=== PATIENT | female | born 1945 | race Caucasian/White ===

== ENCOUNTER 2018-06-09 20:01 | Emergency (ER) | payer MEDICARE ==
[2018-06-09 21:19] LABS: ABS Basophils 0 10^3/ul (0-0.2); ABS Eosinophils 0.2 10^3/ul (0-0.6); ABS Lymphocytes 0.9 10^3/ul (1.0-4.8); ABS Monocytes 0.9 10^3/ul (0-0.8); ABS Neutrophils 7.4 10^3/ul (1.5-7.7); ABS Nucleated RBC 0 10^3/ul; Hematocrit 36 % (35-47); Hemoglobin 12.1 g/dl (12.0-16.0); Lymphocyte % 9.6 % (25-47); Mean Corpuscular HGB Conc 34 g/dl (31-36); Mean Corpuscular Hemoglobin 32 pg (27-31); Mean Corpuscular Volume 97 fL (80-97); Nucleated Red Blood Cells % 0.1; Platelet Count 163 10^3/ul (150-450); Red Blood Count 3.75 10^6/ul (4.00-5.40); Red Cell Distribution Width 15 % (10.5-15); White Blood Count 9.4 10^3/ul (3.5-10.8)
[2018-06-09 21:38] LABS: EGFR Non-African American 57.8 (>60)
[2018-06-09] MEDS ORDERED: Ketorolac INJ* 30 MG/ML 1 ML VIAL IM ONE (22:52)
[2018-06-09 23:08] LABS: Urine Appearance Cloudy; Urine Blood 3+ (Negative); Urine Color Yellow; Urine Ketones Negative (Negative); Urine Protein Negative (Negative); Urine Red Blood Cell 3+(>10/hpf) (Absent); Urine Urobilinogen Negative (Negative); Urine White Blood Cell 2+(11-20/hpf) (Absent)
[2018-06-10] MEDS ORDERED: Tamsulosin CAP* 0.4 MG PO ONE (00:29)
--- NOTE | 2018-06-10 00:38 | ED ---
GI/ HPI - HPI Summary HPI Summary: 73-year-old female presents with left-sided flank pain for the past 2 days. She states that it started lower abdomen has moved around her abdomen but is now located mostly in the left lower quadrant. She denies any dysuria or hematuria. She has more pain when she tries to urinate. No previous belly surgeries. No medical conditions. She admits to nausea and vomiting. She admits to constipation. No diarrhea. No blood in her stool. She denies any history of diverticulitis. - History of Current Complaint Chief Complaint: EDFlankPain Time Seen by Provider: 06/09/18 22:40 Stated Complaint: LT SIDE FLANK PAIN Pain Intensity: 10 - Additional Pertinent History Primary Care Physician: KWAN - Allergy/Home Medications Allergies/Adverse Reactions: Allergies Allergy/AdvReac Type Severity Reaction Status Date / Time No Known Allergies Allergy Verified 06/09/18 20:05 Home Medications: Home Medications dilTIAZem HCl [Cartia Xt] 120 mg PO DAILY 06/09/18 [History Confirmed 06/09/18] fentaNYL PATCH 12 MCG/HR * [Duragesic Patch 12 Mcg/Hr *] 12 mcg TRANSDERM Q72H 06/09/18 [History Confirmed 06/09/18] fentaNYL PATCH 25 MCG/HR* [Duragesic PATCH 25 Mcg/Hr*] 25 mcg TRANSDERM Q72H [History Confirmed 06/09/18] oxyCODONE TAB* [Roxycodone TAB 5 mg*] 5 mg PO TID PRN MDD 15 mg 06/09/18 [ History Confirmed 06/09/18] PMH/Surg Hx/FS Hx/Imm Hx Endocrine/Hematology History: Reports: Hx Anticoagulant Therapy - asa, Hx Systemic Lupus Erythematosus, Hx Thyroid Disease - HYPOTHYROIDISM, Other Endocrine/Hematological Disorders - thrombocytopenia, hx lyme disease Denies: Hx Diabetes Cardiovascular History: Reports: Other Cardiovascular Problems/Disorders - A-FIB Denies: Hx Congestive Heart Failure, Hx Hypertension, Hx Pacemaker/ICD Respiratory History: Reports: Hx Chronic Bronchitis, Hx Seasonal Allergies, Hx Sleep Apnea - HAD PRIOR TO LOSING WEIGHT, Other Respiratory Problems/Disorders - QUIT SMOKING 03/2016 Denies: Hx Chronic Obstructive Pulmonary Disease (COPD) GI History: Reports: Hx Cirrhosis, Hx Gastroesophageal Reflux Disease, Hx Ulcer - HX OF SMALL ULCER, NO PROBLEMS NOW, Other GI Disorders - CONSTIPATION History: Reports: Hx Kidney Stones - HX OF KIDNEY STONE Denies: Hx Renal Disease, Other Problems/Disorders Musculoskeletal History: Reports: Hx Arthritis, Hx Back Problems - L3--L4 L4-- L5 fusion, Other Musculoskeletal History - chronic joint pain, obesity, osteoporosis Denies: Hx Osteoporosis Sensory History: Reports: Hx Cataracts, Hx Contacts or Glasses - READING, Hx Hearing Problem - tinnitus nos Denies: Hx Hearing Aid Opthamlomology History: Reports: Hx Cataracts, Hx Contacts or Glasses - READING Neurological History: Reports: Other Neuro Impairments/Disorders - OCCASIONAL DIZZINESS, Psychiatric History: Reports: Hx Anxiety - CLAUSTROPHOBIC IN TIGHT SPACES Denies: Hx Panic Disorder - Cancer History Cancer Type, 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 INCISION AND DRAINAGE OF LOWER TOOTH FOR INFECTION, [facility]. 2012 BILATERAL CATARACT EXTRACTION WITH IOL IMPLANT, [facility]. 2014 CYSTOSCOPY WITH MULTIPLE BLADDER BIOPSIES AND FULGERATION, [facility]. 05/22/2016 EBUS WITH ANESTHESIA, [facility]. 07/18/16 THORACOTOMY WITH LEFT LOWER LOBECTOMY Hx Anesthesia Reactions: No - Immunization History Immunizations Up to Date: Yes Infectious Disease History: No Infectious Disease History: Reports: Hx Hepatitis - HX AUTOIMMUNE HEPATITIS ( ) WITH SCARRING TO LIVER Denies: Traveled Outside the [place] in Last 30 Days - Family History Known Family History: Positive: Other Family History: Breast CA - Social History Alcohol Use: Rare Hx Substance Use: No Substance Use Type: Reports: None Substance Use Comment - Amount & Last Used: FENTANYL PATCHES Hx Tobacco Use: Yes Smoking Status (MU): Former Smoker Type: Cigarettes Amount Used/How Often: 1/2 -1 PPD Length of Time of Smoking/Using Tobacco: 45 YEARS Have You Smoked in the Last Year: Yes Review of Systems Negative: Fever Negative: Chest Pain Negative: Shortness Of Breath Positive: Abdominal Pain, Vomiting, Nausea. Negative: Diarrhea All Other Systems Reviewed And Are Negative: Yes Physical Exam Triage Information Reviewed: Yes Vital Signs On Initial Exam: Initial Vitals Temp Pulse Resp BP Pulse Ox 98.9 F 78 17 163/77 98 06/09/18 20:05 06/09/18 20:05 06/09/18 20:05 06/09/18 20:05 06/09/18 20:05 Vital Signs Reviewed: Yes Appearance: Positive: Well-Appearing Skin: Positive: Warm, Dry Head/Face: Positive: Normal Head/Face Inspection Eyes: Positive: Normal, Conjunctiva Clear ENT: Positive: Pharynx normal Respiratory/Lung Sounds: Positive: Clear to Auscultation, Breath Sounds Present Cardiovascular: Positive: Normal, RRR Abdomen Description: Positive: Soft, CVA Tenderness (L), Other: - LLQ Bowel Sounds: Positive: Present Musculoskeletal: Positive: Normal Neurological: Positive: Normal Psychiatric: Positive: Normal Diagnostics - Vital Signs Vital Signs Temp Pulse Resp BP Pulse Ox 06/09/18 23:34 68 18 140/77 95 06/09/18 20:05 98.9 F 78 17 163/77 98 - Laboratory Lab Results: Lab Results 06/09/18 06/09/18 06/09/18 Range/Units 21:10 21:10 21:10 WBC 9.4 (3.5-10.8) 10^3/ul RBC 3.75 L (4.00-5.40) 10^6/ul Hgb 12.1 (12.0-16.0) g/dl Hct 36 (35-47) % MCV 97 (80-97) fL MCH 32 H (27-31) pg MCHC 34 (31-36) g/dl RDW 15 (10.5-15) % Plt Count 163 (150-450) 10^3/ul MPV 9.0 (7.4-10.4) um3 Neut % (Auto) 78.6 (38-83) % Lymph % (Auto) 9.6 L (25-47) % [place] % (Auto) 9.3 H (0-7) % Eos % (Auto) 2.0 (0-6) % Baso % (Auto) 0.5 (0-2) % Absolute Neuts (auto) 7.4 (1.5-7.7) 10^3/ul Absolute Lymphs (auto) 0.9 L (1.0-4.8) 10^3/ul Absolute Monos (auto) 0.9 H (0-0.8) 10^3/ul Absolute Eos (auto) 0.2 (0-0.6) 10^3/ul Absolute Basos (auto) 0 (0-0.2) 10^3/ul Absolute Nucleated RBC 0 10^3/ul Nucleated RBC % 0.1 Sodium 141 (135-145) mmol/L Potassium 4.0 (3.5-5.0) mmol/L Chloride 106 (101-111) mmol/L Carbon Dioxide 29 (22-32) mmol/L Anion Gap 6 (2-11) mmol/L BUN 23 (6-24) mg/dL Creatinine 0.95 (0.51-0.95) mg/dL Est GFR ( Amer) 70.0 (>60) Est GFR (Non-Af Amer) 57.8 (>60) BUN/Creatinine Ratio 24.2 H (8-20) Glucose 128 H (70-100) mg/dL Lactic Acid 0.9 (0.5-2.0) mmol/L Calcium 9.5 (8.6-10.3) mg/dL Total Bilirubin 0.50 (0.2-1.0) mg/dL AST 27 (13-39) U/L ALT 16 (7-52) U/L Alkaline Phosphatase 92 (34-104) U/L C-Reactive Protein 14.33 H (<8.01) mg/L Total Protein 7.5 (6.4-8.9) g/dL Albumin 3.7 (3.2-5.2) g/dL Globulin 3.8 (2-4) g/dL Albumin/Globulin Ratio 1.0 (1-3) Lipase 28 (11.0-82.0) U/L Urine Color Urine Appearance Urine pH (5-9) Ur Specific [place] (1.010-1.030) Urine Protein (Negative) Urine Ketones (Negative) Urine Blood (Negative) Urine Nitrate (Negative) Urine Bilirubin (Negative) Urine Urobilinogen (Negative) Ur Leukocyte Esterase (Negative) Urine WBC (Auto) (Absent) Urine RBC (Auto) (Absent) Ur Squamous Epith Cells (Absent) Calcium Oxalate Crystal (Absent) Urine Bacteria (Absent) Hyaline Casts (Absent) Urine Glucose (Negative) Urine Ascorbic Acid (Negative) 06/09/18 Range/Units 22:55 WBC (3.5-10.8) 10^3/ul RBC (4.00-5.40) 10^6/ul Hgb (12.0-16.0) g/dl Hct (35-47) % MCV (80-97) fL MCH (27-31) pg MCHC (31-36) g/dl RDW (10.5-15) % Plt Count (150-450) 10^3/ul MPV (7.4-10.4) um3 Neut % (Auto) (38-83) % Lymph % (Auto) (25-47) % [place] % (Auto) (0-7) % Eos % (Auto) (0-6) % Baso % (Auto) (0-2) % Absolute Neuts (auto) (1.5-7.7) 10^3/ul Absolute Lymphs (auto) (1.0-4.8) 10^3/ul Absolute Monos (auto) (0-0.8) 10^3/ul Absolute Eos (auto) (0-0.6) 10^3/ul Absolute Basos (auto) (0-0.2) 10^3/ul Absolute Nucleated RBC 10^3/ul Nucleated RBC % Sodium (135-145) mmol/L Potassium (3.5-5.0) mmol/L Chloride (101-111) mmol/L Carbon Dioxide (22-32) mmol/L Anion Gap (2-11) mmol/L BUN (6-24) mg/dL Creatinine (0.51-0.95) mg/dL Est GFR ( Amer) (>60) Est GFR (Non-Af Amer) (>60) BUN/Creatinine Ratio (8-20) Glucose (70-100) mg/dL Lactic Acid (0.5-2.0) mmol/L Calcium (8.6-10.3) mg/dL Total Bilirubin (0.2-1.0) mg/dL AST (13-39) U/L ALT (7-52) U/L Alkaline Phosphatase (34-104) U/L C-Reactive Protein (<8.01) mg/L Total Protein (6.4-8.9) g/dL Albumin (3.2-5.2) g/dL Globulin (2-4) g/dL Albumin/Globulin Ratio (1-3) Lipase (11.0-82.0) U/L Urine Color Yellow Urine Appearance Cloudy Urine pH 5.0 (5-9) Ur Specific [place] 1.020 (1.010-1.030) Urine Protein Negative (Negative) Urine Ketones Negative (Negative) Urine Blood 3+ A (Negative) Urine Nitrate Negative (Negative) Urine Bilirubin Negative (Negative) Urine Urobilinogen Negative (Negative) Ur Leukocyte Esterase Trace A (Negative) Urine WBC (Auto) 2+(11-20/hpf) A (Absent) Urine RBC (Auto) 3+(>10/hpf) A (Absent) Ur Squamous Epith Cells Present A (Absent) Calcium Oxalate Crystal Present A (Absent) Urine Bacteria Absent (Absent) Hyaline Casts Present A (Absent) Urine Glucose Negative (Negative) Urine Ascorbic Acid * A (Negative) Result Diagrams: 06/09/18 21:10 06/09/18 21:10 Lab Statement: Any lab studies that have been ordered have been reviewed, and results considered in the medical decision making process. - CT abd CT Interpretation: Positive (See Comments) - 3 mm stone distal ureter CT Interpretation Completed By: Radiologist DUSTY Course/Dx - Course Course Of Treatment: 73-year-old female presents with left-sided flank pain for the past 2 days. She states that it started lower abdomen has moved around her abdomen but is now located mostly in the left lower quadrant. She denies any dysuria or hematuria. She has more pain when she tries to urinate. No previous belly surgeries. No medical conditions. She admits to nausea and vomiting. She admits to constipation. No diarrhea. No blood in her stool. She denies any history of diverticulitis. On exam tenderness left flank and left lower quadrant. Labs within normal limits. Urine shows potential infection. CT shows 3 mm stone distal ureter. Placed on Flomax and gave pain medication. Placed on Cipro. patient has follow up with Dr. Villar Friday. Patient understands and agrees with plan. - Diagnoses Differential Diagnoses - Female: Renal Calculi, Urinary Tract Infection, Ureteral Calculi Provider Diagnoses: Ureteral stone, UTI (urinary tract infection) Discharge - Sign-Out/Discharge Documenting (check all that apply): Patient Departure - Discharge Plan Condition: Good Disposition: HOME Prescriptions: Ciprofloxacin TAB* [Cipro 500 MG TAB*] 500 mg PO BID #9 tab Docusate CAP* [Colace Cap*] 100 mg PO DAILY #10 cap Ondansetron TAB* [Zofran 4 MG Tab*] 4 mg PO Q6H PRN #12 tab PRN Reason: Nausea oxyCODONE/Acetamin 5/325 MG* [Percocet 5/325 TAB*] 1 tab PO Q6H PRN #12 tab MDD 4 PRN Reason: Pain Tamsulosin CAP* [Flomax CAP*] 0.4 mg PO DAILY #10 cap Patient Education Materials: Urinary Tract Infection in Women (ED), Ureteral Stones (ED) Referrals: Ioana Garcia MD [Primary Care Provider] - Naeem Villar MD [Medical Doctor] - Additional Instructions: take cipro twice a day for 5 days Take ibuprofen or tyenlol every 6 hours and narcotic as needed every 6 hours, use colace daily for constipation Take Zofran every 6 hours for nausea as needed Take Flomax daily starting tomorrow, first dose given in ED until stone expelled , make sure stand up slowly Follow up with urology Strain urine until collect stone Return to ED if unable to manage pain at home, develop fever, or any new or worsening symptoms - Billing Disposition and Condition Condition: GOOD Disposition: Home
[2018-06-10] MEDS ORDERED: oxyCODONE TAB* 5 MG TAB PO ONE (00:41)
[2018-06-10] MEDS ORDERED: Ciprofloxacin TAB* 500 MG PO ONE (00:41)
[2018-06-10] MEDS ORDERED: O ndansetron ODT 4MG 2TAB PRPK 4 MG PAK PO ONE (00:46)
[2018-06-10] MEDS ORDERED: oxyCODONE/Acetamin 5/325 MG* TAB PO ONE (01:12)
[2018-06-10] MEDS ORDERED: Ondansetron ODT TAB* 4 MG PO ONE (01:21)
[2018-06-10 01:31] VITALS: BP 142/82
--- NOTE | 2018-06-10 07:52 | RAD ---
Indication: Left flank pain, left lower quadrant pain. CT of the abdomen and pelvis was performed without oral or IV contrast demonstration. Coronal and sagittal reconstructed images were obtained. Comparison is made with previous exam dated May 11, 2018. The lung valentine demonstrate emphysematous changes of lungs without evidence of alveolar consolidation. No nodules are noted. The heart is of normal size. No pericardial effusion is noted. Liver is small in size with nodular contours consistent with cirrhosis. No intrahepatic duct dilatation is noted. No definite masses identified although evaluation is limited. The gallbladder demonstrates no calcified gallstones. No pericholecystic fluid or wall thickening is noted. The pancreas demonstrates no mass or pancreatic duct dilatation. The spleen is normal in size. No adrenal lesions are noted. The kidneys demonstrate left hydronephrosis. Left hydroureter is noted. 3 mm calculi is noted at the left ureterovesicular junction. Additional nonobstructing right kidney is noted. No retroperitoneal adenopathy is noted. No dilated loops of bowel are noted. Diverticulosis without definite evidence of diverticulitis is noted. Uterus and ovaries are unremarkable. The urinary bladder is otherwise unremarkable. The uterus and ovaries are unremarkable. The urinary bladder is unremarkable. There is postoperative changes of the lower lumbar spine. Fusion rods are noted. IMPRESSION: 3 mm calculi in the left ureterovesicular junction with left hydronephrosis. Findings consistent with cirrhotic liver. No other masses or fluid collections are noted.
== END 2018-06-10 01:30 | disposition home or self-care (01) ==
LOC: ED 20:01
DX: N13.2 Hydronephrosis with renal and ureteral calculous obstruction (principal); Z87.442 Personal history of urinary calculi; N39.0 Urinary tract infection, site not specified; K74.60 Unspecified cirrhosis of liver; R11.2 Nausea with vomiting, unspecified; K59.00 Constipation, unspecified; I48.91 Unspecified atrial fibrillation; Z79.82 Long term (current) use of aspirin; Z85.118 Personal history of other malignant neoplasm of bronchus and lung; Z85.51 Personal history of malignant neoplasm of bladder; Z80.3 Family history of malignant neoplasm of breast; Z87.891 Personal history of nicotine dependence
CPT/HCPCS: 36415; 74176; 80053; 81003; 81015; 83605; 83690; 85025; 86140; 87086; 96372; 99283; A9270-GY; J1885

== ENCOUNTER 2019-02-26 11:50 | Emergency (ER) | payer MEDICARE ==
[2019-02-26] MEDS ORDERED: Ondansetron ODT TAB* 4 MG PO ONE (12:08)
[2019-02-26] MEDS ORDERED: Ondansetron INJ* 2 MG/ML VIAL IV ONE (12:40)
[2019-02-26] MEDS ORDERED: NS 0.9% 1000 ML** 1,000 ML IV ONE (12:40)
[2019-02-26] MEDS ORDERED: Morphine 4 MG/ML VIAL (1 ml) 4 MG/ML VIAL IV ONE (12:56)
[2019-02-26 13:13] LABS: ABS Basophils 0.1 10^3/ul (0-0.2); ABS Eosinophils 0.1 10^3/ul (0-0.6); ABS Lymphocytes 0.4 10^3/ul (1.0-4.8); ABS Monocytes 0.3 10^3/ul (0-0.8); ABS Neutrophils 4.9 10^3/ul (1.5-7.7); ABS Nucleated RBC 0 10^3/ul; Eosinophil % 1.2 %; Hematocrit 36 % (33-41); Hemoglobin 11.8 g/dL (12.0-16.0); Lymphocyte % 6.6 %; Mean Corpuscular HGB Conc 33 g/dL (31-36); Mean Corpuscular Hemoglobin 33 pg (27-31); Mean Corpuscular Volume 101 fL (80-97); Nucleated Red Blood Cells % 0.2; Platelet Count 198 10^3/uL (150-450); Red Blood Count 3.53 10^6 /uL (3.70-4.87); Red Cell Distribution Width 16 % (10.5-15); White Blood Count 5.8 10^3/uL (3.5-10.8)
[2019-02-26 13:29] LABS: ALT 54 U/L (7-52); Albumin 3.2 g/dL (3.2-5.2); Albumin/Globulin Ratio 0.7 (1-3); Alkaline Phosphatase 233 U/L (34-104); BUN/Creatinine Ratio 29.2 (8-20); Blood Urea Nitrogen 19 mg/dL (6-24); C Reactive Protein 37.02 mg/L (<8.01); CO2 Carbon Dioxide 31 mmol/L (22-32); Calcium 9.2 mg/dL (8.6-10.3); Chloride 101 mmol/L (101-111); EGFR African American 108.4 (>60); EGFR Non-African American 89.6 (>60); Globulin 4.5 g/dL (2-4); Glucose 138 mg/dL (70-100); Sodium 140 mmol/L (135-145); Total Protein 7.7 g/dL (6.4-8.9)
[2019-02-26 13:30] LABS: Troponin I 0.01 ng/mL (<0.04)
[2019-02-26 13:31] LABS: Anion Gap 8 mmol/L (2-11)
--- NOTE | 2019-02-26 13:48 | ED ---
Abdominal Pain/Female - HPI Summary HPI Summary: Pt. is a 73 y.o female who presents to the ER for acute RUQ pain and vomiting since this morning. Pt. states she woke up with significant RUQ pain that radiates into back with N/V. Denies CP or SOB. Luis A fever, recent illness, diarrhea. Past medical hx of autoimmune hepatitis, hypothyroid, MEGAN, and chronic pain. Sxs are moderate in severity. Pain is constant without modifying factors. - History of Current Complaint Chief Complaint: EDAbdPain Stated Complaint: STOMACH PAIN/VOMITING PER PT Time Seen by Provider: 02/26/19 12:36 Hx Obtained From: Patient Pain Intensity: 10 Allergies/Adverse Reactions: Allergies Allergy/AdvReac Type Severity Reaction Status Date / Time No Known Allergies Allergy Verified 01/08/19 12:57 Home Medications: Home Medications Cholecalciferol (Vitamin D3) [Vitamin D3] 400 unit PO DAILY 02/26/19 [History Confirmed 02/26/19] azaTHIOprine TAB(*) [Imuran TAB(*)] 50 mg PO DAILY 02/26/19 [History Confirmed 02/26/19] PMH/Surg Hx/FS Hx/Imm Hx Previously Healthy: Yes Endocrine/Hematology History: Reports: Hx Anticoagulant Therapy - asa, Hx Systemic Lupus Erythematosus, Hx Thyroid Disease - HYPOTHYROIDISM, Other Endocrine/Hematological Disorders - thrombocytopenia, hx lyme disease Denies: Hx Diabetes Cardiovascular History: Reports: Hx Angina - infrequently with exertion, Hx Myocardial Infarction, Other Cardiovascular Problems/Disorders - A-FIB Denies: Hx Congestive Heart Failure, Hx Coronary Artery Disease, Hx Hypercholesterolemia, Hx Hypertension, Hx Pacemaker/ICD, Hx Valvular Heart Disease Respiratory History: Reports: Hx Chronic Bronchitis, Hx Seasonal Allergies, Hx Sleep Apnea - HAD PRIOR TO LOSING WEIGHT, Other Respiratory Problems/Disorders - QUIT SMOKING 03/2016 Denies: Hx Asthma, Hx Chronic Obstructive Pulmonary Disease (COPD) GI History: Reports: Hx Cirrhosis, Hx Gastroesophageal Reflux Disease, Hx Ulcer - HX OF SMALL ULCER, NO PROBLEMS NOW, Other GI Disorders - CONSTIPATION History: Reports: Hx Kidney Stones - HX OF KIDNEY STONE Denies: Hx Renal Disease, Other Problems/Disorders Musculoskeletal History: Reports: Hx Arthritis, Hx Back Problems - L3--L4 L4-- L5 fusion, Other Musculoskeletal History - chronic joint pain, obesity, osteoporosis Denies: Hx Osteoporosis Sensory History: Reports: Hx Cataracts, Hx Contacts or Glasses - READING, Hx Hearing Problem - tinnitus nos Denies: Hx Hearing Aid Opthamlomology History: Reports: Hx Cataracts, Hx Contacts or Glasses - READING Neurological History: Reports: Other Neuro Impairments/Disorders - OCCASIONAL DIZZINESS, Psychiatric History: Reports: Hx Anxiety - CLAUSTROPHOBIC IN TIGHT SPACES Denies: Hx Panic Disorder - Cancer History Cancer Type, 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 INCISION AND DRAINAGE OF LOWER TOOTH FOR INFECTION, [facility]. 2013 BILATERAL CATARACT EXTRACTION WITH IOL IMPLANT, [facility]. 2015 CYSTOSCOPY WITH MULTIPLE BLADDER BIOPSIES AND FULGERATION, [facility]. 05/22/2016 EBUS WITH ANESTHESIA, [facility]. 07/18/16 THORACOTOMY WITH LEFT LOWER LOBECTOMY Hx Anesthesia Reactions: No Infectious Disease History: No Infectious Disease History: Reports: Hx Hepatitis - HX AUTOIMMUNE HEPATITIS ( ) WITH SCARRING TO LIVER Denies: Hx Clostridium Difficile, Hx Human Immunodeficiency Virus (HIV), Hx of Known/Suspected MRSA, Hx Shingles, Hx Tuberculosis, History Other Infectious Disease, Traveled Outside the in Last 30 Days - Family History Known Family History: Positive: Other, Non-Contributory Family History: Breast CA - Social History Occupation: Retired Lives: With Family Alcohol Use: None Hx Substance Use: No Substance Use Type: Reports: None Substance Use Comment - Amount & Last Used: FENTANYL PATCHES Hx Tobacco Use: Yes Smoking Status (MU): Former Smoker Type: Cigarettes Amount Used/How Often: 1/2 -1 PPD Length of Time of Smoking/Using Tobacco: 45 YEARS Have You Smoked in the Last Year: Yes Review of Systems Constitutional: Negative Negative: Fever, Chills Cardiovascular: Negative Negative: Palpitations, Chest Pain Respiratory: Negative Negative: Shortness Of Breath, Cough Positive: Abdominal Pain, Vomiting, Nausea. Negative: Diarrhea Genitourinary: Negative All Other Systems Reviewed And Are Negative: Yes Physical Exam Triage Information Reviewed: Yes Vital Signs On Initial Exam: Initial Vitals Temp Pulse Resp BP Pulse Ox 97 F 63 18 116/98 97 02/26/19 11:52 02/26/19 11:52 02/26/19 11:52 02/26/19 11:52 02/26/19 11:52 Vital Signs Reviewed: Yes Appearance: Positive: Well-Nourished - Pt. sitting up in bed, appears uncomfortable but nontoxic. Skin: Positive: Warm, Dry Head/Face: Positive: Normal Head/Face Inspection Eyes: Positive: Normal, EOMI, ANH Neck: Positive: Supple Respiratory/Lung Sounds: Positive: Clear to Auscultation, Breath Sounds Present Cardiovascular: Positive: Normal, RRR Abdomen Description: Positive: Other: - Obese. Abd. is soft with marked tenderness to the RUQ with positive gongora sign. Musculoskeletal: Negative: Edema Left, Edema Right Neurological: Positive: Normal, CN Intact II-III Psychiatric: Positive: Affect/Mood Appropriate Diagnostics - Vital Signs Vital Signs Temp Pulse Resp BP Pulse Ox 02/26/19 13:32 78 116/54 95 02/26/19 13:05 17 02/26/19 13:02 64 130/54 95 02/26/19 13:00 61 97 02/26/19 12:40 67 96 02/26/19 11:52 97 F 63 18 116/98 97 - Laboratory Lab Results: Lab Results 02/26/19 02/26/19 02/26/19 Range/Units 12:59 12:59 12:59 WBC 5.8 (3.5-10.8) 10^3/uL RBC 3.53 L (3.70-4.87) 10^6 /uL Hgb 11.8 L (12.0-16.0) g/dL Hct 36 (33-41) % MCV 101 H (80-97) fL MCH 33 H (27-31) pg MCHC 33 (31-36) g/dL RDW 16 H (10.5-15) % Plt Count 198 (150-450) 10^3/uL MPV 9.0 (7.4-10.4) fL Neut % (Auto) 84.7 % Lymph % (Auto) 6.6 % Lane % (Auto) 5.5 % Eos % (Auto) 1.2 % Baso % (Auto) 2.0 % Absolute Neuts (auto) 4.9 (1.5-7.7) 10^3/ul Absolute Lymphs (auto) 0.4 L (1.0-4.8) 10^3/ul Absolute Monos (auto) 0.3 (0-0.8) 10^3/ul Absolute Eos (auto) 0.1 (0-0.6) 10^3/ul Absolute Basos (auto) 0.1 (0-0.2) 10^3/ul Absolute Nucleated RBC 0 10^3/ul Nucleated RBC % 0.2 Sodium 140 (135-145) mmol/L Potassium TNP Chloride 101 (101-111) mmol/L Carbon Dioxide 31 (22-32) mmol/L Anion Gap 8 (2-11) mmol/L BUN 19 (6-24) mg/dL Creatinine 0.65 (0.51-0.95) mg/dL Est GFR ( Amer) 108.4 (>60) Est GFR (Non-Af Amer) 89.6 (>60) BUN/Creatinine Ratio 29.2 H (8-20) Glucose 138 H (70-100) mg/dL Lactic Acid 1.5 (0.5-2.0) mmol/L Calcium 9.2 (8.6-10.3) mg/dL Magnesium 2.0 (1.9-2.7) mg/dL Total Bilirubin 2.10 H (0.2-1.0) mg/dL AST TNP ALT 54 H (7-52) U/L Alkaline Phosphatase 233 H (34-104) U/L Troponin I 0.01 (<0.04) ng/mL C-Reactive Protein 37.02 H (<8.01) mg/L Total Protein 7.7 (6.4-8.9) g/dL Albumin 3.2 (3.2-5.2) g/dL Globulin 4.5 H (2-4) g/dL Albumin/Globulin Ratio 0.7 L (1-3) Lipase 16 (11.0-82.0) U/L Result Diagrams: 02/26/19 12:59 02/26/19 17:04 Lab Statement: Any lab studies that have been ordered have been reviewed, and results considered in the medical decision making process. Abdominal Pain Fem Course/Dx - Course Course Of Treatment: Pt. presenting for RUQ pain and vomiting. She is afebrile with stable VS. Pt. started on IV fluids, zofran and morphine. Labs, GB US, ECG and CXR ordered. ECG done at 1246 shows a sinus rhythm of 64bpm, normal axis, no ST elevation or depression, unchanged from prior tracing. GB US per radiology: IMPRESSION: Hepatomegaly is noted. Gallbladder is poorly visualized and may be filled with. sludge. The common duct measures up to 1.5 cm. CBC shows normal WBC. Bilirubin elevated at 2.1, AST hemolyzed, ALT 54, alk phos 233 , CRP 37. CXR negative for acute findings per radiology. Pt. re-examined and pain has greatly improved. Results discussed. Surgery paged at 1430, Dr. Boyer. Dr. Boyer in the OR and I spoke with his nurse. To return call. 1543 : Surgery repaged. I spoke with Dr. Boyer who recommend GI consult for MRCP and potential ERCP. GI paged at 1550 and then again 1620. I spoke with Dr. Tim Aparicio who recommends MRCP and she will exam pt. in the ER. I spoke with Dr. Mosher, hospitalist, who will consult on pt. 1640: Dr. Becker in to see pt. MRCP cannot be performed till 1999. [facility] apparently has no GI coverage for the weekend. Discussed with Dr. Street who recommends to obtain MRCP first and if obstruction is present will need to transfer for ERCP. Pt. will be signed out to Sandro Pan PA-C for MRCP and disposition. - Diagnoses Differential Diagnosis: Positive: Appendicitis, Bowel Obstruction, Constipation , Gall Bladder Disease, Hepatitis, [place], Pancreatitis, Renal Colic, Urinary Tract Infection Provider Diagnoses: Common bile duct dilatation, Cirrhosis Discharge - Sign-Out/Discharge Documenting (check all that apply): Sign-Out Patient Signing out patient TO: Sandro Pan Patient Received Moderate/Deep Sedation with Procedure: No - Discharge Plan Condition: Stable Referrals: Ioana Garcia MD [Primary Care Provider] - - Billing Disposition and Condition Condition: STABLE
[2019-02-26] MEDS ORDERED: LORazepam TAB(*) 1 MG PO ONE (17:00)
[2019-02-26 17:37] LABS: Activated Partial Thrombo Time 33.8 seconds (26.0-36.3); INR 1.06 (0.77-1.02); Potassium Redraw 4.4 mmol/L (3.5-5.0)
[2019-02-26 19:21] LABS: Urine Appearance Clear; Urine Bacteria Absent (Absent); Urine Bilirubin Negative (Negative); Urine Blood 1+ (Negative); Urine Color Amber; Urine Glucose Negative (Negative); Urine Ketones Trace (Negative); Urine Nitrite Negative (Negative); Urine Protein Negative (Negative); Urine Red Blood Cell 2+(6-10/hpf) (Absent); Urine Specific Gravity 1.014 (1.010-1.030); Urine Urobilinogen Positive (Negative); Urine White Blood Cell Trace(0-5/hpf) (Absent)
--- NOTE | 2019-02-26 20:10 | CONS ---
GASTROENTEROLOGY CONSULT REPORT: DATE OF CONSULT: 02/26/19 CONSULTING PROVIDER: ER. REASON FOR CONSULT: Elevated bilirubin and dilated CBD. HISTORY OF PRESENT ILLNESS: Ms. Dee is a 73-year-old woman with a history of autoimmune hepatitis with well-compensated cirrhosis; SLE; hypothyroidism; CAD; AFib; MEGAN; chronic pain on oxycodone; history of lung cancer, status post resection, and bladder cancer, who is admitted with right upper quadrant pain. Ms. Dee was in her usual state of health until this morning when she developed acute right upper quadrant pain. Pain was quite severe and radiated to her back. Associated with nausea and several episodes of nonbilious emesis. She reported feeling very sweaty, but she did not take her temperature. No similar episodes of pain. She had history of constipation, which remains unchanged. No other GI symptoms. . PAST MEDICAL HISTORY: 1. Autoimmune hepatitis with well-compensated cirrhosis as seen on imaging. 2. Systemic lupus erythematosus. 3. Hypothyroidism. 4. Coronary artery disease with a history of an WI. 5. Atrial fibrillation. 6. Sleep apnea. 7. GERD. 8. Constipation. 9. History of kidney stones. 10. History of chronic back pain. 11. Bladder cancer, status post fulguration in 2014. 12. Lung cancer, status post left lower lobectomy in 2016. PAST SURGICAL HISTORY: 1. Titanium plates in lower back in 2004. 2. Cataract extraction in 2012. 3. Cystoscopy with bladder biopsies and fulguration in 2014. 4. EBUS and thoracotomy with left lower lobectomy in 2016. MEDICATIONS: Include: 1. Imuran 50 mg daily. 2. Oxycodone 5 mg tablet. 3. Vitamin D. ALLERGIES: No known drug allergies. FAMILY HISTORY: No known GI or liver disease. SOCIAL HISTORY: Former smoker. [id number] smoking history. No significant alcohol use or drug use. REVIEW OF SYSTEMS: The patient denies any symptoms other than the GI symptoms as discussed in the HPI. PHYSICAL EXAM: Vital Signs: Afebrile, heart rate 63, blood pressure 116/98, 97% on room air. General: Well-appearing elderly woman, no acute distress. Several family members at bedside. HEENT: Mucous membranes are moist. Cardiovascular: Regular rate and rhythm. Pulmonary: Breathing comfortably. Abdomen: Soft with tenderness in the right upper quadrant. Extremities: No edema. Neuro: A and O x3. Skin: No jaundice. DIAGNOSTIC STUDIES/LAB DATA: Labs reviewed. White count 5.8, hemoglobin 11.8, hematocrit 36, platelet count 198. Sodium 140, creatinine 0.65. AST not reported, ALT 54, alk phos 233, bilirubin 2.1. CRP 37. Albumin 3.2, lipase 16. Imaging: Gallbladder ultrasound demonstrated hepatomegaly with cirrhotic- appearing liver. Gallbladder is likely filled with sludge, CBD measures 1.5 cm. IMPRESSION AND RECOMMENDATIONS: Ms. Dee is a 73-year-old woman with multiple medical conditions including autoimmune hepatitis with well- compensated cirrhosis, who is admitted with acute onset right upper quadrant pain. Labs notable for mildly elevated transaminase level as well as a mildly elevated alk phos and bilirubin. Gallbladder ultrasound demonstrates a poorly visualized gallbladder, although there is a suspicion that the gallbladder is filled with sludge. There is noted to be a dilated common bile duct to 1.5 cm. Ms. Dee is currently clinically stable with some residual right upper quadrant pain on exam, although her pain is overall improved with pain medication. At this point, I would recommend an MRCP to evaluate for the possibility of choledocholithiasis given the imaging findings and the patient's RUQ pain. If MRCP demonstrates common bile duct stone, then the patient will need to have an ERCP scheduled. She is not currently cholangitic, so she does not need to emergently undergo such a procedure. - Continue to monitor CBC and LFTs. Please check INR given history of cirrhosis. - Please order MRCP to evaluate for CBD stone. - Recommend NPO if the patient remains uncomfortable as eating may exacerbate her pain. - Of note, the patient has been followed by Dr. Atkinson in the past. It seems that she has has history of an elevated AFP without any evidence of liver lesions. Last AFP was in the 90's when checked in April 2018. Please recheck AFP while the patient is in-house. Thank you very much for this consult. GI will continue to follow. [id number] #: [id number] MTDD
--- NOTE | 2019-02-26 23:41 | PN ---
Progress Note - Progress Note Date of Service: 02/26/19 Note: Patient was signed out to me by Deejay Maki's PA pending results of MRCP. MRCP positive for choledocholithiasis and recommending ERCP. Discussed patient with Dr. Becker GI on-call who states she does not do ERCP. In addition we do not have GI coverage this weekend. Dr. Becker recommended transfer for ERCP. [facility] has GI pharmacy operations specialist however they do not perform ERCP. Patient was subsequently accepted to medicine floor at [facility] by Dr Valdez hospitalist. Patient transferred in stable condition. Patient approves transfer.
[2019-02-27 00:31] VITALS: BP 148/91
== END 2019-02-27 00:30 | disposition home or self-care (01) ==
LOC: ED 11:50
DX: K83.8 Other specified diseases of biliary tract (principal); K74.60 Unspecified cirrhosis of liver; R10.11 Right upper quadrant pain; Z79.01 Long term (current) use of anticoagulants; M32.9 Systemic lupus erythematosus, unspecified; I25.2 Old myocardial infarction; K21.9 Gastro-esophageal reflux disease without esophagitis; Z87.442 Personal history of urinary calculi; Z85.118 Personal history of other malignant neoplasm of bronchus and lung; Z87.891 Personal history of nicotine dependence
CPT/HCPCS: 36415; 71045; 74181; 76376; 76705; 80053; 81003; 81015; 83605; 83690; 83735; 84484; 85025; 85610; 85730; 86140; 87086; 93005; 96361; 96374; 96375; 99284; A9270-GY; J2270; J2405

== ENCOUNTER 2019-03-20 17:25 | Inpatient (IN) | payer MEDICARE ==
[2019-03-20] MEDS ORDERED: Pantoprazole* 80 mg IN NS 80 MG/250 ML BAG IVPB ONE (17:33)
[2019-03-20] MEDS ORDERED: Tranexamic Acid 1,000 MG/10 ML 1,000 MG in NS 0.9% 50 ML* 50 ML IV ONE (17:33)
[2019-03-20] MEDS ORDERED: Pantoprazole IV* 40 MG IV ONE (17:33)
[2019-03-20] MEDS ORDERED: Tranexamic Acid 1,000 MG/10 ML SDV IV ONE (17:35)
--- NOTE | 2019-03-20 17:42 | ED ---
GI/ HPI - HPI Summary HPI Summary: This patient is a 73 year old female brought in by ambulance to [facility] with a chief complaint of hematemesis and melena since last night. Patient noticed the bloody diarrhea last night. Patient called EMS after starting to vomit blood. Per EMS, patients stool has bright red blood on the top and bottom and resembles coffee grounds. The pain is rated 6/10 in severity. Symptoms aggravated by nothing. Symptoms alleviated by nothing. Patient additionally reports abd pain also sta - History of Current Complaint Chief Complaint: EDAbdPain Time Seen by Provider: 03/20/19 17:31 Stated Complaint: VOMITING BLOOD PER EMS Hx Obtained From: Patient Onset/Duration: Started Days Ago, Still Present Timing: Constant Current Severity: Severe Pain Intensity: 6 Location of Pain: Diffuse Associated Signs and Symptoms: Positive: Hematemesis, Bright Red Blood w/Stool, Melena, Other: - abd pain Aggravating Factor(s): Nothing Alleviating Factor(s): Nothing - Additional Pertinent History Primary Care Physician: KWAN - Allergy/Home Medications Allergies/Adverse Reactions: Allergies Allergy/AdvReac Type Severity Reaction Status Date / Time No Known Allergies Allergy Verified 03/15/19 15:08 PMH/Surg Hx/FS Hx/Imm Hx Previously Healthy: No Endocrine/Hematology History: Reports: Hx Anticoagulant Therapy - asa, Hx Systemic Lupus Erythematosus, Hx Thyroid Disease - HYPOTHYROIDISM, Other Endocrine/Hematological Disorders - thrombocytopenia, hx lyme disease Denies: Hx Diabetes Cardiovascular History: Reports: Hx Angina - infrequently with exertion, Hx Myocardial Infarction, Other Cardiovascular Problems/Disorders - A-FIB Denies: Hx Congestive Heart Failure, Hx Coronary Artery Disease, Hx Hypercholesterolemia, Hx Hypertension, Hx Pacemaker/ICD, Hx Valvular Heart Disease Respiratory History: Reports: Hx Chronic Bronchitis, Hx Seasonal Allergies, Hx Sleep Apnea - HAD PRIOR TO LOSING WEIGHT, Other Respiratory Problems/Disorders - QUIT SMOKING 03/2016 Denies: Hx Asthma, Hx Chronic Obstructive Pulmonary Disease (COPD) GI History: Reports: Hx Cirrhosis, Hx Gastroesophageal Reflux Disease, Hx Ulcer - HX OF SMALL ULCER, NO PROBLEMS NOW, Other GI Disorders - CONSTIPATION History: Reports: Hx Kidney Stones - HX OF KIDNEY STONE Denies: Hx Renal Disease, Other Problems/Disorders Musculoskeletal History: Reports: Hx Arthritis, Hx Back Problems - L3--L4 L4-- L5 fusion, Other Musculoskeletal History - chronic joint pain, obesity, osteoporosis Denies: Hx Osteoporosis Sensory History: Reports: Hx Cataracts, Hx Contacts or Glasses - READING, Hx Hearing Problem - tinnitus nos Denies: Hx Hearing Aid Opthamlomology History: Reports: Hx Cataracts, Hx Contacts or Glasses - READING Neurological History: Reports: Other Neuro Impairments/Disorders - OCCASIONAL DIZZINESS, Psychiatric History: Reports: Hx Anxiety - CLAUSTROPHOBIC IN TIGHT SPACES Denies: Hx Panic Disorder - Cancer History Cancer Type, Location and Year: LEFT LUNG. BLADDER Hx Chemotherapy: No Hx Radiation Therapy: No - Surgical History Surgery Procedure, Year, and Place: 2005 NEURO TITANIUM PLATES LOWER BACK, [facility]. INCISION AND DRAINAGE OF LOWER TOOTH FOR INFECTION, [facility] [place]. 2013 BILATERAL CATARACT EXTRACTION WITH IOL IMPLANT, [facility]. 2014 CYSTOSCOPY WITH MULTIPLE BLADDER BIOPSIES AND FULGERATION, [facility]. 05/22/2016 EBUS WITH ANESTHESIA, [facility]. 07/18/16 THORACOTOMY WITH LEFT LOWER LOBECTOMY Hx Anesthesia Reactions: No Infectious Disease History: No Infectious Disease History: Reports: Hx Hepatitis - HX AUTOIMMUNE HEPATITIS ( ) WITH SCARRING TO LIVER Denies: Hx Clostridium Difficile, Hx Human Immunodeficiency Virus (HIV), Hx of Known/Suspected MRSA, Hx Shingles, Hx Tuberculosis, History Other Infectious Disease, Traveled Outside the [place] in Last 30 Days - Family History Known Family History: Positive: Other Family History: Breast CA - Social History Alcohol Use: None Hx Substance Use: Yes Substance Use Comment - Amount & Last Used: FENTANYL PATCHES Hx Tobacco Use: Yes Smoking Status (MU): Former Smoker Type: Cigarettes Amount Used/How Often: 1/2 -1 PPD Length of Time of Smoking/Using Tobacco: 45 YEARS Have You Smoked in the Last Year: Yes Review of Systems Negative: Fever Positive: Epistaxis Positive: Abdominal Pain, Vomiting - hematemesis, Diarrhea - melena All Other Systems Reviewed And Are Negative: Yes Physical Exam - Summary Physical Exam Summary: Appearance: well appearing, moderate pain distress Skin: warm, dry, gross pallor Head/face: Dried blood on lips and mouth Eyes: EOMI, ANH ENT: mucous membranes moist Neck: supple, non-tender Respiratory: CTA, breath sounds present Cardiovascular: Tachycardic, weak radial pulses Abdomen: mild diffuse abd tenderness, soft Bowel Sounds: present Musculoskeletal: normal, strength/ROM intact Neuro: normal, sensory motor intact, A&Ox3 Triage Information Reviewed: Yes Vital Signs On Initial Exam: Initial Vitals Temp Pulse Resp BP Pulse Ox 97.6 F 84 18 101/72 88 03/20/19 17:26 03/20/19 17:26 03/20/19 17:26 03/20/19 17:26 03/20/19 17:26 Vital Signs Reviewed: Yes Procedures - Central Line Right Jugular Triple Lumen Central Venous Catheter Central Line Lumen: triple Central Line Procedure: sterile drapes applied, sterile dressing applied, no betadine prep - c Central Line Position: internal jugular (R) Anesthesia: Lidocaine cc's of anesthesia: 3 Complications: none Central Line Post Position: sutured, good blood return, position confirmed w/ CXR Diagnostics - Vital Signs Vital Signs Temp Pulse Resp BP Pulse Ox 03/20/19 17:26 97.6 F 84 18 101/72 88 - Laboratory Lab Results: laboratory results are pending as they were difficult to obtain due to poor peripheral access. There obtained through central line I placed. Lab Statement: Any lab studies that have been ordered have been reviewed, and results considered in the medical decision making process. - Radiology CXR Radiology Interpretation Completed By: ED Physician Summary of Radiographic Findings: CXR reveals, per ED physician, Central lining in the right subclavian vein. NG tube is appropriately placed. Pending official report. - CT CTA Head CT Interpretation Completed By: Radiologist - EKG 1731 Cardiac Rate: NL EKG Rhythm: Sinus Rhythm - 80 BPM Summary of EKG Findings: An EKG, taken 1730, reveals NSR (80 BPM), Normal axis, normal interval, long QT, low voltage, nonspecific ST. Re-Evaluation - Re-Evaluation First Eval Change: Improved - Blood pressure now 110 systolic. GIGU Course/Dx - Course Course Of Treatment: Nurse's notes reviewed. Patient presents with large amount of upper GI bleed and melena. An NG tube was placed and 150 cc of coffee -ground emesis was retrieved. Her blood pressure was 90s on arrival and has improved with IV fluids and blood to 110 systolic. A right intrajugular venous catheter was placed and was found to and up in the right subclavian. The hospitalist team is aware of this. IV tranexamic acid and IV protonic/protonic drip were given. She has stabilized. Laboratories are pending at time of disposition. The patient was discussed with the GI doctor who will evaluate her in the ICU. Hospitalist team is at the bedside evaluating. - Diagnoses Differential Diagnoses - Female: Other - Upper GI bleed, adverse effect of medication, lower GI bleed, gastritis/peptic ulcer disease Provider Diagnoses: Upper GI bleed, Hemorrhagic shock - Physician Notifications Discussed Care Of Patient With: Dudley Vera - GI Time Discussed With Above Provider: 18:08 - We discussed patient care with Dr. Vera (GI) at 1808 and they accepted consult and agreed to come see patient. Instructed by Provider To: Admit As Inpatient - We discussed patient care with Dr. La (Hospitalist) at 1830 and he accepted the patient for admission. - Critical Care Time Critical Care Time: 30-74 min Discharge - Sign-Out/Discharge Documenting (check all that apply): Patient Departure Patient Received Moderate/Deep Sedation with Procedure: No - Discharge Plan Condition: Critical Disposition: ADMITTED TO [facility] Referrals: Ioana Garcia MD [Primary Care Provider] - - Billing Disposition and Condition Condition: CRITICAL Disposition: Admitted to [facility] - Attestation Statements Document Initiated by Minie: Yes Documenting Scribe: Bari Perla Provider For Whom [facility] is Documenting (Include Credential): Charan Mathews MD Scribe Attestation: Bari Sung scribed for Charan Mathews MD on 03/20/19 at 1906. Scribe Documentation Reviewed: Yes Provider Attestation: The documentation as recorded by the Bari lezama accurately reflects the service I personally performed and the decisions made by me, Charan Mathews MD Status of Scribe Document: Viewed
[2019-03-20] MEDS ORDERED: Lidocaine 2% JELLY* 6 ML JELLY TOPICAL ONE (17:44)
[2019-03-20 19:12] LABS: ABS Basophils 0 10^3/ul (0-0.2); ABS Eosinophils 0 10^3/ul (0-0.6); ABS Lymphocytes 0.7 10^3/ul (1.0-4.8); ABS Monocytes 0.3 10^3/ul (0-0.8); ABS Neutrophils 6.1 10^3/ul (1.5-7.7); ABS Nucleated RBC 0 10^3/ul; Eosinophil % 0.3 %; Hematocrit 24 % (33-41); Hemoglobin 7.9 g/dL (12.0-16.0); Mean Corpuscular HGB Conc 33 g/dL (31-36); Mean Corpuscular Hemoglobin 33 pg (27-31); Mean Corpuscular Volume 97 fL (80-97); Mean Platelet Volume 9.1 fL (7.4-10.4); Nucleated Red Blood Cells % 0.2; Platelet Count 171 10^3/uL (150-450); Red Blood Count 2.43 10^6 /uL (3.70-4.87); Red Cell Distribution Width 20 % (10.5-15); White Blood Count 7.2 10^3/uL (3.5-10.8)
[2019-03-20 19:21] LABS: Activated Partial Thrombo Time 31.9 seconds (26.0-36.3); INR 1.41 (0.82-1.09)
[2019-03-20 20:00] LABS: BUN/Creatinine Ratio 56.3 (8-20); EGFR African American 97.9 (>60); EGFR Non-African American 80.9 (>60); Potassium 4.4 mmol/L (3.5-5.0)
[2019-03-20 20:01] LABS: Albumin 2.3 g/dL (3.2-5.2); Albumin/Globulin Ratio 0.8 (1-3); Calcium 7.6 mg/dL (8.6-10.3); Globulin 2.8 g/dL (2-4); Total Bilirubin 0.8 mg/dL (0.2-1.0); Total Protein 5.1 g/dL (6.4-8.9)
[2019-03-20] MEDS ORDERED: Octreotide Acetate* 50 MCG in NS 0.9% 50 ML* 50 ML IVPB ONE (20:18)
[2019-03-20] MEDS ORDERED: cefTRIAXone(*) 1 GM in NS 0.9% 50 ML* 50 ML IVPB ONE (20:20)
[2019-03-20] MEDS ORDERED: Acetaminophen TAB* 325 MG PO PRN (20:23)
[2019-03-20] MEDS ORDERED: Albuterol 2.5 MG/3 ML NEB.SOL* (0.083%) INH PRN (20:25)
[2019-03-20] MEDS: NS 0.9% 1000 ML** 1,000 ML IV SCH (20:40)
[2019-03-20] MEDS ORDERED: Spiriva Inhaler DEVICE* 1 EACH DEVICE INH SCH ×2 (21:00)
[2019-03-20] MEDS: fentaNYL PATCH 12 MCG/HR TRANSDERM SCH (21:49)
[2019-03-20] MEDS: fentaNYL PATCH 25 MCG/HR TRANSDERM SCH (21:50)
--- NOTE | 2019-03-20 22:12 | HP ---
HISTORY AND PHYSICAL: DATE OF ADMISSION: 03/20/2019 CHIEF COMPLAINT: Hematemesis and bright red blood per rectum. PRIMARY CARE PROVIDER: Dr. Ioana Garcia. PATIENT'S FARMWORKER VEGETABLE: Yi Alfonso, daughter. CODE STATUS: Full. HPI was obtained from the patient who is an excellent historian. HISTORY OF PRESENT ILLNESS: 73-year-old female with a past medical history of autoimmune hepatitis, on azathioprine; compensated cirrhosis with last EGD in 2013 without varices; paroxysmal atrial fibrillation, not on anticoagulation; COPD; hypothyroidism and chronic back pain, on intermediate frame tender opiate therapy, who presented with 1 day of melena and associated hematemesis. The patient reports that she had dark melena starting the night prior to presentation and then this progressed to both dark tarry stools and then bright red blood per rectum concurrently starting several hours prior to this admission. She also started vomiting coffee- ground emesis and then mark red blood. She has mild abdominal pain associated with this that is epigastric and RUQ in nature and rated 6/10, that does not radiate. She has actually been complaining of this pain for several weeks, was seen in the [facility] emergency room 02/26/2019 after she had 2 days of upper abdominal pain and had cholestatic liver function tests with a dilated CBD on US (1.5cm - possible sludge in GB) and possible filling defect CBD on MRCP. She was transferred to [facility] where she underwent ERCP and sphincterotomy with no stones seen after CBD swept. She reports pain has been intermittent since she had the ERCP. Furthermore, her AFP has been elevated and she is undergoing MRI as an outpatient. EMERGENCY ROOM COURSE: Blood pressure was 105/72 on arrival, heart rate 75, respiratory rate is 20, 99% on room air, temperature 97.9. Because of dramatic presentation, an NG tube was placed and immediately 150 cc of coffee-ground emesis was retrieved on suction. She had a right triple-lumen IJ placed with the tip to right subclavian without complication and received immediately 1 L fluid bolus and a massive transfusion protocol including tranexamic acid was initiated given her long history. She received 2 units of blood and stat CBC that was taken mid transfusion showed hemoglobin of 7.8, INR 1.4. CMP with LFTs largely stable. Pantoprazole 80 mg IV x1 was given, as above tranexamic acid drip and IV infusion was started. The patient did receive 2 units of blood and 1 L of normal saline and the hospitalist team was asked to evaluate the patient. PAST MEDICAL HISTORY: 1. Autoimmune hepatitis, managed on prednisone and then azathioprine 2. Compensated cirrhosis, seen by imaging with last EGD in 2013 showing no varices 3. Paroxysmal atrial fibrillation, not on anticoagulation 4. COPD; hypothyroidism 5. chronic back pain, on custodial opiate therapy 6. History of lung cancer in 2016, found on screening and treated surgically; 7. History of bladder cancer in 2014, low grade, treated by Dr. Villar 8. Lupus which is a diagnosis from 1983, later rediagnosed as autoimmune hepatitis; 9. History of peptic ulcer disease' 10. Sleep apnea, not on CPAP 11. Osteoarthritis. PAST SURGICAL HISTORY: Back surgery in 2004, cystoscopy with retrieval of kidney stones, cataract removal, cystoscopy in 2014 for her urothelial cancer, lung resection in 2016, left upper lobe. MEDICATIONS: 1. Aspirin 325 mg p.o. daily. 2. Azathioprine 50 mg p.o. daily. 3. Vitamin D3 400 units p.o. daily. 4. Diltiazem 120 mg p.o. daily. 5. Levothyroxine 100 mcg p.o. q.a.m. 6. Multivitamin 1 tab p.o. q. daily. 7. Oxycodone 5 mg p.o. t.i.d. p.r.n. for pain. 8. Tiotropium inhaler 2.5 mcg inhaled daily. 9. Fentanyl patch 12 mcg transdermal q.72 hours and fentanyl patch 25 mcg transdermal q.72 hours. 10. Gabapentin 300mg PO QHS ALLERGIES: No known drug allergies. FAMILY HISTORY: Noncontributory. SOCIAL HISTORY: The patient lives alone independently. She is retried. Tobacco - she has a former 15-pack year history and quit in 2016. Alcohol, denies current or past use. Illicits - denies any use. REVIEW OF SYSTEMS: Constitutional: The patient denies fevers, chills, or malaise. HEENT: Denies vision changes, sore throat, headache. Cardiovascular: Denies chest pain, palpitations, orthopnea. Respiratory: Denies shortness of breath, cough or pleuritic chest pain. GI: Does endorse nausea, vomiting and bright red blood per rectum. Denies mark diarrhea or constipation. Does endorse abdominal pain, 6/10, epigastric. : Denies dysuria or hematuria. Musculoskeletal: Denies myalgias, arthralgias, or weakness past her baseline back pain. Skin: Denies any rashes or lesions. Neurological: Denies focal weakness or numbness. Psychiatric: Denies delusions, depression and anxiety. Endocrine: Denies polyuria, polydipsia. Heme: Denies lymphadenopathy and bruising. PHYSICAL EXAMINATION GENERAL APPEARANCE: This is a pleasant woman in no acute distress, sitting in bed comfortably with nasogastric tube. VITAL SIGNS: At the time of physical exam, blood pressure is 107/65, heart rate 75, respiratory rate is 13, oxygen saturation 96% on room air. The patient is afebrile. HEENT: She has sclerae anicteric. PERRLA. Extraocular muscles are intact. Oropharynx is with moist mucous membranes with no lesions. NGT in place. NECK: Supple with no supraclavicular or cervical lymphadenopathy. R TL IJ in place. RESPIRATORY: Chest is clear to auscultation bilaterally. CARDIAC: Regular rate and rhythm with no murmurs, rubs or gallops. ABDOMEN: Belly is soft, non-distended, tender to palpation in epigastric, but otherwise no rebound or guarding. No fluid wave, no caput or other stigmata of chronic liver disease SKIN: Skin with no breakdown or lesions. MUSCULOSKELETAL: She moves all 4 limbs spontaneously. EXTREMITIES: Without edema and 2+ pedal pulses bilaterally. NEURO: Cranial nerves II through XII are intact with no focal neurologic deficits. The patient is A and O x3. DIAGNOSTIC STUDIES/LAB DATA: CBC shows white blood cell count of 7.2, hemoglobin 7.9, hematocrit 24, platelets 171. INR is 1.41. CMP, lipase is pending at the time of evaluation. Imaging: A chest x-ray was done which shows no active cardiopulmonary disease and a right triple lumen with tip terminating in the right subclavian. EKG was done, which showed normal sinus rhythm with no signs of acute ischemia, low voltage, and a QTc of 490. Imaging, labs and EKG were reviewed by myself. ASSESSMENT AND PLAN: 73-year-old female with autoimmune hepatitis, compensated cirrhosis, last EGD in 2013 showing no varices; paroxysmal atrial fibrillation, not on anticoagulation; chronic obstructive pulmonary disease; hypothyroid; chronic back pain, on custodial opiate therapy, who presented with hematemesis and melena for 1 day concerning for upper gastrointestinal bleed. She is hemodynamically stable after 1 L of fluid and 2 units of packed red blood cells. She has a history of antral ulcers, but never history of varices, unclear if recent ERCP is related to current presentation 1. Gastrointestinal bleed as above, likely upper source. We will discontinue the nasogastric tube. She is status post antifibrinolytic therapy in the emergency room. She did have aspirin use in the last 24 hours prior to her admission. Central access was established. We will continue gentle IV fluids at 125 cc per hour for a total of 2 L. She is status post 2 units of packed red blood cells and will hold on further, type and screen is in place and blood bank is aware. IV PPI gtt will be continued. Octreotide drip will be started given her history of cirrhosis seen on imaging. She has no physical exam findings for decompensated cirrhosis at this time. We will hold her aspirin and DVT prophylaxis at this time and we will also dose with ceftriaxone 1 g x1 given her cirrhosis history. 2. Autoimmune hepatitis. We will currently hold her azathioprine. 3 Cirrhosis as above. Compensated. MELD 13. Octreotide and ceftriaxone added given this history. She also has an elevated AFP which can be followed up as an outpatient as she has been doing, pursuing MRI to r/o HCC. 4. Hypothyroidism. We will continue Synthroid. We will convert to IV 50 mcg dose given n.p.o. status. 5. Low back pain. She is on chronic intermediate frame tender opiate use. We will continue her fentanyl patches and breakthrough IV morphine low dose for abdominal pain. Continue gabapentin. 6. Paroxysmal atrial fibrillation. We will hold her p.o. diltiazem at this time and can convert to IV p.r.n. if pressures allow. 7. Chronic obstructive pulmonary disease. We will offer p.r.n. nebs and continue Spiriva. She is currently not oxygen dependent. 8. FEN: The patient is n.p.o. with GI consult in place likely for EGD in the next 24 to 48 hours. 9. DVT prophylaxis will be held at this time given active GI bleed. 10. Disposition: Stable for admission to ICU at this time given recent GI bleed and ability for closer monitoring. 11. Code status is full. TIME SPENT: Forty minutes was spent on the planning of this hospitalization with over half of that spent directly at the bedside providing direct patient care. The patient and family are advised of plans on admission and agree and have no further questions. [id number] #: [id number] KELLI
[2019-03-20] MEDS: Octreotide Acetate* 500 MCG in NS 0.9% 100 ML* 100 ML IVPB SCH (22:44)
[2019-03-20] MEDS: Morphine 10 MG/ML VIAL (1 ml) IV PRN (23:53)
[2019-03-20 23:58] LABS: Hematocrit 23 % (33-41); Mean Corpuscular HGB Conc 35 g/dL (31-36); Mean Corpuscular Hemoglobin 32 pg (27-31); Mean Corpuscular Volume 94 fL (80-97); Mean Platelet Volume 8.9 fL (7.4-10.4); Platelet Count 159 10^3/uL (150-450); Red Blood Count 2.46 10^6 /uL (3.70-4.87); Red Cell Distribution Width 21 % (10.5-15)
[2019-03-21] MEDS: Gabapentin CAP(*) 300 MG PO SCH ×2 (01:10→20:49)
[2019-03-21] MEDS: NS 0.9% 1000 ML** 1,000 ML IV SCH (05:02)
[2019-03-21 05:53] LABS: ABS Basophils 0.1 10^3/ul (0-0.2); ABS Eosinophils 0 10^3/ul (0-0.6); ABS Lymphocytes 1.7 10^3/ul (1.0-4.8); ABS Monocytes 0.3 10^3/ul (0-0.8); ABS Neutrophils 3.6 10^3/ul (1.5-7.7); ABS Nucleated RBC 0 10^3/ul; Eosinophil % 0.7 %; Hematocrit 21 % (33-41); Hemoglobin 6.9 g/dL (12.0-16.0); Lymphocyte % 28.8 %; Mean Corpuscular HGB Conc 34 g/dL (31-36); Mean Corpuscular Hemoglobin 32 pg (27-31); Mean Corpuscular Volume 94 fL (80-97); Mean Platelet Volume 9.2 fL (7.4-10.4); Nucleated Red Blood Cells % 0.1; Platelet Count 137 10^3/uL (150-450); Red Cell Distribution Width 22 % (10.5-15); White Blood Count 5.8 10^3/uL (3.5-10.8)
[2019-03-21] MEDS ORDERED: Levothyroxine INJ* 100 MCG/5 ML VIAL IV SCH (06:00)
[2019-03-21 06:09] LABS: Albumin 2.1 g/dL (3.2-5.2); Albumin/Globulin Ratio 0.7 (1-3); BUN/Creatinine Ratio 59.4 (8-20); Calcium 7.4 mg/dL (8.6-10.3); EGFR African American 101.2 (>60); EGFR Non-African American 83.6 (>60); Globulin 2.9 g/dL (2-4); Total Bilirubin 0.9 mg/dL (0.2-1.0)
[2019-03-21] MEDS: fentaNYL Patch Check Q Shift 1 NOTE FOLLOW UP SCH ×2 (07:34→18:54)
[2019-03-21] MEDS: Morphine 10 MG/ML VIAL (1 ml) IV PRN ×2 (08:30→23:52)
[2019-03-21] MEDS: Tiotropium CAP.INH* CAP.INH/18 MCG (USE ORDER SET !) INH SCH (08:47)
[2019-03-21] MEDS: Octreotide Acetate* 500 MCG in NS 0.9% 100 ML* 100 ML IVPB SCH (09:09)
[2019-03-21] MEDS ORDERED: Midazolam* 1 MG/ML 10 ML VIAL (10 MG) ONE (10:04)
[2019-03-21] MEDS ORDERED: fentaNYL* 50 MCG/ML 2 ML VIAL (100 MCG VIAL) ONE (10:04)
[2019-03-21] MEDS: Pantoprazole* 80 mg IN NS 80 MG/250 ML BAG IVPB SCH ×2 (10:08→20:43)
--- NOTE | 2019-03-21 10:13 | PN ---
Subjective Date of Service: 03/21/19 Interval History: Patient feeling better, less dyspnea, less abdominal pain than on admission yesterday. She presented with melena, then BRBPR. No rectal bleeding this AM.' Nurse Hadley noted IJ was not securely sutured, had migrated about 2 cm cephalad. He repositioned this AM, and secured better. Family History: Unchanged from Admission Social History: Unchanged from Admission Past Medical History: Unchanged from Admission Objective Active Medications: Acetaminophen (Tylenol Tab*) 325 mg PO Q6H PRN PRN Reason: PAIN OR TEMPERATURE Albuterol (Ventolin 2.5 Mg/3 Ml Neb.Michaela*) 2.5 mg INH Q4H PRN PRN Reason: DYSPNEA Device (Tiotropium Inhaler Device*) 1 each INH .USE w/ SPIRIVA CAPS [facility] Diltiazem HCl (Cardizem Cd Cap*) 120 mg PO DAILY [facility] Fentanyl (Duragesic Patch 12 Mcg/Hr *) 12 mcg TRANSDERM Q72H [facility] Last Admin: 03/20/19 21:49 Dose: 12 mcg Fentanyl (Duragesic Patch 25 Mcg/Hr*) 25 mcg TRANSDERM Q72H [facility] Last Admin: 03/20/19 21:50 Dose: 25 mcg Gabapentin (Neurontin Cap(*)) 300 mg PO BEDTIME [facility] Last Admin: 03/21/19 01:10 Dose: 300 mg Sodium Chloride (Ns 0.9% 1000 Ml) 1,000 mls @ 125 mls/hr IV Q8H [facility] Stop: 03/21/19 12:14 Last Admin: 03/21/19 05:02 Dose: 125 mls/hr Octreotide Acetate 500 mcg/ (Sodium Chloride) 101 mls @ 10.1 mls/hr IVPB Q10H [facility] Last Admin: 03/21/19 09:09 Dose: 10.1 mls/hr Levothyroxine Sodium (Synthroid Tab*) 100 mcg PO 0600 [facility] Morphine Sulfate (Morphine 10 Mg/Ml Vial (1 Ml)) 5 mg IV Q6H PRN PRN Reason: PAIN Last Admin: 03/21/19 08:30 Dose: 5 mg Piotropium [place] (Spiriva Cap.Inh*) 1 cap INH DAILY [facility] Last Admin: 03/21/19 08:47 Dose: 1 cap Vital Signs - 8 hr 03/21/19 03/21/19 03/21/19 05:00 06:00 06:51 Temperature 36.8 C 36.9 C Pulse Rate 69 69 Respiratory 16 12 15 Rate Blood Pressure 116/49 116/56 (mmHg) O2 Sat by Pulse 93 96 Oximetry 03/21/19 03/21/19 03/21/19 07:00 08:00 08:21 Temperature 36.9 C 37.0 C Pulse Rate 71 73 Respiratory 18 17 16 Rate Blood Pressure 104/69 124/59 (mmHg) O2 Sat by Pulse 97 96 Oximetry Oxygen Devices in Use Now: None Appearance: pale, alert, no distress Eyes: No Scleral Icterus Ears/Nose/Mouth/Throat: NL Teeth, Lips, Gums Neck: NL Appearance and Movements; NL JVP Respiratory: Symmetrical Chest Expansion and Respiratory Effort, Clear to Auscultation Cardiovascular: NL Sounds; No Murmurs; No JVD, RRR Abdominal: No Hepatosplenomegaly, - - tender epigastric, +BS, no masses Lymphatic: No Cervical Adenopathy Skin: No Rash or Ulcers Neurological: Alert and Oriented x 3 Lines/Tubes/Other Access: Clean, Dry and Intact Central Line - RT IJ Nutrition: Taking PO's Result Diagrams: 03/21/19 05:49 03/21/19 05:49 Additional Lab and Data: Laboratory Tests 03/20/19 03/21/19 18:26 05:49 Calcium 7.6 L 7.4 L AST 71 H 75 H Albumin 2.3 L 2.1 L Microbiology and Other Data: Microbiology 03/20/19 22:43 Nasal Screen MRSA (PCR) - Final Nasal Mrsa Not Detected Diagnostic Imaging: CXR portable: RT IJ w/ tip in RT subclavian Assess/Plan/Problems-Billing Assessment: - Patient Problems (1) Upper GI hemorrhage Current Visit: Yes Status: Acute Priority: High Code(s): K92.2 - GASTROINTESTINAL HEMORRHAGE, UNSPECIFIED SNOMED Code(s): 17917944 Comment: -Differential includes peptic ulcer, variceal bleed, or dieulafoy lesion -Spoke with Dr. Vera, patient will have EGD this AM. -S/P 3 units PRBC, will have H/H this AM, may need 4th unit -Restarted IV protonix drip, continued on octreotide (2) Afib Current Visit: No Status: Acute Priority: Medium Code(s): I48.91 - UNSPECIFIED ATRIAL FIBRILLATION SNOMED Code(s): 15736464 Comment: Sinus rhythm. Restarted oral cardizem. Off aspirin and avoiding anticoagulants due to GI bleed. (3) DVT prophylaxis Current Visit: No Status: Acute Priority: Low Code(s): QOG6430 - SNOMED Code(s): 286300095 Comment: -SCDs (4) Central line complication Current Visit: Yes Status: Acute Priority: Low Code(s): T82.9XXA - UNSP COMP OF CARDIAC AND VASCULAR PROSTH DEV/GRFT, INIT SNOMED Code(s): 336472820 Comment: -Reviewed CXR with Dr. Madrigal. -Can continue to use CVL Status and Disposition: -inpatient
[2019-03-21 10:46] LABS: Hematocrit 25 % (33-41); Hemoglobin 8.5 g/dL (12.0-16.0)
--- NOTE | 2019-03-21 12:00 | PRO ---
CC: Dr. Garcia* PROCEDURE REPORT: DATE OF PROCEDURE: 03/21/19 REFERRING PHYSICIAN: Dr. Garcia. PROCEDURE: EGD. INDICATION: Melena, hematemesis. MEDICATIONS GIVEN: 1. 25 mcg IV fentanyl. 2. 5 mg IV Versed. DESCRIPTION OF PROCEDURE: After the EGD procedure, including the risks, benefits, and alternatives not limited to perforation, surgery, and/or were explained to the patient, written consent was then obtained. IV medication was given and a bite block was placed between the teeth. An Olympus gastroscope was then inserted into the patient's mouth, advanced down the esophagus, into the stomach, into the distal duodenum. In the esophagus, at the GE junction, no esophageal varices were seen, no erosive esophagitis was seen. Scope was advanced through the GE junction into the body of the stomach. Retroflex view revealed 2 small clean based ulcers, no stigmata of recent hemorrhage. Forward view did reveal a few small erosions, again no stigmata. The mucosa was slightly cobblestonish. I did take biopsies given the fact that her alpha fetoprotein has been slightly elevated and there is a concern about possible gastric malignancy. The scope was advanced through the pylorus, into the duodenal bulb, into the distal duodenum, no abnormalities were seen. Bile was seen. No blood was seen. The scope was then withdrawn from the patient. She tolerated the procedure well and was returned to the care of the ICU staff in stable condition. IMPRESSION: 1. Complete upper endoscopy into the distal duodenum with biopsies. 2. Gastric cardia clean based ulcers, likely secondary to a nonsteroidal use. I would avoid nonsteroidals at this time. 3. Cobblestoning of the mucosa. Biopsies were obtained to rule out gastric cancer. 4. No varices were seen. 5. We could stop her octreotide. We will continue with the IV PPI. We will follow along. [id number]/[facility] #: [id number] [facility]
--- NOTE | 2019-03-21 12:00 | CONS ---
GASTROENTEROLOGY CONSULTATION: DATE OF CONSULT: 03/21/19. PROCEDURE: EGD. REASON FOR CONSULT: Hematemesis, melena, bright red blood per rectum. HISTORY OF PRESENT ILLNESS: Ms. Dee is a very pleasant 73-year-old female who has a history of autoimmune hepatitis who is on azithromycin. She had seen [facility] Department of Hepatology a few months ago for increased alpha-fetoprotein. They did not see any obvious evidence of hepatocellular carcinoma; however, ordered a follow up with a MRI of her abdomen for further evaluation. She additionally had suspected cholelithiasis with no evidence of cholecystitis and she underwent an ERCP at [facility] approximately 3 weeks ago. Unfortunately, I do not have the results of this other than no stones were found. The patient states that approximately 24 hours ago, she began to vomit. She threw up bright red blood per rectum in addition to coffee-grounds. She was having mild abdominal pain. She does take a full strength aspirin 325 mg every day. She denies any other nonsteroidals. She was having mild epigastric discomfort. She came into the emergency room last night. She did receive 3 units of blood over night and received IV PPI. This morning, she states that she feels well. She has had no further vomiting. No abdominal pain. She states that she feels much better. No bowel movements today. She normally is constipated. PAST MEDICAL HISTORY: Significant for : 1. Autoimmune hepatitis with cirrhosis, last EGD was 2013 that I have the results of no varices then; however, she did have an ERCP a few weeks ago, I do not have the results. 2. Paroxysmal a-fib. 3. COPD. 4. Chronic pain. 5. Lung cancer. 6. Bladder cancer. 7. Lupus. 8. Peptic ulcer disease. 9. Sleep apnea. 10. Osteoarthritis. PAST SURGICAL HISTORY: Includes back surgery, cataract surgery, lung resection. MEDICATIONS UPON ADMISSION: 1. Gabapentin. 2. Fentanyl patch. 3. Oxycodone. 4. Levothyroxine. 5. Diltiazem. 6. Azathioprine 50 mg a day. 7. Aspirin 325 mg a day. ALLERGIES: None. FAMILY HISTORY: No liver disease in the family. SOCIAL HISTORY: She lives alone. She denies any recent tobacco. She quit approximately 2 to 3 years ago. No alcohol use. No IV drug use. REVIEW OF SYSTEMS: Twelve systems were reviewed and other than that mentioned in the HPI were unremarkable. PHYSICAL EXAM: Temperature is 98.6, blood pressure is 124/59, pulse is 72. General: Well-appearing female, in no apparent distress, alert, oriented, pleasant, and fluent. HEENT: Mucous membranes are moist without lesions, ulcers, or exudate. Neck is supple. Trachea is midline. Head is normocephalic , atraumatic. She does have some spider angiomata on her face. Heart: Irregular rate and rhythm. Lungs: Clear to auscultation bilaterally. No wheezes, rales, or rhonchi. Abdomen: Positive bowel sounds. Soft, nontender, nondistended. No hepatosplenomegaly, masses, rebound, or guarding. Skin is warm and dry. Neuro: No asterixis. DIAGNOSTIC STUDIES/LAB DATA: Labs of note, white count is 5.8, hemoglobin is 6.9, it has fallen from 8, she has received 3 units of blood, platelets of 137. INR is 1.41. Chemistry panel shows a BUN of 41, with a creatinine of 0.69, bilirubin is normal at 0.9, AST is 75, ALT 32, albumin is 2.1. ASSESSMENT AND PLAN: This is a pleasant 73-year-old female with a history of autoimmune hepatitis and resulting cirrhosis who presented with hematemesis and melena,. Possible etiologies will be peptic ulcer disease secondary to her full strength aspirin, esophageal varices, portal hypertensive gastropathy. Unfortunately, I do not have the results of her most ERCP which could shed some light on these possible etiologies. At this point , she does need an upper endoscopy to evaluate for all the above. This was explained to the patient and her daughter. I will make arrangement for it in the ICU urgently. [id number]/[facility] #: [id number] MTDD
[2019-03-21] MEDS: Diltiazem CD CAP* 120 MG PO SCH (12:53)
[2019-03-22] MEDS: Levothyroxine TAB* 100 MCG TAB PO SCH (05:21)
[2019-03-22 05:42] LABS: ABS Basophils 0.1 10^3/ul (0-0.2); ABS Eosinophils 0.2 10^3/ul (0-0.6); ABS Lymphocytes 1.2 10^3/ul (1.0-4.8); ABS Monocytes 0.3 10^3/ul (0-0.8); ABS Neutrophils 3.1 10^3/ul (1.5-7.7); ABS Nucleated RBC 0 10^3/ul; Eosinophil % 3.3 %; Hematocrit 25 % (33-41); Hemoglobin 8.4 g/dL (12.0-16.0); Lymphocyte % 24.5 %; Mean Corpuscular HGB Conc 34 g/dL (31-36); Mean Corpuscular Hemoglobin 32 pg (27-31); Mean Corpuscular Volume 94 fL (80-97); Mean Platelet Volume 8.9 fL (7.4-10.4); Nucleated Red Blood Cells % 0.2; Platelet Count 134 10^3/uL (150-450); Red Blood Count 2.65 10^6 /uL (3.70-4.87); Red Cell Distribution Width 20 % (10.5-15); White Blood Count 4.9 10^3/uL (3.5-10.8)
[2019-03-22 06:06] LABS: Albumin 2.3 g/dL (3.2-5.2); Albumin/Globulin Ratio 0.7 (1-3); BUN/Creatinine Ratio 38.5 (8-20); Calcium 7.6 mg/dL (8.6-10.3); EGFR African American 108.4 (>60); EGFR Non-African American 89.6 (>60); Globulin 3.2 g/dL (2-4); Potassium 3.8 mmol/L (3.5-5.0); Total Bilirubin 1.1 mg/dL (0.2-1.0); Total Protein 5.5 g/dL (6.4-8.9)
[2019-03-22] MEDS: fentaNYL Patch Check Q Shift 1 NOTE FOLLOW UP SCH ×2 (06:35→18:16)
[2019-03-22] MEDS: Pantoprazole* 80 mg IN NS 80 MG/250 ML BAG IVPB SCH ×2 (07:22→16:57)
[2019-03-22] MEDS: Diltiazem CD CAP* 120 MG PO SCH (08:17)
[2019-03-22] MEDS: Tiotropium CAP.INH* CAP.INH/18 MCG (USE ORDER SET !) INH SCH (08:24)
[2019-03-22] MEDS ORDERED: Tiotropium Respimt 2.5 mcg(NF) 1 PUFF MDI INH SCH (09:00)
[2019-03-22] MEDS ORDERED: Pantoprazole IV* 40 MG IV SCH (09:00)
--- NOTE | 2019-03-22 10:21 | PN ---
Subjective Date of Service: 03/22/19 Interval History: Patient has no new complaints. Tolerated a bit of food. No abdominal pain, no melena. Reports Dr. Toro wanted a "liver scan" tomorrow. Family History: Unchanged from Admission Social History: Unchanged from Admission Past Medical History: Unchanged from Admission Objective Active Medications: Acetaminophen (Tylenol Tab*) 325 mg PO Q6H PRN PRN Reason: PAIN OR TEMPERATURE Albuterol (Ventolin 2.5 Mg/3 Ml Neb.Michaela*) 2.5 mg INH Q4H PRN PRN Reason: DYSPNEA Device (Tiotropium Inhaler Device*) 1 each INH .USE w/ SPIRIVA CAPS [facility] Diltiazem HCl (Cardizem Cd Cap*) 120 mg PO DAILY [facility] Last Admin: 03/22/19 08:17 Dose: 120 mg Fentanyl (Duragesic Patch 12 Mcg/Hr *) 12 mcg TRANSDERM Q72H [facility] Last Admin: 03/20/19 21:49 Dose: 12 mcg Fentanyl (Duragesic Patch 25 Mcg/Hr*) 25 mcg TRANSDERM Q72H [facility] Last Admin: 03/20/19 21:50 Dose: 25 mcg Gabapentin (Neurontin Cap(*)) 300 mg PO BEDTIME [facility] Last Admin: 03/21/19 20:49 Dose: 300 mg Pantoprazole Sodium (Protonix Iv Bag*) 80 mg in 250 mls @ 25 mls/hr IVPB Q10H [facility] Stop: 03/22/19 18:00 Last Admin: 03/22/19 07:22 Dose: 25 mls/hr Levothyroxine Sodium (Synthroid Tab*) 100 mcg PO 0600 [facility] Last Admin: 03/22/19 05:21 Dose: 100 mcg Morphine Sulfate (Morphine 10 Mg/Ml Vial (1 Ml)) 5 mg IV Q6H PRN PRN Reason: PAIN Last Admin: 03/21/19 23:52 Dose: 5 mg Pharmacy Profile Note (Fentanyl Patch Check Q Shift) 1 note FOLLOW UP 0700, 1900 [facility] Last Admin: 03/22/19 06:35 Dose: 1 note Tiotropium [place] (Spiriva Cap.Inh*) 1 cap INH DAILY [facility] Last Admin: 03/22/19 08:24 Dose: 1 cap Vital Signs - 8 hr 03/22/19 03/22/19 03/22/19 03:40 07:34 08:00 Temperature 36.5 C 36.6 C Pulse Rate 63 64 Respiratory 16 20 18 Rate Blood Pressure 129/62 125/59 (mmHg) O2 Sat by Pulse 98 99 Oximetry Oxygen Devices in Use Now: None Appearance: alert, no distress Eyes: No Scleral Icterus Ears/Nose/Mouth/Throat: NL Teeth, Lips, Gums Neck: NL Appearance and Movements; NL JVP Respiratory: Symmetrical Chest Expansion and Respiratory Effort, Clear to Auscultation Cardiovascular: NL Sounds; No Murmurs; No JVD, RRR Abdominal: - - tender epigastric, +BS, no masses Extremities: No Edema Neurological: Alert and Oriented x 3 Lines/Tubes/Other Access: Clean, Dry and Intact Peripheral IV, Clean, Dry and Intact Central Line Nutrition: Taking PO's Result Diagrams: 03/22/19 05:30 03/22/19 05:30 Additional Lab and Data: Laboratory Tests 03/22/19 05:30 Total Bilirubin 1.10 H AST 153 H ALT 69 H Total Protein 5.5 L Assess/Plan/Problems-Billing Assessment: 73 year old woman with autoimmune hepatitis, cirrhosis, who presented with upper GI bleed - Patient Problems (1) Upper GI hemorrhage Current Visit: Yes Status: Acute Priority: High Code(s): K92.2 - GASTROINTESTINAL HEMORRHAGE, UNSPECIFIED SNOMED Code(s): 25227116 Comment: -EGD showed peptic ulcer, presumed related to NSAIDs -S/P 3 units PRBC, HGB is stable today -Finish protonix drip this afternoon, switch to PO PPI. (2) Afib Current Visit: No Status: Acute Priority: Medium Code(s): I48.91 - UNSPECIFIED ATRIAL FIBRILLATION SNOMED Code(s): 55121279 Comment: -Sinus rhythm continues -Continue oral cardizem -Off aspirin and anticoagulants; discussed risk of stroke with patient (3) DVT prophylaxis Current Visit: No Status: Acute Priority: Low Code(s): WTU4160 - SNOMED Code(s): 918863789 Comment: -SCDs (4) Cirrhosis of liver Current Visit: Yes Status: Acute Priority: Medium Comment: -Discussed with Dr. Toro -Will need 3-phase scan to follow up liver disease Status and Disposition: -inpatient, possible discharge tomorrow
--- NOTE | 2019-03-22 10:43 | PN ---
Progress Note - Progress Note Date of Service: 03/22/19 SOAP: Subjective: []Feel better today. Was able to eat. Had hemoptysis and blood in stool on admission. EGD with ulcers, not bleeding now on PPI. Recent history significant for admission to [facility] earlier in month for biliary obstruction. MRCP/ERCP showed CBD stenos. She has long standing cirrhosis and had an AFP > 1100. Seen in our clinc on Friday as follow up to recent admission to [facility], planned follow up liver imaging with [address] with IVC. PmHX: lung cancer, 3 yrs CORRIE, autoimmune hepatitis and cirrhosis. Acetaminophen (Tylenol Tab*) 325 mg PO Q6H PRN PRN Reason: PAIN OR TEMPERATURE Albuterol (Ventolin 2.5 Mg/3 Ml Neb.Michaela*) 2.5 mg INH Q4H PRN PRN Reason: DYSPNEA Device (Tiotropium Inhaler Device*) 1 each INH .USE w/ SPIRIVA CAPS [facility] Diltiazem HCl (Cardizem Cd Cap*) 120 mg PO DAILY [facility] Last Admin: 03/22/19 08:17 Dose: 120 mg Fentanyl (Duragesic Patch 12 Mcg/Hr *) 12 mcg TRANSDERM Q72H [facility] Last Admin: 03/20/19 21:49 Dose: 12 mcg Fentanyl (Duragesic Patch 25 Mcg/Hr*) 25 mcg TRANSDERM Q72H [facility] Last Admin: 03/20/19 21:50 Dose: 25 mcg Gabapentin (Neurontin Cap(*)) 300 mg PO BEDTIME [facility] Last Admin: 03/21/19 20:49 Dose: 300 mg Pantoprazole Sodium (Protonix Iv Bag*) 80 mg in 250 mls @ 25 mls/hr IVPB Q10H [facility] Stop: 03/22/19 18:00 Last Admin: 03/22/19 07:22 Dose: 25 mls/hr Levothyroxine Sodium (Synthroid Tab*) 100 mcg PO 0600 [facility] Last Admin: 03/22/19 05:21 Dose: 100 mcg Morphine Sulfate (Morphine 10 Mg/Ml Vial (1 Ml)) 5 mg IV Q6H PRN PRN Reason: PAIN Last Admin: 03/21/19 23:52 Dose: 5 mg Pantoprazole Sodium (Protonix Tab*) 40 mg PO 2000 [facility] Pharmacy Profile Note (Fentanyl Patch Check Q Shift) 1 note FOLLOW UP 0700, 1900 [facility] Last Admin: 03/22/19 06:35 Dose: 1 note Tiotropium [place] (Spiriva Cap.Inh*) 1 cap INH DAILY [facility] Last Admin: 03/22/19 08:24 Dose: 1 cap Objective: [] Vital Signs Temp Pulse Resp BP Pulse Ox 97.8 F 64 18 125/59 97 03/22/19 07:34 03/22/19 08:25 03/22/19 08:25 03/22/19 07:34 03/22/19 08:25 HEENT pale CTA RRR 70s, S1S2 and no murmurs +BS, mild epigastric tenderness but improved from Friday. Can feel liver edge Ext with good pulses. Assessment: []73 year old with cirrhosis and question of new diagnosis HCC. Admission earlier this month with biliary obstruction, now GIB. Plan: []1. GIB. Hgb stable today - Agree with PPI - Check Iron studies tomorrow 2. Biliary obstruction. Stable, no acute intervention. 3. Possible HCC, - Re-check AFP - 3 phase scan of liver today 4. Keep clinc follow up on Friday.
[2019-03-22] MEDS: Morphine 10 MG/ML VIAL (1 ml) IV PRN ×2 (14:23→21:08)
--- NOTE | 2019-03-22 17:15 | PN ---
Progress Note - Progress Note Date of Service: 03/22/19 Note: doing well, suzette diet, no bm, minimal abd pain 97.7, 111/55, 16 nad, +bs,soft, nt hgb 8.4 fro 6.9 PUD oral PPI bid x 4 wks, then q day; ?need for ASA, would like to hold indef Dudley Vera MD [facility], [phone]
[2019-03-22] MEDS: Pantoprazole TAB * 40 MG TAB PO SCH (21:07)
[2019-03-22] MEDS: Gabapentin CAP(*) 300 MG PO SCH (21:07)
[2019-03-23] MEDS: Levothyroxine TAB* 100 MCG TAB PO SCH (04:55)
[2019-03-23] MEDS: fentaNYL Patch Check Q Shift 1 NOTE FOLLOW UP SCH ×2 (07:17→20:05)
[2019-03-23] MEDS: Tiotropium CAP.INH* CAP.INH/18 MCG (USE ORDER SET !) INH SCH (07:41)
[2019-03-23] MEDS ORDERED: Iohexol 300* (CONTRAST) 10 ML SDV IV ONE (08:05)
[2019-03-23] MEDS: Diltiazem CD CAP* 120 MG PO SCH (10:06)
[2019-03-23 19:41] VITALS: BP 124/69
[2019-03-23] MEDS: Gabapentin CAP(*) 300 MG PO SCH (20:26)
[2019-03-23] MEDS: Pantoprazole TAB * 40 MG TAB PO SCH (21:24)
[2019-03-23] MEDS: fentaNYL PATCH 25 MCG/HR TRANSDERM SCH (22:33)
[2019-03-23] MEDS: fentaNYL PATCH 12 MCG/HR TRANSDERM SCH (22:33)
--- NOTE | 2019-03-24 13:31 | DS ---
CC: Dr. Atkinson; Dr. Toro; Dr. Garcia DISCHARGE SUMMARY: DATE OF ADMISSION: 03/20/19 DATE OF DISCHARGE: 03/23/19 PRIMARY DIAGNOSIS: Upper gastrointestinal hemorrhage due to gastric ulcers related to NSAID use. SECONDARY DIAGNOSES: 1. Autoimmune hepatitis. 2. Cirrhosis without varices. 3. Suspected hepatocellular carcinoma due to cirrhosis. 4. Chronic obstructive pulmonary disease. 5. Hypothyroidism. 6. Chronic back pain, on long-term opioid therapy. 7. History of lung cancer in 2016, status post left upper lobectomy. 8. History of bladder cancer in 2014, low grade, followed by Dr. Villar. 9. Sleep apnea, not on CPAP. 10. Osteoarthritis. 11. Recent cholestatic event, status post ERCP in [place] earlier in February. 12. Restless leg syndrome. MEDICATIONS ON DISCHARGE: 1. Azathioprine 50 mg p.o. q. day. 2. Vitamin D 400 units p.o. q. day. 3. Fentanyl patch 37 mcg topically every 3 days. 4. Levothyroxine 100 mcg p.o. q.a.m. 5. Multivitamin 1 tab p.o. q. day. 6. Oxycodone 5 mg p.o. t.i.d. p.r.n. 7. Spiriva Respimat inhaled once daily. 8. Acetaminophen 325 mg p.o. q.6 hours p.r.n. pain. 9. Albuterol nebulizer q.4 hours as needed. 10. Diltiazem CD 120 mg p.o. q. day. 11. Gabapentin 300 mg p.o. q.h.s. 12. Pantoprazole 40 mg p.o. q. day. HOSPITAL COURSE: Patient presented with dramatic upper GI hemorrhage after several days of epigastric pain. She was initially treated with 2 units of packed red cells and Protonix drip and octreotide drip because of suspicion of variceal bleed. The patient's aspirin was stopped. Her initial hemoglobin was 7.9 and this fell to 6.9 on the second day of hospitalization. She was monitored in the intensive care unit and ended up having 3 units of packed red cells total. Consultation was with Dr. Vera that occurred on 03/21/19 and the same day, he performed an upper endoscopy, which showed 2 clean based ulcers in the cardia of the stomach, which were not actively bleeding. No varices were seen. The patient's hemoglobin stabilized at around 8.4 with no further active bleeding. The patient was advised to stay off NSAIDs and take Protonix daily and have a followup with Dr. Atkinson, who is her primary ductfixing plumber, in 2 months. The patient has history of lung cancer and bladder cancer and was seen by Dr. Toor on 03/22/19 because of a concern on imaging that occurred earlier this month when she was admitted to [facility]. She had CBD stenosis on MRCP and she had an alpha fetoprotein of greater than 1100. An abdomen CT with three -phase intravenous contrast was performed on 03/23/19. This showed a cirrhotic liver and heterogenous pattern enhancement, predominantly of the left lobe with the absence of the left portal vein flow. There is preferential arterial enhancement of the left lobe of the liver, which made difficult to state whether the patient had hepatocellular carcinoma or not. Right nephrolithiasis and trace ascites were also seen. Because of concern of portal vein thrombosis , patient had a portal vein ultrasound late in the day on 03/23/19. This showed patency of the portal veins, but reversal of flow on the right portal vein and there is also hepatofugal flow identified at the location of the left portal vein. Sonographic findings are consistent with hepatic cirrhosis and chronic portal vein hypertension. The plan for investigating hepatocellular carcinoma is to see Dr. Toro as an outpatient. The patient is aware that there is still a concern with the liver, but the testing that we have available was completed. Dr. Toro will order a dedicated MRI of the liver. The patient was able to ambulate and tolerate food on the day of discharge. She had some restless leg syndrome, which responded to gabapentin. This has been resolved with repletion of her iron. CONDITION: Her condition is stable. STATUS: Inpatient. DIET: Soft solids, advance as tolerated. ACTIVITY: As tolerated. FOLLOWUP: Follow up with Dr. Garcia within 1 week, Dr. Toro within 1 week, Dr. Atkinson within 2 months. TIME SPENT: I spent greater than 45 minutes coordinating care with specialists , examining the patient, arranging testing and completing necessary discharge paperwork on the day of discharge. [id number]/[facility] #: [id number] MTDD
== END 2019-03-24 06:15 | disposition home or self-care (01) | DRG 378 ==
LOC: ED 17:25 → ICU 20:04 → MEDTELE 03-21 16:30
PROVIDERS: ADMIT Internal Medicine; ATTEND Internal Medicine
PROC: 05HM33Z Insertion of Infusion Device into Right Internal Jugular Vein, Percutaneous Approach (ICD-10-PCS; 2019-03-20)
PROC: 30233N1 Transfusion of Nonautologous Red Blood Cells into Peripheral Vein, Percutaneous Approach (ICD-10-PCS; 2019-03-20)
PROC: 0DB98ZX Excision of Duodenum, Via Natural or Artificial Opening Endoscopic, Diagnostic (ICD-10-PCS; principal; 2019-03-21)
PROC: 0DB68ZX Excision of Stomach, Via Natural or Artificial Opening Endoscopic, Diagnostic (ICD-10-PCS; 2019-03-21)
DX: K25.4 Chronic or unspecified gastric ulcer with hemorrhage (principal); T82.524A Displacement of infusion catheter, initial encounter; C78.7 Secondary malignant neoplasm of liver and intrahepatic bile duct; R18.8 Other ascites; K76.6 Portal hypertension; T39.395A Adverse effect of other nonsteroidal anti-inflammatory drugs [NSAID], initial encounter; M32.9 Systemic lupus erythematosus, unspecified; E03.9 Hypothyroidism, unspecified; G47.33 Obstructive sleep apnea (adult) (pediatric); J30.2 Other seasonal allergic rhinitis; K21.9 Gastro-esophageal reflux disease without esophagitis; K74.60 Unspecified cirrhosis of liver; M19.90 Unspecified osteoarthritis, unspecified site; E66.9 Obesity, unspecified; M81.0 Age-related osteoporosis without current pathological fracture; G89.29 Other chronic pain; F41.9 Anxiety disorder, unspecified; Z96.1 Presence of intraocular lens; F40.240 Claustrophobia; K75.4 Autoimmune hepatitis; I48.0 Paroxysmal atrial fibrillation; J44.9 Chronic obstructive pulmonary disease, unspecified; M54.9 Dorsalgia, unspecified; Y92.239 Unspecified place in hospital as the place of occurrence of the external cause; Y82.8 Other medical devices associated with adverse incidents; G25.81 Restless legs syndrome; N20.0 Calculus of kidney; H91.90 Unspecified hearing loss, unspecified ear; Y92.9 Unspecified place or not applicable; I25.2 Old myocardial infarction; Z87.891 Personal history of nicotine dependence; Z87.442 Personal history of urinary calculi; Z98.1 Arthrodesis status; Z98.42 Cataract extraction status, left eye; Z98.41 Cataract extraction status, right eye; Z68.32 Body mass index [BMI] 32.0-32.9, adult; Z90.2 Acquired absence of lung [part of]; Z85.118 Personal history of other malignant neoplasm of bronchus and lung; Z85.51 Personal history of malignant neoplasm of bladder; Z80.3 Family history of malignant neoplasm of breast
CPT/HCPCS: 36415; 71045; 74170; 80053; 85014; 85018; 85025; 85027; 85610; 85730; 86850; 86900; 86901; 86922; 86927; 87641; 88305; 93005; 93975; 94640; 99156; 99157; 99232; 99285; A9270-GY; J0696; J2250; J2270; J2354; J3010; P9040; Q9967

== ENCOUNTER 2019-09-20 13:14 | Inpatient (IN) | payer MEDICARE ==
[2019-09-20] MEDS ORDERED: Metoprolol Tartrate IV* 1 MG/ML 5 ML VIAL IV ONE (14:53)
[2019-09-20] MEDS ORDERED: Acetaminophen TAB* 325 MG PO PRN (14:53)
[2019-09-20] MEDS ORDERED: Albuterol 2.5 MG/3 ML NEB.SOL* (0.083%) INH PRN (14:53)
[2019-09-20] MEDS: Diltiazem CD CAP* 120 MG PO SCH (16:59)
[2019-09-20] MEDS: Enoxaparin(*) 100 MG/ML SYR SUBCUT SCH (18:53)
[2019-09-20] MEDS: fentaNYL PATCH 50 MCG/HR TRANSDERM SCH (18:55)
[2019-09-20] MEDS: fentaNYL Patch Check Q Shift 1 NOTE FOLLOW UP SCH (18:56)
[2019-09-20] MEDS: Cefepime 2 GM in Dextrose(*) 2 GM/50 ML BAG IV SCH (18:59)
[2019-09-20] MEDS: Albumin Human 25%* 25 GM/100 ML BTL IV SCH ×2 (20:33→23:18)
[2019-09-20] MEDS: ALBUMIN HUMAN 25% IV ONE ×2 (20:33→23:16)
[2019-09-20] MEDS: Gabapentin CAP(*) 300 MG PO SCH (20:38)
[2019-09-20] MEDS: Pantoprazole TAB * 40 MG TAB PO SCH (20:38)
[2019-09-20] MEDS: NS 0.9% 1000 ML** 1,000 ML IV SCH (23:47)
[2019-09-21] MEDS: Albumin Human 25%* 25 GM/100 ML BTL IV SCH ×3 (00:17→02:06)
[2019-09-21] MEDS: Levothyroxine TAB* 100 MCG TAB PO SCH (05:19)
[2019-09-21] MEDS: fentaNYL Patch Check Q Shift 1 NOTE FOLLOW UP SCH ×2 (06:44→18:52)
[2019-09-21 07:30] LABS: Hematocrit 23 % (35-47); Hemoglobin 7.8 g/dL (12.0-16.0); Mean Corpuscular HGB Conc 35 g/dL (31-36); Mean Corpuscular Hemoglobin 37 pg (27-31); Mean Corpuscular Volume 108 fL (80-97); Red Blood Count 2.11 10^6 /uL (3.70-4.87); Red Cell Distribution Width 20 % (10-15); White Blood Count 3.8 10^3/uL (3.5-10.8)
[2019-09-21 07:33] LABS: Albumin 3.2 g/dL (3.2-5.2); Albumin/Globulin Ratio 1.1 (1-3); BUN/Creatinine Ratio 44.7 (8-20); EGFR African American 41.2 (>60); Magnesium 2.2 mg/dL (1.9-2.7); Potassium 4.7 mmol/L (3.5-5.0); Total Protein 6.2 g/dL (6.4-8.9)
[2019-09-21] MEDS: Citalopram TAB* 10 MG PO SCH (08:08)
[2019-09-21] MEDS: Diltiazem CD CAP* 120 MG PO SCH (08:08)
[2019-09-21 08:15] LABS: TSH (Thyroid Stimulating Horm) 12.03 mcIU/mL (0.34-5.60)
[2019-09-21 08:42] LABS: Nucleated Red Blood Cells % 0.8
[2019-09-21 09:33] LABS: Polychromasia 1+
[2019-09-21 09:34] LABS: Mean Platelet Volume 8.1 fL (7.4-10.4); Platelet Count 74 10^3/uL (150-450)
[2019-09-21] MEDS: SPIRIVA Respimat* (tiotropium) 2.5 mcg/inh Inhaler INH SCH (09:34)
[2019-09-21 09:35] LABS: ABS Eosinophils 0.1 10^3/ul (0-0.6)
[2019-09-21] MEDS: NS 0.9% 1000 ML** 1,000 ML IV SCH (09:55)
--- NOTE | 2019-09-21 11:25 | PN ---
Progress Note - Progress Note Date of Service: 09/21/19 SOAP: Subjective: [Contreras is feeling better today. Abd pain has improved. She converted to a sinus rhythm. Still having intermittent diarrhea. Able to eat telugu toast this morning without nausea.] Objective: [ Vital Signs: Temp Pulse Resp BP Pulse Ox 97.3 F 73 18 100/48 91 09/21/19 07:15 09/21/19 07:15 09/21/19 07:34 09/21/19 07:15 09/21/19 07:15 Acetaminophen (Tylenol Tab*) 650 mg PO Q6H PRN PRN Reason: PAIN - MILD Albuterol (Ventolin 2.5 Mg/3 Ml Neb.Michaela*) 2.5 mg INH Q4H PRN PRN Reason: DYSPNEA Azathioprine (Imuran Tab(*)) 50 mg PO DAILY [facility] Last Admin: 09/21/19 09:34 Dose: 50 mg Citalopram Hydrobromide (Celexa Tab*) 10 mg PO DAILY [facility] Last Admin: 09/21/19 08:08 Dose: 10 mg Diltiazem HCl (Cardizem Cd Cap*) 120 mg PO DAILY [facility] Last Admin: 09/21/19 08:08 Dose: 120 mg Enoxaparin Sodium (Lovenox(*)) 85 mg SUBCUT Q24H [facility] Last Admin: 09/20/19 18:53 Dose: 85 mg Fentanyl (Duragesic Patch 50 Mcg/Hr*) 50 mcg TRANSDERM Q72HR [facility] Last Admin: 09/20/19 18:55 Dose: 50 mcg Gabapentin (Neurontin Cap(*)) 300 mg PO BEDTIME [facility] Last Admin: 09/20/19 20:38 Dose: 300 mg Cefepime HCl (Maxipime 2 Gm In Dextrose Duplex (*)) 2 gm in 50 mls @ 100 mls/ hr IV Q24H [facility] Last Admin: 09/20/19 18:59 Dose: 100 mls/hr Sodium Chloride (Ns 0.9% 1000 Ml) 1,000 mls @ 100 mls/hr IV PER RATE [facility] Last Admin: 09/21/19 09:55 Dose: 100 mls/hr Albumin Human (Albumin Human 25%*) 100 gm in 400 mls @ 200 mls/hr IV ONCE ONE Stop: 09/22/19 10:59 Levothyroxine Sodium (Synthroid Tab*) 100 mcg PO QAM@0600 [facility] Last Admin: 09/21/19 05:19 Dose: 100 mcg Oxycodone HCl (Roxycodone Tab*) 10 mg PO Q6HR PRN PRN Reason: PAIN - MODERATE Pantoprazole Sodium (Protonix Tab*) 40 mg PO 1999 [facility] Last Admin: 09/20/19 20:38 Dose: 40 mg Pharmacy Profile Note (Fentanyl Patch Check Q Shift) 1 note FOLLOW UP 0700, 1900 [facility] Last Admin: 09/21/19 06:44 Dose: 1 note Tiotropium [place] (Spiriva Respimat 2.5 Mcg) 2 puff INH DAILY [facility] Last Admin: 09/21/19 09:34 Dose: 2 puff Laboratory Results - last 24 hr 09/21/19 09/21/19 09/21/19 06:53 06:53 06:53 WBC 3.8 RBC 2.11 L Hgb 7.8 L Hct 23 L MCV 108 H MCH 37 H MCHC 35 RDW 20 H Plt Count 74 L D MPV 8.1 Neut % (Auto) Not Reportable Lymph % (Auto) Not Reportable [place] % (Auto) Not Reportable Eos % (Auto) Not Reportable Baso % (Auto) Not Reportable Absolute Neuts (auto) Not Reportable Absolute Lymphs (auto) Not Reportable Absolute Monos (auto) Not Reportable Absolute Eos (auto) Not Reportable Absolute Basos (auto) Not Reportable Absolute Nucleated RBC 0.0 Immature Gran % 1.0 Neutrophils % 79.0 Band Neutrophils % 1.0 Lymphocytes % 12.0 Monocytes % 5.0 Eosinophils % 3.0 Nucleated RBC % 0.8 Abs Neuts (Manual) 3.0 Abs Lymphs (Manual) 0.5 L Abs Monocytes (Manual) 0.2 Absolute Eos (Manual) 0.1 Abs Basophils (Manual) 0.0 Nucleated RBCs/100 WBC 2.0 H Normal RBC Morphology Not Reportable Polychromasia 1+ Anisocytosis 2+ Macrocytosis 2+ Target Cells 1+ Sodium 133 L Potassium 4.7 Chloride 102 Carbon Dioxide 21 L Anion Gap 10 BUN 67 H Creatinine 1.50 H Est GFR ( Amer) 41.2 Est GFR (Non-Af Amer) 34.0 BUN/Creatinine Ratio 44.7 H Glucose 90 Calcium 8.0 L Magnesium 2.2 Total Bilirubin 4.00 H AST 96 H ALT 40 Alkaline Phosphatase 120 H Total Protein 6.2 L Albumin 3.2 Globulin 3.0 D Albumin/Globulin Ratio 1.1 TSH 12.03 H Exam: Gen: chronically ill, but acutely well appearing 74 yo female in NAD HEENT: thrush, mildly dry MM] CV: RRR, no m/r/g Resp: CTA, no w/c/r Abd: distended, +ascites, soft nonTTP Ext: 2+ LE edema Assessment: [This is a 74 yo female with HCC who has not initiated therapy at this time who presented to the oncology clinic with severe lethargy, poor oral intake, increased ascites and abd pain. Cell counts on peritoneal fluid was indicative of SBP and fluid cultures are now growing gram negative bacilli. ] Plan: [1. SBP - gram neg bacilli growing from peritoneal fluid - blood cultures are pending - cont cefepime - requested ID consult - receive 1.5g/kg albumin at admission yesterday, repeat albumin at 1g/kg on day 3 (tomorrow) 2. HCC - plan to initiate sorafenib if performance status improves 3. Afib - now spontaneously converted to sinus - cont diltiazem 4. h/o portal vein thrombus - cont lovenox, renally adjusted dose to 1mg/kg q 24h, but will increase back to full dose when CrCl >30 5. Anemia - this seems to most likely be a sampling error, repeat CBC 6. FULL CODE Dispo: pt is interested in [facility], requested PT/OT consultation
[2019-09-21] MEDS: Nystatin SUSPENSION* 100000 UNITS/ML 5 ML UDC PO SCH ×3 (12:08→20:07)
[2019-09-21 12:37] LABS: Hematocrit 26 % (35-47); Hemoglobin 8.7 g/dL (12.0-16.0); Mean Corpuscular HGB Conc 34 g/dL (31-36); Mean Corpuscular Hemoglobin 37 pg (27-31); Mean Corpuscular Volume 109 fL (80-97); Red Blood Count 2.34 10^6 /uL (3.70-4.87); Red Cell Distribution Width 20 % (10-15); White Blood Count 3.2 10^3/uL (3.5-10.8)
[2019-09-21 14:32] LABS: Polychromasia 1+
[2019-09-21 14:33] LABS: Mean Platelet Volume 8.4 fL (7.4-10.4); Platelet Count 90 10^3/uL (150-450); Tear Drop Cells 1+
[2019-09-21 14:34] LABS: ABS Eosinophils 0.1 10^3/ul (0-0.6)
--- NOTE | 2019-09-21 14:38 | CONSULT ---
Subjective Date of Service: 09/21/19 Interval History: Ms. Dee is a 74 yo female with PMH significant for lupus anticoagulant, sleep apnea, lumbosacral spondylosis, Butch's thyroiditis, A fib, autoimmune hepatitis, chronic pain, connective tissue disorder, and hepatocellular cancer; who presented to the Oncology office with malaise, and ABD pain. She was found to have SBP. She presented to the hospital with a pressure injury to the sacrum, the patient reports that this has been present at home for awhile. She has not been treating the area with anything. Patient seen and examined at bedside. Family History: Unchanged from Admission Social History: Unchanged from Admission Past Medical History: Unchanged from Admission Review of Systems - Measurements Intake and Output: Intake and Output Last 24 Hours 09/19/19 09/20/19 09/21/19 09/22/19 06:59 06:59 06:59 06:59 Intake Total 1769 691 Output Total 125 0 Balance 1644 691 Weight 188 lb Intake: IV Fluids 549 451 Normal Saline 549 451 IVPB 500 Albumin 500 Oral 720 240 Output: Urine 125 0 Other: Estimated Void Medium Estimated Stool Amount Small - Review of Systems Constitutional Symptoms: Negative: Fever, Other - Chills Dermatology: Positive: Other - Open area to buttocks Objective Active Medications: Acetaminophen (Tylenol Tab*) 650 mg PO Q6H PRN Reason: PAIN - MILD Albuterol (Ventolin 2.5 Mg/3 Ml Neb.Michaela*) 2.5 mg INH Q4H PRN Reason: DYSPNEA Azathioprine (Imuran Tab(*)) 50 mg PO DAILY [facility] Citalopram Hydrobromide (Celexa Tab*) 10 mg PO DAILY [facility] Diltiazem HCl (Cardizem Cd Cap*) 120 mg PO DAILY [facility] Enoxaparin Sodium (Lovenox(*)) 85 mg SUBCUT Q24H [facility] Fentanyl (Duragesic Patch 50 Mcg/Hr*) 50 mcg TRANSDERM Q72HR [facility] Gabapentin (Neurontin Cap(*)) 300 mg PO BEDTIME [facility] Cefepime HCl (Maxipime 2 Gm In Dextrose Duplex (*)) 2 gm in 50 mls @ 100 mls/ hr IV Q24H [facility] Sodium Chloride (Ns 0.9% 1000 Ml) 1,000 mls @ 100 mls/hr IV PER RATE [facility] Albumin Human (Albumin Human 25%*) 100 gm in 400 mls @ 200 mls/hr IV ONCE ONE Stop: 09/22/19 10:59 Levothyroxine Sodium (Synthroid Tab*) 100 mcg PO QAM@0600 [facility] Nystatin (Nystatin Suspension*) 500,000 units PO QID [facility] Stop: 09/28/19 11:13 Oxycodone HCl (Roxycodone Tab*) 10 mg PO Q6HR PRN Reason: PAIN - MODERATE Pantoprazole Sodium (Protonix Tab*) 40 mg PO 1999 [facility] Pharmacy Profile Note (Fentanyl Patch Check Q Shift) 1 note FOLLOW UP 0700, 1900 [facility] Tiotropium [place] (Spiriva Respimat 2.5 Mcg) 2 puff INH DAILY [facility] Vital Signs 09/21/19 09/21/19 09/21/19 07:15 07:34 11:15 Temperature 97.3 F 97.7 F Pulse Rate 73 66 Respiratory 22 18 16 Rate Blood Pressure 100/48 90/38 (mmHg) O2 Sat by Pulse 91 91 Oximetry Oxygen Devices in Use Now: None Appearance: NAD, sitting up in a chair Ears/Nose/Mouth/Throat: Mucous Membranes Moist Respiratory: Symmetrical Chest Expansion and Respiratory Effort Skin: - - See skin note below Neurological: Alert and Oriented x 3 Result Diagrams: 09/21/19 12:25 09/21/19 06:53 Additional Lab and Data: Laboratory Tests 09/21/19 06:53 Total Protein 6.2 L Albumin 3.2 Skin Deviation Note - Skin Deviation Findings Buttocks - Superficial open area, measures 3 cm x 2 cm x 0.1 cm. The wound base is red granulation tissue. The surrounding area with nonblanchable erythema. The surrounding skin is intact. There is no drainage. Wound Problem/Plan Assessment: Ms. Dee is a 74 yo female with PMH significant for lupus anticoagulant, sleep apnea, lumbosacral spondylosis, Butch's thyroiditis, A fib, autoimmune hepatitis, chronic pain, connective tissue disorder, and hepatocellular cancer; who presented to the Oncology office with malaise, and ABD pain. She was found to have SBP. She presented to the hospital with a pressure injury to the sacrum. 1. Sacral pressure injury, stage 2. Recommend applying barrier cream to the area as needed. Frequent turning and repositioning. Use a lifting device to move in bed and chair to prevent shearing or friction injury to the skin. Will add a prealbumin to today's labs. 2. Hepatocellular cancer. Chemo is on hold due to decreased functional status. 3. SBP. Management per primary medicine team and ID. 4. Diet. Regular diet. 5. Code Status. Full Code Status, 6. Disposition. Inpatient, disposition per primary team. TIME SPENT: Time for this wound consultation was 20 minutes and 10 minutes was spent with the patient and family discussing past medical history; assessing, measuring, and photographing the wound. Is Patient a Wound Clinic Patient: No Attending: Vinita Shane
[2019-09-21] MEDS: Cefepime 2 GM in Dextrose(*) 2 GM/50 ML BAG IV SCH (17:13)
[2019-09-21] MEDS: Enoxaparin(*) 100 MG/ML SYR SUBCUT SCH (17:13)
[2019-09-21] MEDS: Gabapentin CAP(*) 300 MG PO SCH (20:08)
[2019-09-21] MEDS: Pantoprazole TAB * 40 MG TAB PO SCH (20:08)
[2019-09-21] MEDS: oxyCODONE TAB* 5 MG TAB PO PRN (20:15)
[2019-09-21 21:03] LABS: Prealbumin < 3 mg/dL (18-38)
--- NOTE | 2019-09-21 22:36 | CONS ---
CONSULTATION REPORT: DATE OF CONSULT: 09/21/19 REQUESTING PROVIDER: JUSTIN Kamara CONSULTING SERVICE: Infectious Disease. REASON FOR CONSULT: Bacterial peritonitis. IMPRESSION: 1. Bacterial peritonitis secondary to I suspect biliary disease in the setting of ascites due to cirrhosis. She has grown Klebsiella in her ascites fluid on the and on the , it is a common organism found in the gallbladder and she does have hepatocellular carcinoma with invasion into the gallbladder, which may be a portal of ESKAPE for the Klebsiella into her peritoneum. An underlying abscess is a consideration as well. 2. Hepatocellular carcinoma recently diagnosed, not on treatment at this point. 3. Left lung adenosquamous carcinoma, diagnosed in 2016. 4. Autoimmune hepatitis with cirrhosis. 5. Left portal vein thrombosis. RECOMMENDATIONS: Continue Ceftin, we will await the susceptibility report and we should obtain CT of the liver and gallbladder for abscess. HISTORY OF PRESENT ILLNESS: This is a 74-year-old woman with lung cancer and more recently hepatocellular carcinoma with involvement of the gallbladder. She has been admitted with abdominal pain and ascites. Most of the history is obtained from the review of the medical record as she cannot provide all those details currently. She does note a few days of abdominal pain as she from time to time has ascitic fluid removed. Culture results from the ascitic fluid on the grew Klebsiella and then from yesterday also growing Klebsiella pneumoniae. Her blood cultures yesterday were negative. She had been having malaise, chills, and fever at home she is not sure for how long, worsening abdominal pain. She had her paracentesis yesterday. She was admitted yesterday , started on IV antibiotics and has not had a fever here. Her belly pain is a little bit better, thinks the bloating is about at her baseline. She does have worsening leg swelling, no diarrhea. PAST MEDICAL HISTORY: 1. Lung cancer, adenosquamous carcinoma. 2. Hepatocellular carcinoma involving gallbladder. 3. Portal vein thrombosis. 4. Hypothyroidism. 5. Gastroesophageal reflux disease. 6. Atrial fibrillation. 7. Autoimmune hepatitis, complicated by cirrhosis. 8. History of gastric ulcer. 9. Hypertension. 10. Nephrolithiasis. 11. Spondylosis. 12. Lupus anticoagulant positive. 13. Sleep apnea. 14. History of spine surgery. 15. History of resection of bladder lesion. MEDICATIONS: 1. Tylenol. 2. Albuterol as needed. 3. Azathioprine. 4. Cefepime 2 g IV daily. 5. Citalopram. 6. Diltiazem. 7. Enoxaparin. 8. Fentanyl patch. 9. Gabapentin at bedtime. 10. Levothyroxine. 11. Nystatin suspension. 12. Oxycodone as needed. 13. Pantoprazole. 14. Spiriva. ALLERGIES: ASPIRIN. FAMILY HISTORY: Father had colon cancer. Grandmother had breast cancer. SOCIAL HISTORY: She lives by herself in [place]. She is . She is a past smoker. REVIEW OF SYSTEMS: All negative except as noted above to a 12-point review of systems. PHYSICAL EXAM: Vital Signs: Temperature 36.4, heart rate is 65, respiratory rate 20, blood pressure 95/50, oxygen saturation 97% on 2 L. In general, she is awake, not in distress. Neurologic: She is oriented x2, follows commands, moves all her extremities. She answers most questions appropriately. HEENT: There is no conjunctival hemorrhage. Oropharynx without lesions. Neck is supple without mass. Heart is regular rate and rhythm without murmurs, rubs, or gallops. Lungs have decreased breath sounds at the base bilaterally, loud wheeze or rale. Abdomen: Distended. There is no tenderness to palpation. There is no right upper quadrant tenderness. Skin: There is no rash or splinter hemorrhage. Musculoskeletal: There is no spinous tenderness to palpation. DIAGNOSTIC STUDIES/LAB DATA: Creatinine 1.5, ALT 96, bilirubin 4, white blood cell count 3, hemoglobin 8.7, platelets 90,000. Please see impression and recommendations outlined above. Thank you for asking me to see Ms. Dee in consultation. [id number]/[facility] #: [id number] KELLI
[2019-09-22] MEDS: NS 0.9% 1000 ML** 1,000 ML IV SCH ×2 (00:10→10:00)
[2019-09-22] MEDS: Levothyroxine TAB* 100 MCG TAB PO SCH (05:06)
[2019-09-22 05:38] LABS: Albumin 2.6 g/dL (3.2-5.2); Albumin/Globulin Ratio 0.8 (1-3); BUN/Creatinine Ratio 42.3 (8-20); Calcium 7.6 mg/dL (8.6-10.3); EGFR African American 39.4 (>60); EGFR Non-African American 32.5 (>60); Globulin 3.2 g/dL (2-4); Potassium 4.7 mmol/L (3.5-5.0); Total Bilirubin 4.2 mg/dL (0.2-1.0); Total Protein 5.8 g/dL (6.4-8.9)
[2019-09-22] MEDS: fentaNYL Patch Check Q Shift 1 NOTE FOLLOW UP SCH ×2 (06:44→18:54)
[2019-09-22 07:12] LABS: Hematocrit 26 % (35-47); Hemoglobin 8.7 g/dL (12.0-16.0); Mean Corpuscular HGB Conc 34 g/dL (31-36); Mean Corpuscular Hemoglobin 37 pg (27-31); Mean Corpuscular Volume 109 fL (80-97); Mean Platelet Volume 8.7 fL (7.4-10.4); Platelet Count 98 10^3/uL (150-450); Red Blood Count 2.34 10^6 /uL (3.70-4.87); Red Cell Distribution Width 20 % (10-15); White Blood Count 5.7 10^3/uL (3.5-10.8)
[2019-09-22 07:19] LABS: ABS Eosinophils 0.1 10^3/ul (0-0.6); Polychromasia 1+
[2019-09-22] MEDS: ALBUMIN HUMAN 25% IV SCH ×4 (09:58→14:31)
[2019-09-22] MEDS: Citalopram TAB* 10 MG PO SCH (09:59)
[2019-09-22] MEDS: Nystatin SUSPENSION* 100000 UNITS/ML 5 ML UDC PO SCH ×4 (09:59→20:09)
[2019-09-22] MEDS: Diltiazem CD CAP* 120 MG PO SCH (10:00)
[2019-09-22] MEDS: SPIRIVA Respimat* (tiotropium) 2.5 mcg/inh Inhaler INH SCH (10:23)
--- NOTE | 2019-09-22 10:58 | PN ---
Progress Note - Progress Note Date of Service: 09/22/19 SOAP: Subjective: CC: Bacterial Peritonitis HPI: Ms. Dee is a 74 yo female with PMH significant for hepatocellular carcinoma , lung cancer, autoimmune hepatitis with cirrhosis, left portal vein thrombus, and hypothyroidism; who presented to the hospital for bacterial peritonitis. Denies fever, chills, nausea, ABD pain, vomiting, or diarrhea. She feels like he belly is about the same today and not larger. She reports shortness of breath today and [facility] staff have placed her on O2. Objective: Vital Signs - 8 hr 09/22/19 09/22/19 09:47 10:40 Temperature 97.3 F 97.6 F Pulse Rate 68 66 Respiratory 18 16 Rate Blood Pressure 92/38 97/47 (mmHg) O2 Sat by Pulse 91 97 Oximetry Physical Exam: General: NAD, sitting up in a chair Neurological: Alert and Oriented HEENT: Moist MM, no thrush Cardiovascular: Heart rate regular. 2+ pitting bilateral LE edema Respiratory: Lung sounds clear Abdominal: Bowel sounds present; ABD large, soft, distended, + fluid wave Skin: No rash Laboratory Results - last 24 hr 09/21/19 09/21/19 09/21/19 06:53 06:53 12:25 WBC 3.2 L RBC 2.34 L Hgb 8.7 L Hct 26 L MCV 109 H MCH 37 H MCHC 34 RDW 20 H Plt Count 90 L MPV 8.4 Neut % (Auto) Not Reportable Lymph % (Auto) Not Reportable [place] % (Auto) Not Reportable Eos % (Auto) Not Reportable Baso % (Auto) Not Reportable Absolute Neuts (auto) Not Reportable Absolute Lymphs (auto) Not Reportable Absolute Monos (auto) Not Reportable Absolute Eos (auto) Not Reportable Absolute Basos (auto) Not Reportable Absolute Nucleated RBC Not Reportable Immature Gran % 2.0 Neutrophils % 78.0 Band Neutrophils % 2.0 Lymphocytes % 11.0 Reactive Lymphs % 1.0 Monocytes % 3.0 Eosinophils % 4.0 Basophils % 1.0 Nucleated RBC % Not Reportable Abs Neuts (Manual) 2.6 Abs Lymphs (Manual) 0.4 L Abs Monocytes (Manual) 0.1 Absolute Eos (Manual) 0.1 Abs Basophils (Manual) 0.0 Nucleated RBCs/100 WBC 2.0 H Normal RBC Morphology Not Reportable Polychromasia 1+ Basophilic Stippling 1+ Anisocytosis 2+ Target Cells 1+ Tear Drop Cells 1+ Prealbumin < 3 L TSH 12.03 H 09/22/19 09/22/19 05:07 05:07 WBC 5.7 RBC 2.34 L Hgb 8.7 L Hct 26 L MCV 109 H MCH 37 H MCHC 34 RDW 20 H Plt Count 98 L MPV 8.7 Neutrophils % 93.0 Lymphocytes % 6.0 Eosinophils % 1.0 Abs Neuts (Manual) 5.3 Abs Lymphs (Manual) 0.3 L Absolute Eos (Manual) 0.1 Normal RBC Morphology Normal Polychromasia 1+ Sodium 133 L Potassium 4.7 Chloride 104 Carbon Dioxide 20 L Anion Gap 9 BUN 66 H Creatinine 1.56 H Est GFR ( Amer) 39.4 Est GFR (Non-Af Amer) 32.5 BUN/Creatinine Ratio 42.3 H Glucose 90 Calcium 7.6 L Total Bilirubin 4.20 H AST 101 H ALT 44 Alkaline Phosphatase 124 H Total Protein 5.8 L Albumin 2.6 L Globulin 3.2 Albumin/Globulin Ratio 0.8 L Microbiology 09/21/19 14:42 Stool Occult Blood (JOSSUE) - Final Stool Assessment: 1. Bacterial peritonitis. Peritoneal fluid with klebsiella. Blood cultures with no growth to date. Afebrile and no leukocytosis. 2. Hepatocellular cancer. Has not started treatment, plan for treatment to be initiated once her functional status improves. 3. Left lung cancer. 4. Autoimmune hepatitis with cirrhosis. 5. Left portal vein thrombosis. Plan: Continue cefepime. Recommend obtaining a CT ABD/Pelvis to eval for GB pathology vs abscess (ordered). Further recommendations will be based on CT results, she will likely need an extended course of IV ABX, followed by suppressive ABX.
--- NOTE | 2019-09-22 11:53 | PN ---
Progress Note - Progress Note Date of Service: 09/22/19 SOAP: Subjective: [Placed on 2L supp O2 yesterday afternoon for O2 sat of 91% and some c/o SOB getting to the commode. She is feeling ok this morning. No abd pain. Appetite ok. LUE midline placed yesterday and confirmed appropriate placement, noted L arm edema today.] Objective: [ Vital Signs: Temp Pulse Resp BP Pulse Ox 97.5 F 66 16 96/58 97 09/22/19 11:25 09/22/19 11:25 09/22/19 11:25 09/22/19 11:25 09/22/19 11:25 Acetaminophen (Tylenol Tab*) 650 mg PO Q6H PRN PRN Reason: PAIN - MILD Albuterol (Ventolin 2.5 Mg/3 Ml Neb.Michaela*) 2.5 mg INH Q4H PRN PRN Reason: DYSPNEA Azathioprine (Imuran Tab(*)) 50 mg PO DAILY [facility] Last Admin: 09/22/19 09:59 Dose: 50 mg Citalopram Hydrobromide (Celexa Tab*) 10 mg PO DAILY [facility] Last Admin: 09/22/19 09:59 Dose: 10 mg Diltiazem HCl (Cardizem Cd Cap*) 120 mg PO DAILY [facility] Last Admin: 09/22/19 10:00 Dose: 120 mg Enoxaparin Sodium (Lovenox(*)) 85 mg SUBCUT Q24H [facility] Last Admin: 09/21/19 17:13 Dose: 85 mg Fentanyl (Duragesic Patch 50 Mcg/Hr*) 50 mcg TRANSDERM Q72HR [facility] Last Admin: 09/20/19 18:55 Dose: 50 mcg Gabapentin (Neurontin Cap(*)) 300 mg PO BEDTIME [facility] Last Admin: 09/21/19 20:08 Dose: 300 mg Cefepime HCl (Maxipime 2 Gm In Dextrose Duplex (*)) 2 gm in 50 mls @ 100 mls/ hr IV Q24H [facility] Last Admin: 09/21/19 17:13 Dose: 100 mls/hr Sodium Chloride (Ns 0.9% 1000 Ml) 1,000 mls @ 100 mls/hr IV PER RATE [facility] Last Admin: 09/22/19 10:00 Dose: 100 mls/hr Levothyroxine Sodium (Synthroid Tab*) 100 mcg PO QAM@0600 [facility] Last Admin: 09/22/19 05:06 Dose: 100 mcg Nystatin (Nystatin Suspension*) 500,000 units PO QID [facility] Stop: 09/28/19 11:13 Last Admin: 09/22/19 09:59 Dose: 500,000 units Oxycodone HCl (Roxycodone Tab*) 10 mg PO Q6HR PRN PRN Reason: PAIN - MODERATE Last Admin: 09/21/19 20:15 Dose: 10 mg Pantoprazole Sodium (Protonix Tab*) 40 mg PO 1999 [facility] Last Admin: 09/21/19 20:08 Dose: 40 mg Pharmacy Profile Note (Fentanyl Patch Check Q Shift) 1 note FOLLOW UP 0700, 1900 [facility] Last Admin: 09/22/19 06:44 Dose: 1 note Tiotropium [place] (Spiriva Respimat 2.5 Mcg) 2 puff INH DAILY [facility] Last Admin: 09/22/19 10:23 Dose: 2 puff Laboratory Results - last 24 hr 09/21/19 09/21/19 09/21/19 06:53 06:53 12:25 WBC 3.2 L RBC 2.34 L Hgb 8.7 L Hct 26 L MCV 109 H MCH 37 H MCHC 34 RDW 20 H Plt Count 90 L MPV 8.4 Neut % (Auto) Not Reportable Lymph % (Auto) Not Reportable [place] % (Auto) Not Reportable Eos % (Auto) Not Reportable Baso % (Auto) Not Reportable Absolute Neuts (auto) Not Reportable Absolute Lymphs (auto) Not Reportable Absolute Monos (auto) Not Reportable Absolute Eos (auto) Not Reportable Absolute Basos (auto) Not Reportable Absolute Nucleated RBC Not Reportable Immature Gran % 2.0 Neutrophils % 78.0 Band Neutrophils % 2.0 Lymphocytes % 11.0 Reactive Lymphs % 1.0 Monocytes % 3.0 Eosinophils % 4.0 Basophils % 1.0 Nucleated RBC % Not Reportable Abs Neuts (Manual) 2.6 Abs Lymphs (Manual) 0.4 L Abs Monocytes (Manual) 0.1 Absolute Eos (Manual) 0.1 Abs Basophils (Manual) 0.0 Nucleated RBCs/100 WBC 2.0 H Normal RBC Morphology Not Reportable Polychromasia 1+ Basophilic Stippling 1+ Anisocytosis 2+ Target Cells 1+ Tear Drop Cells 1+ Hem Pathologist Commnt Sodium Potassium Chloride Carbon Dioxide Anion Gap BUN Creatinine Est GFR ( Amer) Est GFR (Non-Af Amer) BUN/Creatinine Ratio Glucose Calcium Total Bilirubin AST ALT Alkaline Phosphatase Total Protein Albumin Globulin Albumin/Globulin Ratio Prealbumin < 3 L TSH 12.03 H 09/22/19 09/22/19 05:07 05:07 WBC 5.7 RBC 2.34 L Hgb 8.7 L Hct 26 L MCV 109 H MCH 37 H MCHC 34 RDW 20 H Plt Count 98 L MPV 8.7 Neut % (Auto) Lymph % (Auto) [place] % (Auto) Eos % (Auto) Baso % (Auto) Absolute Neuts (auto) Absolute Lymphs (auto) Absolute Monos (auto) Absolute Eos (auto) Absolute Basos (auto) Absolute Nucleated RBC Immature Gran % Neutrophils % 93.0 Band Neutrophils % Lymphocytes % 6.0 Reactive Lymphs % Monocytes % Eosinophils % 1.0 Basophils % Nucleated RBC % Abs Neuts (Manual) 5.3 Abs Lymphs (Manual) 0.3 L Abs Monocytes (Manual) Absolute Eos (Manual) 0.1 Abs Basophils (Manual) Nucleated RBCs/100 WBC Normal RBC Morphology Normal Polychromasia 1+ Basophilic Stippling Anisocytosis Target Cells Tear Drop Cells Hem Pathologist Commnt Sodium 133 L Potassium 4.7 Chloride 104 Carbon Dioxide 20 L Anion Gap 9 BUN 66 H Creatinine 1.56 H Est GFR ( Amer) 39.4 Est GFR (Non-Af Amer) 32.5 BUN/Creatinine Ratio 42.3 H Glucose 90 Calcium 7.6 L Total Bilirubin 4.20 H AST 101 H ALT 44 Alkaline Phosphatase 124 H Total Protein 5.8 L Albumin 2.6 L Globulin 3.2 Albumin/Globulin Ratio 0.8 L Prealbumin TSH Exam: Gen: chronically ill appearing 74 yo female in NAD HEENT: thrush, mildly dry MM] CV: RRR, no m/r/g Resp: CTA, no w/c/r Abd: distended, +ascites, soft nonTTP Ext: 2+ LE edema, 1+ LUE edema with some TTP Assessment: [This is a 74 yo female with HCC who has not initiated therapy at this time who presented to the oncology clinic with severe lethargy, poor oral intake, increased ascites and abd pain. Cell counts on peritoneal fluid was indicative of SBP and fluid cultures grew Klebsiella. ] Plan: [1. SBP - Klebsiella growing from peritoneal fluid, sensitive to cephalosporins - blood cultures are negative - cont cefepime - ID consult appreciated, CT abd/pelvis ordered for today to eval for abscess - received 1.5g/kg albumin at admission yesterday, repeat albumin at 1g/kg on day 3 (today) 2. HCC - plan to initiate sorafenib if performance status improves 3. Afib - now spontaneously converted to sinus - cont diltiazem 4. h/o portal vein thrombus - cont lovenox, renally adjusted dose to 1mg/kg q 24h, but will increase back to full dose when CrCl >30 5. Anemia - somewhat dilutional - stool heme occult negative 6. Hypoxia - may be due to fluid overload, she is certainly anasarcic - initiate IV lasix and monitor renal function carefully, but diuresis may be successful now that she has received albumin 7. LUE - check doppler US to eval for DVT, this would be unlikely as she is anticoagulated with full dose Lovenox 8. FULL CODE Dispo: pt is interested in [facility], referrals have been sent - may require an extended period of IV abx depending on CT results
[2019-09-22] MEDS: Enoxaparin(*) 100 MG/ML SYR SUBCUT SCH (17:15)
[2019-09-22] MEDS: Cefepime 2 GM in Dextrose(*) 2 GM/50 ML BAG IV SCH (17:15)
[2019-09-22] MEDS: Gabapentin CAP(*) 300 MG PO SCH (20:07)
[2019-09-22] MEDS: Pantoprazole TAB * 40 MG TAB PO SCH (20:09)
[2019-09-23 03:11] LABS: Urine Appearance Cloudy; Urine Bacteria Absent (Absent); Urine Bilirubin Negative (Negative); Urine Blood 1+ (Negative); Urine Color Amber; Urine Glucose Negative (Negative); Urine Ketones Trace (Negative); Urine Nitrite Negative (Negative); Urine Protein Negative (Negative); Urine Red Blood Cell 2+(6-10/hpf) (Absent); Urine Specific Gravity 1.016 (1.010-1.030); Urine Squamous Epithelial Cell Present (Absent); Urine Transitional Epithelial Present (Absent); Urine Urobilinogen Negative (Negative); Urine White Blood Cell 3+(>20/hpf) (Absent)
[2019-09-23] MEDS: Levothyroxine TAB* 100 MCG TAB PO SCH (05:16)
[2019-09-23] MEDS: fentaNYL Patch Check Q Shift 1 NOTE FOLLOW UP SCH ×2 (06:56→18:51)
[2019-09-23] MEDS ORDERED: fentaNYL PATCH 37.5 MCG/HR(NF) PATCH.TD72 TRANSDERM SCH (09:00)
[2019-09-23] MEDS: Diltiazem CD CAP* 120 MG PO SCH (09:27)
[2019-09-23] MEDS: Citalopram TAB* 10 MG PO SCH (09:27)
[2019-09-23] MEDS: Nystatin SUSPENSION* 100000 UNITS/ML 5 ML UDC PO SCH ×4 (09:27→20:47)
[2019-09-23] MEDS: SPIRIVA Respimat* (tiotropium) 2.5 mcg/inh Inhaler INH SCH (09:27)
[2019-09-23] MEDS: fentaNYL PATCH 50 MCG/HR TRANSDERM SCH (09:28)
[2019-09-23] MEDS: NS 0.9% 1000 ML** 1,000 ML IV SCH (09:35)
[2019-09-23] MEDS ORDERED: Furosemide IV* 10 MG/ML 2 ML VIAL (20 MG) IV SLOW PU ONE (10:07)
--- NOTE | 2019-09-23 10:09 | PN ---
Progress Note - Progress Note Date of Service: 09/23/19 SOAP: Subjective: CC: peritonitis HPI: 74 year old woman with lung and liver (HCC) cancer admitted with peritonitis. Had been on antibiotics when Klebsiella grew from a GB mass biopsy that also showed HCC. She has no abd pain today, her appetite is improving and has no fever, rash, or diarrhea. Objective: Vital Signs Temp 36.2 C 09/23/19 07:15 Pulse 70 09/23/19 07:15 Resp 16 09/23/19 09:28 BP 106/44 09/23/19 07:15 Pulse Ox 93 09/23/19 07:15 Intake & Output 09/22/19 09/23/19 09/23/19 18:59 06:59 18:59 Intake Total 636 1137 Output Total 100 0 Balance 536 1137 Intake: IV Fluids 1027 Normal Saline 1027 IVPB 376 50 Albumin 376 Cefipime 50 Oral 260 60 Output: Urine 100 0 Other: Estimated Void Small # Voids 1 1 Gen:awake, no distress HEENT: no thrush Heart:Regular, no murmur Lungs:Decr breath sounds at bases Abd:+BS firm, distended, non tender Skin: no rash MSK: LUE midline Laboratory Results - last 24 hr 09/23/19 00:00 Urine Color Joanna Urine Appearance Cloudy Urine pH 5.0 Ur Specific [place] 1.016 Urine Protein Negative Urine Ketones Trace A Urine Blood 1+ A Urine Nitrate Negative Urine Bilirubin Negative Urine Urobilinogen Negative Ur Leukocyte Esterase Trace A Urine WBC (Auto) 3+(>20/hpf) A Urine RBC (Auto) 2+(6-10/hpf) A Ur Squamous Epith Cells Present A Ur Transition Epith Cell Present A Urine Bacteria Absent Hyaline Casts Present A Urine Glucose Negative Assessment: 1. Peritonitis due to Klebsiella 2. Lung cancer 3. HCC with GB involvment 4. Autoimmune hepatitis with cirrhosis and ascites 5. CKD Plan: 1. change antibiotics to ceftriaxone 1 gm daily to finish 2 weeks of IV antibiotics followed by augmentin 500 mg twice daily for 1 month Discussed with oncology team
[2019-09-23 10:31] LABS: Hematocrit 26 % (35-47); Hemoglobin 8.5 g/dL (12.0-16.0); Mean Corpuscular HGB Conc 33 g/dL (31-36); Mean Corpuscular Hemoglobin 37 pg (27-31); Mean Corpuscular Volume 113 fL (80-97); Mean Platelet Volume 9.2 fL (7.4-10.4); Platelet Count 127 10^3/uL (150-450); Red Blood Count 2.31 10^6 /uL (3.70-4.87); Red Cell Distribution Width 20 % (10-15); White Blood Count 7.4 10^3/uL (3.5-10.8)
--- NOTE | 2019-09-23 10:31 | PN ---
Progress Note - Progress Note Date of Service: 09/23/19 SOAP: Subjective: [Contreras is doing relatively well this morning. Appetite ok. No n/v. Diarrhea is slowing.] Objective: [ Vital Signs: Temp Pulse Resp BP Pulse Ox 97.2 F 70 16 106/44 93 09/23/19 07:15 09/23/19 07:15 09/23/19 09:28 09/23/19 07:15 09/23/19 07:15 Laboratory Results - last 24 hr 09/23/19 00:00 Urine Color Joanna Urine Appearance Cloudy Urine pH 5.0 Ur Specific [place] 1.016 Urine Protein Negative Urine Ketones Trace A Urine Blood 1+ A Urine Nitrate Negative Urine Bilirubin Negative Urine Urobilinogen Negative Ur Leukocyte Esterase Trace A Urine WBC (Auto) 3+(>20/hpf) A Urine RBC (Auto) 2+(6-10/hpf) A Ur Squamous Epith Cells Present A Ur Transition Epith Cell Present A Urine Bacteria Absent Hyaline Casts Present A Urine Glucose Negative Acetaminophen (Tylenol Tab*) 650 mg PO Q6H PRN PRN Reason: PAIN - MILD Albuterol (Ventolin 2.5 Mg/3 Ml Neb.Michaela*) 2.5 mg INH Q4H PRN PRN Reason: DYSPNEA Azathioprine (Imuran Tab(*)) 50 mg PO DAILY [facility] Last Admin: 09/23/19 09:27 Dose: 50 mg Citalopram Hydrobromide (Celexa Tab*) 10 mg PO DAILY [facility] Last Admin: 09/23/19 09:27 Dose: 10 mg Diltiazem HCl (Cardizem Cd Cap*) 120 mg PO DAILY [facility] Last Admin: 09/23/19 09:27 Dose: 120 mg Enoxaparin Sodium (Lovenox(*)) 85 mg SUBCUT Q24H [facility] Last Admin: 09/22/19 17:15 Dose: 85 mg Fentanyl (Duragesic Patch 50 Mcg/Hr*) 50 mcg TRANSDERM Q72HR [facility] Last Admin: 09/23/19 09:28 Dose: 50 mcg Gabapentin (Neurontin Cap(*)) 300 mg PO BEDTIME [facility] Last Admin: 09/22/19 20:07 Dose: 300 mg Cefepime HCl (Maxipime 2 Gm In Dextrose Duplex (*)) 2 gm in 50 mls @ 100 mls/ hr IV Q24H [facility] Last Admin: 09/22/19 17:15 Dose: 100 mls/hr Sodium Chloride (Ns 0.9% 1000 Ml) 1,000 mls @ 100 mls/hr IV PER RATE [facility] Last Admin: 09/23/19 09:35 Dose: 100 mls/hr Levothyroxine Sodium (Synthroid Tab*) 100 mcg PO QAM@0600 [facility] Last Admin: 09/23/19 05:16 Dose: 100 mcg Nystatin (Nystatin Suspension*) 500,000 units PO QID [facility] Stop: 09/28/19 11:13 Last Admin: 09/23/19 09:27 Dose: 500,000 units Oxycodone HCl (Roxycodone Tab*) 10 mg PO Q6HR PRN PRN Reason: PAIN - MODERATE Last Admin: 09/21/19 20:15 Dose: 10 mg Pantoprazole Sodium (Protonix Tab*) 40 mg PO 2000 [facility] Last Admin: 09/22/19 20:09 Dose: 40 mg Pharmacy Profile Note (Fentanyl Patch Check Q Shift) 1 note FOLLOW UP 0700, 1900 [facility] Last Admin: 09/23/19 06:56 Dose: 1 note Tiotropium [place] (Spiriva Respimat 2.5 Mcg) 2 puff INH DAILY [facility] Last Admin: 09/23/19 09:27 Dose: 2 puff Exam: Gen: chronically ill appearing 74 yo female in NAD, acutely looks well HEENT: improving thrush] CV: RRR, 2/6 murmur Resp: CTA, no w/c/r Abd: distended, +ascites, soft nonTTP Ext: 2+ LE edema, 1+ LUE edema with some TTP, midline placed Assessment: [This is a 74 yo female with HCC who has not initiated therapy at this time who presented to the oncology clinic with severe lethargy, poor oral intake, increased ascites and abd pain. Cell counts on peritoneal fluid was indicative of SBP and fluid cultures grew Klebsiella. ] Plan: [1. Peritonitis - Klebsiella growing from peritoneal fluid, sensitive to cephalosporins - blood cultures are negative - cont cefepime during hospital stay, convert to 1g ceftriaxone daily at discharge for a total of 2 weeks followed by an additional 4 weeks of Augmentin per ID recommendations - it appears that Klebsiella grew on gallbladder biopsy from 09/03 which may have been the inciting factor for this event of peritonitis - she was treated with 10d of cefepime at the time that culture was resulted - no abscess noted on CT A/P - received albumin on days 1 and 3 2. HCC - plan to initiate sorafenib if performance status improves 3. Afib - now spontaneously converted to sinus - cont diltiazem 4. h/o portal vein thrombus - cont lovenox, renally adjusted dose to 1mg/kg q 24h, but will increase back to full dose when CrCl >30 5. Anemia - somewhat dilutional - stool heme occult negative 6. Hypoxia - may be due to fluid overload, she is certainly anasarcic - initiate IV lasix and monitor renal function carefully, but diuresis may be successful now that she has received albumin 7. LUE edema - no DVT - switch midline to PICC to ensure proper placement 8. FULL CODE Dispo: pt is interested in [facility], referrals have been sent - clinically improving and may be ready for dc by the end of the week
[2019-09-23 10:38] LABS: Albumin 3.2 g/dL (3.2-5.2); Albumin/Globulin Ratio 1.1 (1-3); BUN/Creatinine Ratio 42.7 (8-20); Calcium 8.2 mg/dL (8.6-10.3); EGFR African American 37.2 (>60); EGFR Non-African American 30.7 (>60); Globulin 2.8 g/dL (2-4); Potassium 4.7 mmol/L (3.5-5.0); Total Bilirubin 4.1 mg/dL (0.2-1.0)
[2019-09-23] MEDS: Cefepime 2 GM in Dextrose(*) 2 GM/50 ML BAG IV SCH (17:34)
[2019-09-23] MEDS: Enoxaparin(*) 100 MG/ML SYR SUBCUT SCH (17:35)
[2019-09-23] MEDS: Gabapentin CAP(*) 300 MG PO SCH (20:46)
[2019-09-23] MEDS: Pantoprazole TAB * 40 MG TAB PO SCH (20:47)
[2019-09-24] MEDS: NS 0.9% 1000 ML** 1,000 ML IV SCH (04:27)
[2019-09-24] MEDS: Levothyroxine TAB* 100 MCG TAB PO SCH (06:15)
[2019-09-24] MEDS: fentaNYL Patch Check Q Shift 1 NOTE FOLLOW UP SCH ×2 (06:47→19:45)
[2019-09-24] MEDS: Diltiazem CD CAP* 120 MG PO SCH (09:07)
[2019-09-24] MEDS: Citalopram TAB* 10 MG PO SCH (09:07)
[2019-09-24] MEDS: Nystatin SUSPENSION* 100000 UNITS/ML 5 ML UDC PO SCH ×4 (09:07→20:55)
--- NOTE | 2019-09-24 09:50 | PN ---
Progress Note - Progress Note Date of Service: 09/24/19 SOAP: Subjective: []Still very ill. Not eating much at all, drinking water. Very weak, going to halfway. Acetaminophen (Tylenol Tab*) 650 mg PO Q6H PRN PRN Reason: PAIN - MILD Albuterol (Ventolin 2.5 Mg/3 Ml Neb.Michaela*) 2.5 mg INH Q4H PRN PRN Reason: DYSPNEA Azathioprine (Imuran Tab(*)) 50 mg PO DAILY [facility] Last Admin: 09/24/19 09:07 Dose: 50 mg Citalopram Hydrobromide (Celexa Tab*) 10 mg PO DAILY [facility] Last Admin: 09/24/19 09:07 Dose: 10 mg Diltiazem HCl (Cardizem Cd Cap*) 120 mg PO DAILY [facility] Last Admin: 09/24/19 09:07 Dose: 120 mg Enoxaparin Sodium (Lovenox(*)) 85 mg SUBCUT Q24H [facility] Last Admin: 09/23/19 17:35 Dose: 85 mg Fentanyl (Duragesic Patch 50 Mcg/Hr*) 50 mcg TRANSDERM Q72HR [facility] Last Admin: 09/23/19 09:28 Dose: 50 mcg Gabapentin (Neurontin Cap(*)) 300 mg PO BEDTIME [facility] Last Admin: 09/23/19 20:46 Dose: 300 mg Cefepime HCl (Maxipime 2 Gm In Dextrose Duplex (*)) 2 gm in 50 mls @ 100 mls/ hr IV Q24H [facility] Last Admin: 09/23/19 17:34 Dose: 100 mls/hr Sodium Chloride (Ns 0.9% 1000 Ml) 1,000 mls @ 100 mls/hr IV PER RATE [facility] Last Admin: 09/24/19 04:27 Dose: 100 mls/hr Levothyroxine Sodium (Synthroid Tab*) 100 mcg PO QAM@0600 [facility] Last Admin: 09/24/19 06:15 Dose: 100 mcg Nystatin (Nystatin Suspension*) 500,000 units PO QID [facility] Stop: 09/28/19 11:13 Last Admin: 09/24/19 09:07 Dose: 500,000 units Oxycodone HCl (Roxycodone Tab*) 10 mg PO Q6HR PRN PRN Reason: PAIN - MODERATE Last Admin: 09/21/19 20:15 Dose: 10 mg Pantoprazole Sodium (Protonix Tab*) 40 mg PO 1999 [facility] Last Admin: 09/23/19 20:47 Dose: 40 mg Pharmacy Profile Note (Fentanyl Patch Check Q Shift) 1 note FOLLOW UP 0700, 1900 [facility] Last Admin: 09/24/19 06:47 Dose: 1 note Tiotropium [place] (Spiriva Respimat 2.5 Mcg) 2 puff INH DAILY [facility] Last Admin: 09/23/19 09:27 Dose: 2 puff Objective: [] Vital Signs Temp Pulse Resp BP Pulse Ox 97.9 F 68 16 100/38 95 09/24/19 08:26 09/24/19 08:26 09/24/19 08:26 09/24/19 08:26 09/24/19 08:26 HEENT: pale, dry mouth CTA RRR s1s2, tachy +BS, mild tenderness, distended +2 ALISA Assessment: []End stage HCC now s/p peritonitis recovering on antibiotics. Remains very weak and ECOG PS of 2. Discussed case and prognosis. There is no role for therapy, will only make her more ill. Goal is QOL and time with grandchildren. Discussed with patient and her daughter, Yi Alfonso. Plan: []
--- NOTE | 2019-09-24 09:54 | PN ---
Progress Note - Progress Note Date of Service: 09/24/19 SOAP: Subjective: []Still very ill. Not eating much at all, drinking water. Very weak, [facility] Acetaminophen (Tylenol Tab*) 650 mg PO Q6H PRN PRN Reason: PAIN - MILD Albuterol (Ventolin 2.5 Mg/3 Ml Neb.Michaela*) 2.5 mg INH Q4H PRN PRN Reason: DYSPNEA Azathioprine (Imuran Tab(*)) 50 mg PO DAILY [facility] Last Admin: 09/24/19 09:07 Dose: 50 mg Citalopram Hydrobromide (Celexa Tab*) 10 mg PO DAILY [facility] Last Admin: 09/24/19 09:07 Dose: 10 mg Diltiazem HCl (Cardizem Cd Cap*) 120 mg PO DAILY [facility] Last Admin: 09/24/19 09:07 Dose: 120 mg Enoxaparin Sodium (Lovenox(*)) 85 mg SUBCUT Q24H [facility] Last Admin: 09/23/19 17:35 Dose: 85 mg Fentanyl (Duragesic Patch 50 Mcg/Hr*) 50 mcg TRANSDERM Q72HR [facility] Last Admin: 09/23/19 09:28 Dose: 50 mcg Gabapentin (Neurontin Cap(*)) 300 mg PO BEDTIME [facility] Last Admin: 09/23/19 20:46 Dose: 300 mg Cefepime HCl (Maxipime 2 Gm In Dextrose Duplex (*)) 2 gm in 50 mls @ 100 mls/ hr IV Q24H [facility] Last Admin: 09/23/19 17:34 Dose: 100 mls/hr Sodium Chloride (Ns 0.9% 1000 Ml) 1,000 mls @ 100 mls/hr IV PER RATE [facility] Last Admin: 09/24/19 04:27 Dose: 100 mls/hr Levothyroxine Sodium (Synthroid Tab*) 100 mcg PO QAM@0600 [facility] Last Admin: 09/24/19 06:15 Dose: 100 mcg Nystatin (Nystatin Suspension*) 500,000 units PO QID [facility] Stop: 09/28/19 11:13 Last Admin: 09/24/19 09:07 Dose: 500,000 units Oxycodone HCl (Roxycodone Tab*) 10 mg PO Q6HR PRN PRN Reason: PAIN - MODERATE Last Admin: 09/21/19 20:15 Dose: 10 mg Pantoprazole Sodium (Protonix Tab*) 40 mg PO 1999 [facility] Last Admin: 09/23/19 20:47 Dose: 40 mg Pharmacy Profile Note (Fentanyl Patch Check Q Shift) 1 note FOLLOW UP 0700, 1900 [facility] Last Admin: 09/24/19 06:47 Dose: 1 note Tiotropium [place] (Spiriva Respimat 2.5 Mcg) 2 puff INH DAILY [facility] Last Admin: 09/23/19 09:27 Dose: 2 puff Objective: [] Vital Signs Temp Pulse Resp BP Pulse Ox 97.9 F 68 16 100/38 95 09/24/19 08:26 09/24/19 08:26 09/24/19 08:26 09/24/19 08:26 08:26 HEENT: pale, dry mouth CTA RRR s1s2, tachy +BS, mild tenderness, distended +2 ALISA Assessment: []End stage HCC now s/p peritonitis recovering on antibiotics. Remains very weak and ECOG PS of 2. Discussed case and prognosis. There is no role for therapy, will only make her more ill. Goal is QOL and time with grandchildren. Discussed with patient and her daughter, Yi Alfonso. Assessment: [This is a 74 yo female with HCC who has not initiated therapy at this time who presented to the oncology clinic with severe lethargy, poor oral intake, increased ascites and abd pain. Cell counts on peritoneal fluid was indicative of SBP and fluid cultures grew Klebsiella. ] Plan: [1. Peritonitis - Klebsiella growing from peritoneal fluid, sensitive to cephalosporins - blood cultures are negative - cont cefepime during hospital stay, convert to 1g ceftriaxone daily at discharge for a total of 2 weeks followed by an additional 4 weeks of Augmentin per ID recommendations - it appears that Klebsiella grew on gallbladder biopsy from 09/03 which may have been the inciting factor for this event of peritonitis - she was treated with 10d of cefepime at the time that culture was resulted - no abscess noted on CT A/P 2. HCC. Consultation hospice 3. Afib - now spontaneously converted to sinus - cont diltiazem -d/c telemetry 4. h/o portal vein thrombus - cont lovenox, renally adjusted dose to 1mg/kg q 24h 5. Anemia - stool heme occult negative - No further intervention. 6. Hypoxia - may be due to fluid overload, she is certainly anasarcic - Lasix PO and follow - Oxygen as ndede. 7. LUE edema - no DVT 8. Dispo: pt is interested in [facility], referrals have been sent, hospice on discharge []
[2019-09-24] MEDS: SPIRIVA Respimat* (tiotropium) 2.5 mcg/inh Inhaler INH SCH (11:00)
[2019-09-24] MEDS: Cefepime 2 GM in Dextrose(*) 2 GM/50 ML BAG IV SCH (17:21)
[2019-09-24] MEDS: Enoxaparin(*) 100 MG/ML SYR SUBCUT SCH (17:22)
[2019-09-24] MEDS: Pantoprazole TAB * 40 MG TAB PO SCH (20:54)
[2019-09-24] MEDS: oxyCODONE TAB* 5 MG TAB PO PRN (20:54)
[2019-09-24] MEDS: Gabapentin CAP(*) 300 MG PO SCH (20:54)
[2019-09-25] MEDS: Levothyroxine TAB* 100 MCG TAB PO SCH (06:18)
[2019-09-25] MEDS: fentaNYL Patch Check Q Shift 1 NOTE FOLLOW UP SCH ×2 (06:52→19:20)
[2019-09-25] MEDS: Nystatin SUSPENSION* 100000 UNITS/ML 5 ML UDC PO SCH ×5 (08:24→20:24)
[2019-09-25] MEDS: Citalopram TAB* 10 MG PO SCH (08:24)
[2019-09-25] MEDS: Diltiazem CD CAP* 120 MG PO SCH (08:24)
[2019-09-25] MEDS: SPIRIVA Respimat* (tiotropium) 2.5 mcg/inh Inhaler INH SCH (11:00)
--- NOTE | 2019-09-25 13:08 | PN ---
Progress Note - Progress Note Date of Service: 09/25/19 Note: Pt unable to stay awake left message on daughter Reema's phone about a family meeting on Friday.
[2019-09-25 13:33] LABS: Hematocrit 29 % (35-47); Hemoglobin 9.4 g/dL (12.0-16.0); Mean Corpuscular HGB Conc 33 g/dL (31-36); Mean Corpuscular Hemoglobin 36 pg (27-31); Mean Corpuscular Volume 112 fL (80-97); Mean Platelet Volume 8.8 fL (7.4-10.4); Platelet Count 171 10^3/uL (150-450); Red Blood Count 2.57 10^6 /uL (3.70-4.87); Red Cell Distribution Width 20 % (10-15); White Blood Count 9.5 10^3/uL (3.5-10.8)
[2019-09-25 13:40] LABS: Albumin 2.8 g/dL (3.2-5.2); Albumin/Globulin Ratio 0.8 (1-3); Calcium 8.3 mg/dL (8.6-10.3); EGFR African American 25.7 (>60); EGFR Non-African American 21.2 (>60); Globulin 3.4 g/dL (2-4); Potassium 4.8 mmol/L (3.5-5.0); Total Bilirubin 3.6 mg/dL (0.2-1.0); Total Protein 6.2 g/dL (6.4-8.9)
[2019-09-25 14:18] LABS: Nucleated Red Blood Cells % 0.2
[2019-09-25 14:26] LABS: ABS Eosinophils 0.2 10^3/ul (0-0.6)
[2019-09-25 14:27] LABS: ABS Basophils 0.3 10^3/ul (0-0.2)
--- NOTE | 2019-09-25 15:09 | PN ---
Progress Note - Progress Note Date of Service: 09/25/19 SOAP: Subjective: [More lethargic today. She did not awake during exam. Family that had been present for ~1 hour did not see her awake. Seemed to be more lethargic starting last night.] Objective: [ Vital Signs: Temp Pulse Resp BP Pulse Ox 97.3 F 113 20 103/74 95 09/25/19 11:15 09/25/19 11:15 09/25/19 11:15 09/25/19 11:15 09/25/19 11:15 Acetaminophen (Tylenol Tab*) 650 mg PO Q6H PRN PRN Reason: PAIN - MILD Albuterol (Ventolin 2.5 Mg/3 Ml Neb.Michaela*) 2.5 mg INH Q4H PRN PRN Reason: DYSPNEA Citalopram Hydrobromide (Celexa Tab*) 10 mg PO DAILY [facility] Last Admin: 09/25/19 08:24 Dose: 10 mg Diltiazem HCl (Cardizem Cd Cap*) 120 mg PO DAILY [facility] Last Admin: 09/25/19 08:24 Dose: 120 mg Enoxaparin Sodium (Lovenox(*)) 85 mg SUBCUT Q24H [facility] Last Admin: 09/24/19 17:22 Dose: 85 mg Fentanyl (Duragesic Patch 50 Mcg/Hr*) 50 mcg TRANSDERM Q72HR [facility] Last Admin: 09/23/19 09:28 Dose: 50 mcg Gabapentin (Neurontin Cap(*)) 300 mg PO BEDTIME [facility] Last Admin: 09/24/19 20:54 Dose: 300 mg Heparin Sodium (Porcine) (Heparin Flush Picc/Ml/Cvc(*)) 1 - 3 ml FLUSH 0600, 1800 [facility]; Protocol Last Admin: 09/25/19 06:15 Dose: 1 ml Cefepime HCl (Maxipime 2 Gm In Dextrose Duplex (*)) 2 gm in 50 mls @ 100 mls/ hr IV Q24H [facility] Last Admin: 09/24/19 17:21 Dose: 100 mls/hr Sodium Chloride (Ns 0.9% 1000 Ml) 1,000 mls @ 50 mls/hr IV .PER RATE [facility] Levothyroxine Sodium (Synthroid Tab*) 100 mcg PO QAM@0600 [facility] Last Admin: 09/25/19 06:18 Dose: 100 mcg Nystatin (Nystatin Suspension*) 500,000 units PO QID [facility] Stop: 09/28/19 11:13 Last Admin: 09/25/19 13:36 Dose: 500,000 units Oxycodone HCl (Roxycodone Tab*) 10 mg PO Q6HR PRN PRN Reason: PAIN - MODERATE Last Admin: 09/24/19 20:54 Dose: 10 mg Pantoprazole Sodium (Protonix Tab*) 40 mg PO 1999 [facility] Last Admin: 09/24/19 20:54 Dose: 40 mg Pharmacy Profile Note (Fentanyl Patch Check Q Shift) 1 note FOLLOW UP 0700, 1900 [facility] Last Admin: 09/25/19 06:52 Dose: 1 note Tiotropium [place] (Spiriva Respimat 2.5 Mcg) 2 puff INH DAILY [facility] Last Admin: 09/25/19 11:00 Dose: Not Given Laboratory Results - last 24 hr 09/25/19 09/25/19 09/25/19 13:11 13:11 13:11 WBC 9.5 RBC 2.57 L Hgb 9.4 L Hct 29 L MCV 112 H MCH 36 H MCHC 33 RDW 20 H Plt Count 171 MPV 8.8 Neut % (Auto) Not Reportable Lymph % (Auto) Not Reportable [place] % (Auto) Not Reportable Eos % (Auto) Not Reportable Baso % (Auto) Not Reportable Absolute Neuts (auto) Not Reportable Absolute Lymphs (auto) Not Reportable Absolute Monos (auto) Not Reportable Absolute Eos (auto) Not Reportable Absolute Basos (auto) Not Reportable Absolute Nucleated RBC 0.0 Neutrophils % 79.0 Lymphocytes % 10.0 Monocytes % 6.0 Eosinophils % 2.0 Basophils % 3.0 Nucleated RBC % 0.2 Abs Neuts (Manual) 7.5 Abs Lymphs (Manual) 1.0 Abs Monocytes (Manual) 0.6 Absolute Eos (Manual) 0.2 Abs Basophils (Manual) 0.3 H Normal RBC Morphology Not Reportable Anisocytosis 2+ Macrocytosis 2+ Target Cells 1+ Sodium 133 L Potassium 4.8 Chloride 105 Carbon Dioxide 17 L Anion Gap 11 BUN 79 H Creatinine 2.26 H Est GFR ( Amer) 25.7 Est GFR (Non-Af Amer) 21.2 BUN/Creatinine Ratio 35.0 H Glucose 98 Calcium 8.3 L Total Bilirubin 3.60 H AST 93 H ALT 46 Alkaline Phosphatase 132 H Ammonia 61 H Total Protein 6.2 L Albumin 2.8 L Globulin 3.4 Albumin/Globulin Ratio 0.8 L Exam: Gen: chronically ill appearing 74 yo female in NAD, very lethargic and does not awaken to voice or light touch during exam HEENT: mildly dry MM CV: RRR, 2/6 murmur Resp: CTA, no w/c/r Abd: distended, +ascites, soft nonTTP Ext: 2+ LE edema, 1+ LUE edema with some TTP, PICC line in LUE Assessment: [This is a 74 yo female with HCC who has not initiated therapy at this time who presented to the oncology clinic with severe lethargy, poor oral intake, increased ascites and abd pain. Cell counts on peritoneal fluid was indicative of SBP and fluid cultures grew Klebsiella. ] Plan: [1. Peritonitis - Klebsiella growing from peritoneal fluid, sensitive to cephalosporins - blood cultures are negative - cont cefepime during hospital stay, convert to 1g ceftriaxone daily at discharge for a total of 2 weeks followed by an additional 4 weeks of Augmentin per ID recommendations - it appears that Klebsiella grew on gallbladder biopsy from 09/03 which may have been the inciting factor for this event of peritonitis - she was treated with 10d of cefepime at the time that culture was resulted - no abscess noted on CT A/P - received albumin on days 1 and 3 2. HCC - her performance status has not improved in any significant way, Dr Toro has recommended a referral to Hospice, consult pending 3. Encephalopathy, metabolic - mental status has declined over the last 24 hours - ammonia only slightly elevated - worsening uremia from renal failure may be the culprit 4. Hepatorenal syndrome - renal function has become worse - she is grossly anasarcic with a large amount of ascites but looks intravascularly dry - will start maintenance fluids and see if this improves her mental status 5. Afib - now spontaneously converted to sinus - cont diltiazem 6. h/o portal vein thrombus - cont lovenox, renally adjusted dose to 1mg/kg q 24h, but will increase back to full dose when CrCl >30 7. Anemia - stool heme occult negative 8. FULL CODE - reviewed again with family, they would like to maintain full code status as this was Contreras's wishes at admission - will cont to readdress Dispo: Hospice consult pending. Anticipate [facility] to complete recommended IV abx and then transition to Hospice delivered at [facility]
[2019-09-25] MEDS: NS 0.9% 1000 ML** 1,000 ML IV SCH (16:53)
[2019-09-25] MEDS: Enoxaparin(*) 100 MG/ML SYR SUBCUT SCH (16:53)
[2019-09-25] MEDS: Cefepime 2 GM in Dextrose(*) 2 GM/50 ML BAG IV SCH (19:18)
[2019-09-25] MEDS: Pantoprazole TAB * 40 MG TAB PO SCH (20:25)
[2019-09-25] MEDS: Gabapentin CAP(*) 300 MG PO SCH (20:27)
[2019-09-26] MEDS: Levothyroxine TAB* 100 MCG TAB PO SCH (06:07)
[2019-09-26] MEDS: fentaNYL Patch Check Q Shift 1 NOTE FOLLOW UP SCH ×2 (06:38→18:28)
[2019-09-26 06:43] LABS: Albumin 2.6 g/dL (3.2-5.2); Albumin/Globulin Ratio 0.8 (1-3); BUN/Creatinine Ratio 32.8 (8-20); Calcium 8.1 mg/dL (8.6-10.3); EGFR African American 23.2 (>60); EGFR Non-African American 19.1 (>60); Globulin 3.3 g/dL (2-4); Potassium 4.9 mmol/L (3.5-5.0); Total Bilirubin 3.3 mg/dL (0.2-1.0); Total Protein 5.9 g/dL (6.4-8.9)
[2019-09-26 06:53] LABS: Hematocrit 28 % (35-47); Hemoglobin 9.3 g/dL (12.0-16.0); Mean Corpuscular HGB Conc 34 g/dL (31-36); Mean Corpuscular Hemoglobin 37 pg (27-31); Mean Corpuscular Volume 111 fL (80-97); Mean Platelet Volume 8.8 fL (7.4-10.4); Platelet Count 188 10^3/uL (150-450); Red Cell Distribution Width 20 % (10-15); White Blood Count 9.4 10^3/uL (3.5-10.8)
[2019-09-26] MEDS: fentaNYL PATCH 50 MCG/HR TRANSDERM SCH (07:40)
[2019-09-26] MEDS: Nystatin SUSPENSION* 100000 UNITS/ML 5 ML UDC PO SCH ×4 (07:40→21:35)
[2019-09-26 07:45] LABS: Burr Cells 1+
[2019-09-26] MEDS: Citalopram TAB* 10 MG PO SCH (07:45)
[2019-09-26] MEDS: Diltiazem CD CAP* 120 MG PO SCH (07:46)
[2019-09-26 09:36] LABS: Urine Appearance Turbid; Urine Bacteria Absent (Absent); Urine Bilirubin Negative (Negative); Urine Blood 3+ (Negative); Urine Color Amber; Urine Glucose Negative (Negative); Urine Ketones Trace (Negative); Urine Nitrite Negative (Negative); Urine Protein Negative (Negative); Urine Red Blood Cell 3+(>10/hpf) (Absent); Urine Specific Gravity 1.017 (1.010-1.030); Urine Urobilinogen Negative (Negative); Urine White Blood Cell Absent (Absent)
[2019-09-26] MEDS: NS 0.9% 1000 ML** 1,000 ML IV SCH (11:10)
[2019-09-26] MEDS: SPIRIVA Respimat* (tiotropium) 2.5 mcg/inh Inhaler INH SCH (11:54)
[2019-09-26] MEDS ORDERED: Morphine 4 MG/ML VIAL (1 ml) 4 MG/ML VIAL IV PRN (12:05)
[2019-09-26] MEDS ORDERED: Morphine INJ* 4 MG/ML 1 ML SYRINGE (NEW SYRINGE VERSION) IV PRN ×2 (12:06→12:21)
[2019-09-26] MEDS ORDERED: NS 0.9% 1000 ML** 1,000 ML IV SCH (12:47)
--- NOTE | 2019-09-26 12:59 | PN ---
Progress Note - Progress Note Date of Service: 09/26/19 SOAP: Subjective: [No changes overnight. Her mental status has not improved. She has not been alert in >24h and has had no po intake over that period of time. Nursing noted little urine output overnight, De Santiago catheter was placed which yielded only 150ml of concentrated urine. ] Objective: [ Vital Signs: Temp Pulse Resp BP Pulse Ox 97.4 F 65 18 103/34 97 09/26/19 11:50 09/26/19 11:50 09/26/19 12:21 09/26/19 11:50 09/26/19 11:50 Acetaminophen (Tylenol Tab*) 650 mg PO Q6H PRN PRN Reason: PAIN - MILD Albuterol (Ventolin 2.5 Mg/3 Ml Neb.Michaela*) 2.5 mg INH Q4H PRN PRN Reason: DYSPNEA Citalopram Hydrobromide (Celexa Tab*) 10 mg PO DAILY [facility] Last Admin: 09/26/19 07:45 Dose: 10 mg Diltiazem HCl (Cardizem Cd Cap*) 120 mg PO DAILY [facility] Last Admin: 09/26/19 07:46 Dose: 120 mg Enoxaparin Sodium (Lovenox(*)) 85 mg SUBCUT Q24H [facility] Last Admin: 09/25/19 16:53 Dose: 85 mg Fentanyl (Duragesic Patch 50 Mcg/Hr*) 50 mcg TRANSDERM Q72HR [facility] Last Admin: 09/26/19 07:40 Dose: 50 mcg Gabapentin (Neurontin Cap(*)) 300 mg PO BEDTIME [facility] Last Admin: 09/25/19 20:27 Dose: 300 mg Heparin Sodium (Porcine) (Heparin Flush Picc/Ml/Cvc(*)) 1 - 3 ml FLUSH 0600, 1800 [facility]; Protocol Last Admin: 09/26/19 06:07 Dose: 1 ml Cefepime HCl (Maxipime 2 Gm In Dextrose Duplex (*)) 2 gm in 50 mls @ 100 mls/ hr IV Q24H [facility] Last Admin: 09/25/19 19:18 Dose: 100 mls/hr Sodium Chloride (Ns 0.9% 1000 Ml) 1,000 mls @ 100 mls/hr IV .PER RATE [facility] Levothyroxine Sodium (Synthroid Tab*) 100 mcg PO QAM@0600 [facility] Last Admin: 09/26/19 06:07 Dose: 100 mcg Morphine Sulfate (Morphine Inj (Syringe)*) 4 mg IV Q2H PRN PRN Reason: PAIN - MODERATE Nystatin (Nystatin Suspension*) 500,000 units PO QID [facility] Stop: 09/28/19 11:13 Last Admin: 09/26/19 11:54 Dose: Not Given Oxycodone HCl (Roxycodone Tab*) 10 mg PO Q6HR PRN PRN Reason: PAIN - MODERATE Last Admin: 09/24/19 20:54 Dose: 10 mg Pantoprazole Sodium (Protonix Tab*) 40 mg PO 1999 [facility] Last Admin: 09/25/19 20:25 Dose: 40 mg Pharmacy Profile Note (Fentanyl Patch Check Q Shift) 1 note FOLLOW UP 0700, 1900 [facility] Last Admin: 09/26/19 06:38 Dose: 1 note Tiotropium B[place] (Spiriva Respimat 2.5 Mcg) 2 puff INH DAILY [facility] Last Admin: 09/26/19 11:54 Dose: Not Given Laboratory Results - last 24 hr 09/25/19 09/26/19 09/26/19 13:11 05:36 06:00 WBC 9.5 9.4 RBC 2.57 L 2.50 L Hgb 9.4 L 9.3 L Hct 29 L 28 L MCV 112 H 111 H MCH 36 H 37 H MCHC 33 34 RDW 20 H 20 H Plt Count 171 188 MPV 8.8 8.8 Neut % (Auto) Not Reportable Not Reportable Lymph % (Auto) Not Reportable Not Reportable [place] % (Auto) Not Reportable Not Reportable Eos % (Auto) Not Reportable Not Reportable Baso % (Auto) Not Reportable Not Reportable Absolute Neuts (auto) Not Reportable [employer] Absolute Lymphs (auto) Not Reportable [employer] Absolute Monos (auto) Not Reportable [employer] Absolute Eos (auto) Not Reportable [employer] Absolute Basos (auto) Not Reportable [employer] Absolute Nucleated RBC 0.[address] [employer] Immature Gran % 1.0 Neutrophils % 79.0 87.0 Band Neutrophils % 1.0 Lymphocytes % 10.0 5.0 Monocytes % 6.0 1.0 Eosinophils % 2.0 4.0 Basophils % 3.0 2.0 Nucleated RBC % 0.[address] [employer] Abs Neuts (Manual) 7.5 Abs Lymphs (Manual) 1.0 Abs Monocytes (Manual) 0.6 Absolute Eos (Manual) 0.2 Abs Basophils (Manual) 0.3 H Normal RBC Morphology Not Reportable Not Reportable Hypochromasia 1+ Anisocytosis 2+ 1+ Macrocytosis 2+ 1+ Target Cells 1+ 2+ [place] Cells 1+ Sodium 133 L Potassium 4.9 Chloride 106 Carbon Dioxide 16 L Anion Gap 11 BUN 81 H Creatinine 2.47 H Est GFR ( Amer) 23.2 Est GFR (Non-Af Amer) 19.1 BUN/Creatinine Ratio 32.8 H Glucose 99 Calcium 8.1 L Total Bilirubin 3.30 H AST 91 H ALT 44 Alkaline Phosphatase 128 H Total Protein 5.9 L Albumin 2.6 L Globulin 3.3 Albumin/Globulin Ratio 0.8 L Urine Color Urine Appearance Urine pH Ur Specific [place] Urine Protein Urine Ketones Urine Blood Urine Nitrate Urine Bilirubin Urine Urobilinogen Ur Leukocyte Esterase Urine WBC (Auto) Urine RBC (Auto) Urine Bacteria Hyaline Casts Urine Glucose 09/26/19 09:20 WBC RBC Hgb Hct MCV MCH MCHC RDW Plt Count MPV Neut % (Auto) Lymph % (Auto) [place] % (Auto) Eos % (Auto) Baso % (Auto) Absolute Neuts (auto) Absolute Lymphs (auto) Absolute Monos (auto) Absolute Eos (auto) Absolute Basos (auto) Absolute Nucleated RBC Immature Gran % Neutrophils % Band Neutrophils % Lymphocytes % Monocytes % Eosinophils % Basophils % Nucleated RBC % Abs Neuts (Manual) Abs Lymphs (Manual) Abs Monocytes (Manual) Absolute Eos (Manual) Abs Basophils (Manual) Normal RBC Morphology Hypochromasia Anisocytosis Macrocytosis Target Cells [place] Cells Sodium Potassium Chloride Carbon Dioxide Anion Gap BUN Creatinine Est GFR ( Amer) Est GFR (Non-Af Amer) BUN/Creatinine Ratio Glucose Calcium Total Bilirubin AST ALT Alkaline Phosphatase Total Protein Albumin Globulin Albumin/Globulin Ratio Urine Color Joanna Urine Appearance Turbid Urine pH 5.0 Ur Specific [place] 1.017 Urine Protein Negative Urine Ketones Trace A Urine Blood 3+ A Urine Nitrate Negative Urine Bilirubin Negative Urine Urobilinogen Negative Ur Leukocyte Esterase Negative Urine WBC (Auto) Absent Urine RBC (Auto) 3+(>10/hpf) A Urine Bacteria Absent Hyaline Casts Present A Urine Glucose Negative Exam: Gen: chronically ill appearing 74 yo female in NAD, very lethargic and does not awaken to voice or light touch during exam HEENT: mildly dry MM CV: RRR, 2/6 murmur Resp: CTA, no w/c/r Abd: distended, +ascites, soft nonTTP Ext: 2+ LE edema, 1+ LUE edema with some TTP, PICC line in RUE Assessment: [This is a 74 yo female with HCC who has not initiated therapy at this time who presented to the oncology clinic with severe lethargy, poor oral intake, increased ascites and abd pain. Cell counts on peritoneal fluid was indicative of SBP and fluid cultures grew Klebsiella. She initially improved clinically with IV abx, but her mental status has declined significantly over the last 48h. ] Plan: [1. Peritonitis - Klebsiella growing from peritoneal fluid, sensitive to cephalosporins - blood cultures are negative - cont cefepime during hospital stay, convert to 1g ceftriaxone daily at discharge for a total of 2 weeks followed by an additional 4 weeks of Augmentin per ID recommendations - it appears that Klebsiella grew on gallbladder biopsy from 09/03 which may have been the inciting factor for this event of peritonitis - she was treated with 10d of cefepime at the time that culture was resulted - no abscess noted on CT A/P - received albumin on days 1 and 3 2. Encephalopathy - likely metabolic in origin due to worsening uremia from renal failure - ammonia level measured and only mildly elevated - will obtain non contrast CT of the brain to r/o a primary [employer] process - increase rate of IVF 3. Hepatorenal syndrome - renal function has become worse - she is grossly anasarcic with a large amount of ascites but looks intravascularly dry - cont maintenance fluids and see if this improves her mental status, but this is a poor prognostic indicator in the setting of peritonitis - check renal US to r/o obstruction - cont to monitor output via De Santiago catheter 4. HCC - her performance status has not improved in any significant way, Dr Toro has recommended a referral to Hospice, consult pending with a family meeting scheduled for noon tomorrow 5. Afib - now spontaneously converted to sinus - cont diltiazem 6. h/o portal vein thrombus - cont lovenox, renally adjusted dose to 1mg/kg q 24h, but will increase back to full dose if CrCl >30 7. Anemia - stool heme occult negative 8. FULL CODE - reviewed again with family, they would like to maintain full code status as this was Contreras's wishes at admission, but seem more willing to consider DNR status on today's discussion - will cont to readdress 9. HCP - patient's son, Regis, is listed as her primary proxy with her daughter Kareen as back up Dispo: Hospice consult pending. Initially suggested completing her IV abx at [facility] and then transitioning to Hospice. However, given her decline in mental status over the last 48h it seems more appropriate to avoid completing her full course of abx and initiating Hospice following dc.
[2019-09-26] MEDS: Cefepime 2 GM in Dextrose(*) 2 GM/50 ML BAG IV SCH (16:53)
[2019-09-26] MEDS: Enoxaparin(*) 100 MG/ML SYR SUBCUT SCH (16:53)
[2019-09-26] MEDS: Pantoprazole TAB * 40 MG TAB PO SCH (21:35)
[2019-09-26] MEDS: Gabapentin CAP(*) 300 MG PO SCH (21:35)
[2019-09-27 04:39] VITALS: BP 100/39
[2019-09-27] MEDS: Levothyroxine TAB* 100 MCG TAB PO SCH (05:00)
[2019-09-27 05:42] LABS: Albumin 2.7 g/dL (3.2-5.2); Albumin/Globulin Ratio 0.7 (1-3); Calcium 8.4 mg/dL (8.6-10.3); EGFR African American 18.5 (>60); EGFR Non-African American 15.3 (>60); Globulin 3.7 g/dL (2-4); Total Bilirubin 3.7 mg/dL (0.2-1.0); Total Protein 6.4 g/dL (6.4-8.9)
[2019-09-27 05:45] LABS: Potassium 5.4 mmol/L (3.5-5.0)
[2019-09-27 05:50] LABS: Hematocrit 27 % (35-47); Hemoglobin 8.9 g/dL (12.0-16.0); Mean Corpuscular HGB Conc 33 g/dL (31-36); Mean Corpuscular Hemoglobin 37 pg (27-31); Mean Corpuscular Volume 114 fL (80-97); Mean Platelet Volume 8.8 fL (7.4-10.4); Platelet Count 246 10^3/uL (150-450); Red Blood Count 2.39 10^6 /uL (3.70-4.87); Red Cell Distribution Width 20 % (10-15)
[2019-09-27] MEDS: fentaNYL Patch Check Q Shift 1 NOTE FOLLOW UP SCH ×2 (06:09→18:48)
[2019-09-27 06:15] LABS: ABS Basophils 0.2 10^3/ul (0-0.2); ABS Eosinophils 0.1 10^3/ul (0-0.6); ABS Lymphocytes 6.5 10^3/ul (1.0-4.8); ABS Monocytes 0.1 10^3/ul (0-0.8); ABS Neutrophils 6.1 10^3/ul (1.5-7.7); ABS Nucleated RBC 0.1 10^3/ul; Eosinophil % 0.6 %; Lymphocyte % 50.1 %
[2019-09-27 06:19] LABS: Platelet Morphology Large; Polychromasia 1+
[2019-09-27] MEDS ORDERED: Sodium Bicarbonate 8.4% VIAL* 10 ML VIAL IV ONE (07:38)
[2019-09-27] MEDS: Citalopram TAB* 10 MG PO SCH (09:39)
[2019-09-27] MEDS: Diltiazem CD CAP* 120 MG PO SCH (09:39)
[2019-09-27] MEDS: SPIRIVA Respimat* (tiotropium) 2.5 mcg/inh Inhaler INH SCH (09:39)
[2019-09-27] MEDS: Nystatin SUSPENSION* 100000 UNITS/ML 5 ML UDC PO SCH (09:39)
--- NOTE | 2019-09-27 10:33 | PN ---
Progress Note - Progress Note Date of Service: 09/27/19 SOAP: Subjective: []Not responsive x 48 hrs, comfortable. Family with her in hospital today. Acetaminophen (Tylenol Tab*) 650 mg PO Q6H PRN PRN Reason: PAIN - MILD Albuterol (Ventolin 2.5 Mg/3 Ml Neb.Michaela*) 2.5 mg INH Q4H PRN PRN Reason: DYSPNEA Citalopram Hydrobromide (Celexa Tab*) 10 mg PO DAILY [facility] Last Admin: 09/27/19 09:39 Dose: Not Given Diltiazem HCl (Cardizem Cd Cap*) 120 mg PO DAILY [facility] Last Admin: 09/27/19 09:39 Dose: Not Given Enoxaparin Sodium (Lovenox(*)) 85 mg SUBCUT Q24H [facility] Last Admin: 09/26/19 16:53 Dose: 85 mg Fentanyl (Duragesic Patch 50 Mcg/Hr*) 50 mcg TRANSDERM Q72HR [facility] Last Admin: 09/26/19 07:40 Dose: 50 mcg Gabapentin (Neurontin Cap(*)) 300 mg PO BEDTIME [facility] Last Admin: 09/26/19 21:35 Dose: Not Given Heparin Sodium (Porcine) (Heparin Flush Picc/Ml/Cvc(*)) 1 - 3 ml FLUSH 0600, 1800 [facility]; Protocol Last Admin: 09/27/19 04:58 Dose: 1 ml Sodium Chloride (Ns 0.9% 1000 Ml) 1,000 mls @ 100 mls/hr IV .PER RATE [facility] Last Admin: 09/26/19 13:14 Dose: 100 mls/hr Ceftriaxone Sodium 1 gm/ (Sodium Chloride) 50 mls @ 100 mls/hr IVPB Q24H [facility] Levothyroxine Sodium (Synthroid Tab*) 100 mcg PO QAM@0600 [facility] Last Admin: 09/27/19 05:00 Dose: Not Given Morphine Sulfate (Morphine Inj (Syringe)*) 4 mg IV Q2H PRN PRN Reason: PAIN - MODERATE Last Admin: 09/27/19 07:06 Dose: 4 mg Nystatin (Nystatin Suspension*) 500,000 units PO QID [facility] Stop: 09/28/19 11:13 Last Admin: 09/27/19 09:39 Dose: Not Given Oxycodone HCl (Roxycodone Tab*) 10 mg PO Q6HR PRN PRN Reason: PAIN - MODERATE Last Admin: 09/24/19 20:54 Dose: 10 mg Pantoprazole Sodium (Protonix Tab*) 40 mg PO 1999 [facility] Last Admin: 09/26/19 21:35 Dose: Not Given Pharmacy Profile Note (Fentanyl Patch Check Q Shift) 1 note FOLLOW UP 0700, 1900 [facility] Last Admin: 09/27/19 06:09 Dose: 1 note Tiotropium [place] (Spiriva Respimat 2.5 Mcg) 2 puff INH DAILY [facility] Last Admin: 09/27/19 09:39 Dose: Not Given Objective: [] Vital Signs Temp Pulse Resp BP Pulse Ox 98.1 F 69 12 100/39 94 09/27/19 03:15 09/27/19 03:15 09/27/19 09:38 09/27/19 03:15 09/27/19 03:15 Exam: Gen: comfortable and sedated. HEENT: mildly dry MM, pale CV: RRR, 2/6 murmur Resp:dec sounds, no hypoxia Abd: distended, +ascites Ext: 2+ LE edema Assessment: [This is a 74 yo female with HCC who has not initiated therapy at this time who presented to the oncology clinic with severe lethargy, poor oral intake, increased ascites and abd pain. Course complicated by SBP and now with progressive renal and liver failure. Family meeting today and discussed that she is dying of renal failure, will not improve. Goal is supportive and she most likely has days to live. ] Plan: [1. Peritonitis. Stop antibiotics. 2. Encephalopathy - likely metabolic in origin due to worsening uremia from renal failure 3. Hepatorenal syndrome - renal function has become worse 4. HCC. No additional therapy. 5. h/o portal vein thrombus, stop anticoagulation. 7. Family meeting today and they are in agreement with comfort care. Goal is time with family, in patient care is appropriate as prognosis is very poor.
[2019-09-27] MEDS ORDERED: Acetaminophen SUPP* 650 MG SUPP PR PRN (10:35)
[2019-09-27] MEDS ORDERED: Atropine 1% (ORAL/SL)* 15 ML BTL SL PRN (10:35)
[2019-09-27] MEDS ORDERED: Morphine ORAL CONCENTRATE* 5 MG/0.25 ML ORAL.SYRIN PO PRN (10:35)
--- NOTE | 2019-09-27 14:16 | CONSULT ---
Palliative / Hospice Consult Ordering Provider: Jose Toro - PCPS[facility] Referal Reason: Goals of care/no bowel med/fentanyl & MS - Subjective Code Status: DNR Advance Directives Location: In Chart MOLST Part A Completed: Yes - on chart MOLST Part E Completed:: Yes - on chart - History or Present Illness History or Present Illness: 76yo female presents to hospital with significant decline in the last 2-3wks with poor po intake and nausea. PMH is significant for adenosquamous of the L lung 2015, autoimmune hepatitis/cirrhosis, HCC 05/2019, afib, chronic pain, connective tissue lupus, Butch thyroiditis, HTN, kidney stones and lumbar spondylosis. PSHx , 3 yrs ago, ex tob, no etoh, Reema daughter is HCP. Studies abd/pel CT large ascites, cirrhotic liver, R liver lobe lesion, small R effusion, focal nodularity bladder, venous doppler neg, CXR PICC line, H/H 8.5/26, plt 127, BUN/Cr 70/1.64, egfr 30.7, t bili 4.1, AST 89, alb 3.2 pre alb <3, UC neg and peritoneal fluid grew Klebsiella. Pt was admitted with SBP, afib, HCC, TABITHA and diarrhea. Pt admitted 03/20-03/24/2019 upper GI bleed and ER visit 02/26- for stomach pain. All history is from family and medical record. Pt is unable to contribute. Lab Values: Abnormal Lab Results 09/27/19 09/27/19 05:05 05:05 WBC 13.0 H RBC 2.39 L Hgb 8.9 L Hct 27 L MCV 114 H MCH 37 H MCHC 33 RDW 20 H Plt Count 246 MPV 8.8 Neut % (Auto) 46.9 Lymph % (Auto) 50.1 [place] % (Auto) 1.0 Eos % (Auto) 0.6 Baso % (Auto) 1.4 Absolute Neuts (auto) 6.1 Absolute Lymphs (auto) 6.5 H Absolute Monos (auto) 0.1 Absolute Eos (auto) 0.1 Absolute Basos (auto) 0.2 Absolute Nucleated RBC 0.1 Immature Gran % 2.0 Neutrophils % 88.0 Band Neutrophils % 2.0 Lymphocytes % 8.0 Monocytes % 1.0 Eosinophils % 1.0 Nucleated RBC % 1.0 Nucleated RBCs/100 WBC 1.0 H Platelet Morphology Large Normal RBC Morphology Not Reportable Polychromasia 1+ Anisocytosis 2+ Sodium 134 L Potassium 5.4 H Chloride 106 Carbon Dioxide 13 L* Anion Gap 15 H BUN 87 H Creatinine 3.00 H Est GFR ( Amer) 18.5 Est GFR (Non-Af Amer) 15.3 BUN/Creatinine Ratio 29.0 H Glucose 83 Calcium 8.4 L Total Bilirubin 3.70 H AST 104 H ALT 49 Alkaline Phosphatase 139 H Total Protein 6.4 Albumin 2.7 L Globulin 3.7 Albumin/Globulin Ratio 0.7 L Laboratory Last Values WBC 13.0 10^3/uL (3.5-10.8) H 09/27/19 05:05 RBC 2.39 10^6 /uL (3.70-4.87) L 09/27/19 05:05 Hgb 8.9 g/dL (12.0-16.0) L 09/27/19 05:05 Hct 27 % (35-47) L 09/27/19 05:05 MCV 114 fL (80-97) H 09/27/19 05:05 MCH 37 pg (27-31) H 09/27/19 05:05 MCHC 33 g/dL (31-36) 09/27/19 05:05 RDW 20 % (10-15) H 09/27/19 05:05 Plt Count 246 10^3/uL (150-450) 09/27/19 05:05 MPV 8.8 fL (7.4-10.4) 09/27/19 05:05 Neut % (Auto) 46.9 % 09/27/19 05:05 Lymph % (Auto) 50.1 % 09/27/19 05:05 [place] % (Auto) 1.0 % 09/27/19 05:05 Eos % (Auto) 0.6 % 09/27/19 05:05 Baso % (Auto) 1.4 % 09/27/19 05:05 Absolute Neuts (auto) 6.1 10^3/ul (1.5-7.7) 09/27/19 05:05 Absolute Lymphs (auto) 6.5 10^3/ul (1.0-4.8) H 09/27/19 05:05 Absolute Monos (auto) 0.1 10^3/ul (0-0.8) 09/27/19 05:05 Absolute Eos (auto) 0.1 10^3/ul (0-0.6) 09/27/19 05:05 Absolute Basos (auto) 0.2 10^3/ul (0-0.2) 09/27/19 05:05 Absolute Nucleated RBC 0.1 10^3/ul 09/27/19 05:05 Immature Gran % 2.0 % (0-9) 09/27/19 05:05 Neutrophils % 88.0 % 09/27/19 05:05 Band Neutrophils % 2.0 % (0-8) 09/27/19 05:05 Lymphocytes % 8.0 % 09/27/19 05:05 Reactive Lymphs % 1.0 % (0-6) 09/21/19 12:25 Monocytes % 1.0 % 09/27/19 05:05 Eosinophils % 1.0 % 09/27/19 05:05 Basophils % 2.0 % 09/26/19 06:00 Nucleated RBC % 1.0 09/27/19 05:05 Abs Neuts (Manual) 7.5 10^3/ul (1.5-7.7) 09/25/19 13:11 Abs Lymphs (Manual) 1.0 10^3/ul (1.0-4.8) 09/25/19 13:11 Abs Monocytes (Manual) 0.6 10^3/ul (0-0.8) 09/25/19 13:11 Absolute Eos (Manual) 0.2 10^3/ul (0-0.6) 09/25/19 13:11 Abs Basophils (Manual) 0.3 10^3/ul (0-0.2) H 09/25/19 13:11 Nucleated RBCs/100 WBC 1.0 (0-0) H 09/27/19 05:05 Platelet Morphology Large 09/27/19 05:05 Normal RBC Morphology Not Reportable 09/27/19 05:05 Polychromasia 1+ 09/27/19 05:05 Hypochromasia 1+ 09/26/19 06:00 Basophilic Stippling 1+ 09/21/19 12:25 Anisocytosis 2+ 09/27/19 05:05 Macrocytosis 1+ 09/26/19 06:00 Target Cells 2+ 09/26/19 06:00 Tear Drop Cells 1+ 09/21/19 12:25 Ron Cells 1+ 09/26/19 06:00 Hem Pathologist Commnt 09/21/19 06:53 Sodium 134 mmol/L (135-145) L 09/27/19 05:05 Potassium 5.4 mmol/L (3.5-5.0) H 09/27/19 05:05 Chloride 106 mmol/L (101-111) 09/27/19 05:05 Carbon Dioxide 13 mmol/L (22-32) L* 09/27/19 05:05 Anion Gap 15 mmol/L (2-11) H 09/27/19 05:05 BUN 87 mg/dL (6-24) H 09/27/19 05:05 Creatinine 3.00 mg/dL (0.51-0.95) H 09/27/19 05:05 Est GFR ( Amer) 18.5 (>60) 09/27/19 05:05 Est GFR (Non-Af Amer) 15.3 (>60) 09/27/19 05:05 BUN/Creatinine Ratio 29.0 (8-20) H 09/27/19 05:05 Glucose 83 mg/dL (70-100) 09/27/19 05:05 Calcium 8.4 mg/dL (8.6-10.3) L 09/27/19 05:05 Magnesium 2.2 mg/dL (1.9-2.7) 09/21/19 06:53 Total Bilirubin 3.70 mg/dL (0.2-1.0) H 09/27/19 05:05 AST 104 U/L (13-39) H 09/27/19 05:05 ALT 49 U/L (7-52) 09/27/19 05:05 Alkaline Phosphatase 139 U/L (34-104) H 09/27/19 05:05 Ammonia 61 mcmol/L (16-53) H 09/25/19 13:11 Total Protein 6.4 g/dL (6.4-8.9) 09/27/19 05:05 Albumin 2.7 g/dL (3.2-5.2) L 09/27/19 05:05 Globulin 3.7 g/dL (2-4) 09/27/19 05:05 Albumin/Globulin Ratio 0.7 (1-3) L 09/27/19 05:05 Prealbumin < 3 mg/dL (18-38) L 09/21/19 06:53 TSH 12.03 mcIU/mL (0.34-5.60) H 09/21/19 06:53 Urine Color Joanna 09/26/19 09:20 Urine Appearance Turbid 09/26/19 09:20 Urine pH 5.0 (5-9) 09/26/19 09:20 Ur Specific [place] 1.017 (1.010-1.030) 09/26/19 09:20 Urine Protein Negative (Negative) 09/26/19 09:20 Urine Ketones Trace (Negative) A 09/26/19 09:20 Urine Blood 3+ (Negative) A 09/26/19 09:20 Urine Nitrate Negative (Negative) 09/26/19 09:20 Urine Bilirubin Negative (Negative) 09/26/19 09:20 Urine Urobilinogen Negative (Negative) 09/26/19 09:20 Ur Leukocyte Esterase Negative (Negative) 09/26/19 09:20 Urine WBC (Auto) Absent (Absent) 09/26/19 09:20 Urine RBC (Auto) 3+(>10/hpf) (Absent) A 09/26/19 09:20 Ur Squamous Epith Cells Present (Absent) A 09/23/19 00:00 Ur Transition Epith Cell Present (Absent) A 09/23/19 00:00 Urine Bacteria Absent (Absent) 09/26/19 09:20 Hyaline Casts Present (Absent) A 09/26/19 09:20 Urine Glucose Negative (Negative) 09/26/19 09:20 - Objective Active Medications: Acetaminophen (Tylenol Supp*) 650 mg MS Q4H PRN PRN Reason: FEVER Atropine Sulfate (Atropine 1% (Oral/Sl)*) 2 drop SL Q2H PRN PRN Reason: Terminal Secretions Fentanyl (Duragesic Patch 50 Mcg/Hr*) 50 mcg TRANSDERM Q72HR [facility] Last Admin: 09/26/19 07:40 Dose: 50 mcg Morphine Sulfate (Morphine Inj (Syringe)*) 4 mg IV Q2H PRN PRN Reason: PAIN - MODERATE Last Admin: 09/27/19 07:06 Dose: 4 mg Morphine Sulfate (Morphine Oral Concentrate*) 10 mg PO Q2H PRN PRN Reason: PAIN - MODERATE Pharmacy Profile Note (Fentanyl Patch Check Q Shift) 1 note FOLLOW UP 0700, 1900 [facility] Last Admin: 09/27/19 06:09 Dose: 1 note Vital Signs: Vital Signs: Temp Pulse Resp BP Pulse Ox 98.1 F 69 8 100/39 94 09/27/19 03:15 09/27/19 03:15 09/27/19 11:49 09/27/19 03:15 09/27/19 03:15 Patient Weight: Weight 85.275 kg Intake and Output: Intake & Output 09/25/19 09/26/19 09/27/19 09/28/19 07:59 06:59 06:59 06:59 Intake Total 580 Output Total 0 Balance 580 Intake: IV Fluids 580 Albumin Cefipime Normal Saline 580 IVPB Albumin Cefipime Normal Saline Oral 0 Output: Urine De Santiago 0 Residual De Santiago 16 Fr Other: # Bowel Movements 0 # Voids 0 ADLs: Meal Record Start: 09/20/19 16: 06 Freq: DAILY@0900,1400,1800 Status: Active Protocol: Created 09/20/19 16:06 System (Rec: 09/20/19 16:06 System TELE-M11) Document 09/20/19 18:00 [id number] (Rec: 09/20/19 21:03 [id number] TELE-C11) Document 09/21/19 08:47 [id number] (Rec: 09/21/19 08:47 [id number] TELE-C06) Document 09/21/19 14:00 [id number] (Rec: 09/21/19 14:20 [id number] TELE-C08) Document 09/21/19 18:00 [id number] (Rec: 09/21/19 18:13 [id number] TELE-C08) Document 09/22/19 09:00 [id number] (Rec: 09/22/19 12:50 [id number] TELE-C08) Document 09/22/19 14:00 [id number] (Rec: 09/22/19 18:22 [id number] TELE-C08) Document 09/22/19 18:00 [id number] (Rec: 09/22/19 18:22 [id number] TELE-C08) Document 09/23/19 09:00 [id number] (Rec: 09/23/19 14:27 BFF4315 TELE-C01) Document 09/23/19 14:00 GVQ7853 (Rec: 09/23/19 14:29 [id number] TELE-C01) Document 09/23/19 17:39 [id number] (Rec: 09/23/19 17:40 JWO7396 TELE-M03) Document 09/24/19 08:59 [id number] (Rec: 09/24/19 08:59 [id number] TELE-C10) Document 09/24/19 13:25 FCA1254 (Rec: 09/24/19 13:25 HCW1768 TELE-C10) Document 09/24/19 18:00 [id number] (Rec: 09/24/19 18:30 RIB2371 TELE-C10) Document 09/25/19 09:00 FCN6113 (Rec: 09/25/19 13:52 SAK7049 TELE-C01) Document 09/25/19 14:00 HZQ8063 (Rec: 09/25/19 15:06 YJO3673 TELE-C01) Document 09/25/19 18:00 KYD9557 (Rec: 09/25/19 19:29 [id number] MED-M01) Document 09/26/19 09:00 BPW6286 (Rec: 09/26/19 11:13 GES4332 TELE-M21) Document 09/26/19 17:57 UFY6527 (Rec: 09/26/19 17:58 [id number] MED-C11) Intake and Output Start: 09/20/19 16: 06 Freq: DAILY@0600,1400,2200 Status: Active Protocol: Created 09/20/19 16:06 System (Rec: 09/20/19 16:06 System TELE-M11) Document 09/20/19 22:00 [id number] (Rec: 09/21/19 01:57 OHV3453 TELE-C34) Document 09/21/19 05:58 KBO0912 (Rec: 09/21/19 05:59 MAJ2102 TELE-C34) Document 09/21/19 14:00 [id number] (Rec: 09/21/19 14:20 NRE5927 TELE-C08) Document 09/21/19 22:00 QAT8845 (Rec: 09/21/19 22:31 BHT1729 TELE-C01) Document 09/22/19 05:44 SZT8769 (Rec: 09/22/19 05:44 PIZ4213 TELE-M17) Document 09/22/19 06:03 CPT0588 (Rec: 09/22/19 06:03 MNV1106 TELE-C03) Document 09/22/19 14:00 WKI9353 (Rec: 09/22/19 18:21 CEP6910 TELE-C08) Document 09/22/19 21:44 OCG5120 (Rec: 09/22/19 21:44 ITC9822 TELE-C01) Document 09/23/19 05:57 NGW3479 (Rec: 09/23/19 05:57 MSE8493 TELE-M21) Document 09/23/19 06:00 NNY7539 (Rec: 09/23/19 06:33 GLN1240 TELE-C05) Document 09/23/19 14:00 YIV8588 (Rec: 09/23/19 14:29 KSB2309 TELE-C01) Document 09/23/19 16:54 CUZ2287 (Rec: 09/23/19 16:54 VBY0643 TELE-C03) Document 09/23/19 22:00 ZRS1341 (Rec: 09/23/19 22:29 HIT2921 TELE-C07) Document 09/23/19 23:56 FWW4402 (Rec: 09/23/19 23:56 PSL5282 TELE-C09) Document 09/24/19 06:00 IKH5761 (Rec: 09/24/19 06:08 LYB8263 TELE-C09) Document 09/24/19 13:35 VNR6763 (Rec: 09/24/19 13:36 KYG3785 TELE-C10) Document 09/24/19 21:57 [id number] (Rec: 09/24/19 21:57 OZI7189 TELE-C13) Document 09/25/19 06:00 [id number] (Rec: 09/25/19 06:57 [id number] TELE-C05) Document 09/25/19 22:00 [id number] (Rec: 09/25/19 22:08 [id number] TELE-C08) Document 09/26/19 05:48 [id number] (Rec: 09/26/19 05:48 [id number] TELE-C11) Document 09/26/19 14:00 [id number] (Rec: 09/26/19 17:57 [id number] MED-C11) Document 09/26/19 22:00 [id number] (Rec: 09/26/19 22:49 [id number] MED-C11) Document 09/27/19 06:00 [id number] (Rec: 09/27/19 06:10 [id number] MED-C09) Ears/Nose/Mouth/Throat: Mucous Membranes Moist Neck: NL Appearance and Movements; NL JVP Cardiovascular: NL Sounds; No Murmurs; No JVD Respiratory: Symmetrical Chest Expansion and Respiratory Effort Abdominal: - - ascites Extremities: - - peripheral edema - Assessment Assessment: 74yo female with adenosquamous lung, HCC and autoimmune hepatitis actively dying - Plan Consult Plan (MU): Hospice Plan: Long discussion with family members Candace(), Reema(daughter), Win(son) and Martin(son)and his about goals of care. Family has chosen comfort care but they still want to have her respiratory rate and pulse checked to see if she needs pain meds. They still want her turned and oral care given. Support given and questions answered. Blue book about dying given. They were told she is unstable to transfer by attending. They anticipate that pt will . They remarked that her health has declined rapidly over the last 2 weeks. KPS 10%, PPS 10% - Time On Unit Date of Evaluation: 09/27/19 Hospice Consult Time in: 12:00 Hospice Consult Time Out: 13:00 Hospice Consult Time Total: 60 > 50% of Time Spend In Counseling or Coordinating Care: Yes
[2019-09-27] MEDS ORDERED: cefTRIAXone(*) 1 GM in NS 0.9% 50 ML* 50 ML IVPB SCH (18:00)
--- NOTE | 2019-10-04 09:20 | DS ---
SUMMARY: DATE OF ADMISSION: 09/20/19 DATE OF DISCHARGE: 09/27/19 DIAGNOSES: 1. Metastatic hepatocellular cancer. 2. Progressive liver failure. 3. Bacterial peritonitis. HOSPITAL COURSE: She was admitted on 09/20/19 with progressive abdominal pain, anorexia, and fever. She was found to have a spontaneous bacterial infection of her peritoneal fluid. She was started on IV antibiotics. Unfortunately, she continued to deteriorate throughout the hospital stay. Repeat imaging showed marked progression of disease over the past 4 weeks and she had continued rising AFP. She was with an ECOG performance status of 3. We had family meetings on 09/24/19 and on 09/27/19 . There was no effective treatment for her malignancy and given her continued deterioration, she was transitioned to comfort care measures. Family in agreement with transition to palliative services. on 09/27/19. CONDITION ON DISCHARGE: . PENDING STUDIES: None. [id number] #: [id number] MTDD
== END 2019-09-27 19:57 | disposition expired | DRG 371 ==
LOC: MEDTELE 14:47 → MED 09-26 12:17
PROVIDERS: ADMIT Internal Medicine Hematology & Oncology; ATTEND Internal Medicine Hematology & Oncology
DX: K65.2 Spontaneous bacterial peritonitis (principal); I81 Portal vein thrombosis; G93.41 Metabolic encephalopathy; K76.7 Hepatorenal syndrome; N17.9 Acute kidney failure, unspecified; C22.8 Malignant neoplasm of liver, primary, unspecified as to type; D68.62 Lupus anticoagulant syndrome; R18.8 Other ascites; C78.89 Secondary malignant neoplasm of other digestive organs; K75.4 Autoimmune hepatitis; K74.60 Unspecified cirrhosis of liver; I48.91 Unspecified atrial fibrillation; G89.4 Chronic pain syndrome; E06.3 Autoimmune thyroiditis; I10 Essential (primary) hypertension; E03.9 Hypothyroidism, unspecified; G47.30 Sleep apnea, unspecified; M47.816 Spondylosis without myelopathy or radiculopathy, lumbar region; L89.152 Pressure ulcer of sacral region, stage 2; B96.1 Klebsiella pneumoniae [K. pneumoniae] as the cause of diseases classified elsewhere; D64.9 Anemia, unspecified; K21.9 Gastro-esophageal reflux disease without esophagitis; N18.9 Chronic kidney disease, unspecified; R09.02 Hypoxemia; Z87.442 Personal history of urinary calculi; Z87.11 Personal history of peptic ulcer disease; Z87.891 Personal history of nicotine dependence; Z85.118 Personal history of other malignant neoplasm of bronchus and lung
CPT/HCPCS: 36415; 70450; 71045; 74176; 76775; 80053; 81003; 81015; 82140; 82272; 83735; 84134; 84443; 85025; 85060; 87086; 99223; 99232; 99233; A9270-GY; G8978-GP-CL; G8979-GP-CI; J0692; J0696; J1650; J1940; J2270; J3490; J3535; J7500; P9047